=== PATIENT | male | born 1935 | race Caucasian/White ===

== ENCOUNTER 2020-06-20 22:33 | Inpatient (IN) ==
[2020-06-21] MEDS ORDERED: ACETAMINOPHEN 325 MG TABLET PO ONE (00:32)
[2020-06-21] MEDS ORDERED: LACTATED RINGERS 500 ML IV ONE (00:33)
[2020-06-21] MEDS ORDERED: niCARdipine 25 MG in 0.9 % SODIUM CHLORIDE 240 ML IV SCH (00:45)
--- NOTE | 2020-06-21 02:02 | Emergency Department Note ---
Fall HPI General Chief Complaint: Fall Stated Complaint: fall Time Seen by Provider: 06/20/20 22:57 Source: family Mode of arrival: wheelchair History of Present Illness HPI Narrative: Narrative: Patient is an 85-year-old male with history of multiple previous cerebrovascular accidents who has some persistent left-sided weakness and perhaps some difficulty walking and talking who had his right leg buckle on him tonight. He notes it feels like it cramps and he has perhaps some difficulty in getting his right leg to relax. He is able to move it otherwise appropriately. He denied any fall or injury to his head. Patient is on peritoneal dialysis and has had normal dialysis in the past 24 hours. He still makes urine and has not had any blood in the urine or change in the color of the urine. was concerned that perhaps he felt a bit warm to the touch. He has not had any other ill symptoms with no sore throat or cough. There has been no skin rash. They have not had any cloudy dialysate return. Patient is not on any blood thinners. He has had some recent change from being on carvedilol to being placed on what sounds like losartan. Patient is adamant that he does not have any headache or vision change but notes that his speech is thicker or more difficult to understand the normal. Incident occurred 4 hours prior to arrival. Patient has not had influenza vaccination or Covid vaccination. Related Data Home Medications Medication Instructions Recorded Confirmed aspirin 81 mg tablet,delayed 81 mg PO QDAY tab 06/05/18 06/21/20 release fluticasone furoate 27.5 1 spray INTRANASAL QDAY PRN ml 10/13/19 06/21/20 mcg/actuation nasal spray,suspension calcium carbonate 500 mg calcium 500 mg PO QDAY PRN 01/14/20 05/25/20 (1,250 mg) capsule Previous Rx's Medication Instructions Recorded finasteride 5 mg tablet 5 mg PO QDAY #90 tab 12/04/19 sevelamer carbonate 800 mg tablet 800 mg PO .TID with meals #90 tab 12/11/19 levothyroxine 125 mcg tablet 125 mcg PO QDAY #90 tab 12/29/19 tamsulosin 0.4 mg capsule 0.4 mg PO QHS #90 cap 12/29/19 gentamicin 0.1 % topical ointment 1 applic TOPICAL TID #30 g 01/14/20 Bedside Commode See Rx Instructions .ROUTE 02/12/20 .COMPLEX #1 device omeprazole 40 mg capsule,delayed 40 mg PO QDAY #30 cap 03/17/20 release Power wheelchair #1 ea 06/02/20 losartan 25 mg tablet 25 mg PO QDAY #90 tab 06/15/20 Allergies Allergy/AdvReac Type Severity Reaction Status Date / Time pravastatin Allergy Unknown Unknown Verified 06/20/20 22:36 rosuvastatin [From Crestor] Allergy Unknown Unknown Verified 06/20/20 22:36 [id number] Reductase Allergy Unknown Unknown Verified 06/20/20 22:36 Inhibitor yellow dye Allergy Unknown rash Verified 06/20/20 22:36 atorvastatin AdvReac Unknown muscle Verified 06/20/20 22:36 aches Penicillins AdvReac Unknown Sensitive Verified 06/20/20 22:36 fish Allergy Unknown Swelling Uncoded 05/25/20 15:00 of Lip/Tongue/Throat Review of Systems ROS ROS Narrative: Narrative: A 10 system review of systems was performed and found to be negative except as outlined above. [facility] Narrative Patient History Narrative: Narrative: Medical/Surgical/Family History All Active Problems (Updated 06/21/20 @ 04:56 by Mario Huynh MD) Right shoulder pain (Acute) Special needs due to difficulty walking unassisted (Acute) ESRD on peritoneal dialysis (Acute) Annual physical exam (Acute) Medicare annual wellness visit, initial (Acute) Encounter for peritoneal dialysis for ESRD (Acute) Hospital discharge follow-up (Acute) Rheumatoid arthritis (Acute) Inflammatory arthritis (Acute) 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 (Acute) COVID-19 virus IgG antibody test result unknown (Acute) Chronic systolic congestive heart failure due to valvular disease (Chronic) 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 stage 5 chronic kidney disease (Chronic) MGUS (monoclonal gammopathy of unknown significance) (Chronic) Secondary hyperparathyroidism of renal origin (Chronic) Anemia due to stage 4 chronic kidney disease (Chronic) Pseudobulbar affect (Acute) Chest pain (Acute) Prediabetes (Acute) Metabolic acidosis (Acute) Chronic Kidney Disease (Chronic) CKD (chronic kidney disease) stage 4, GFR 15-29 ml/min (Chronic) Abrasion (Acute) Cellulitis and abscess (Acute) Ankle sprain (Acute) Bronchitis (Acute) History of tonsillectomy (Acute) History of inguinal hernia repair, bilateral (Acute) History of hernia surgery (Acute) History of appendectomy (Acute) Vitamin D deficiency (Acute) Urinary tract infection (Acute 10/08/13) Urinary retention (Acute) Hypertrophy of nasal turbinates (Acute) Personal history of transient ischemic attack (TIA) and cerebral infarction without residual deficit (Acute) Testosterone deficiency (Acute) Testicular hypofunction (Acute) Sleep apnea (Acute) Renal osteodystrophy (Chronic) Nocturia (Acute) Mitral and aortic valve regurgitation (Acute) Incomplete bladder emptying (Acute 08/31/13) Hypertensive renal disease (Chronic) Hypertension, essential (Chronic) Hyperlipidemia (Acute) Erectile dysfunction (Acute) Elevated prostate specific antigen (PSA) (Acute) Edema (Acute) Depression (Acute) Stage III chronic kidney disease (Acute) Cerebrovascular disease (Acute) CVA (cerebral vascular accident) (Acute) Benign prostatic hypertrophy with lower urinary tract symptoms (LUTS) (Acute 08/31/13) Alkalosis (Acute) Medical History (Updated 06/21/20 @ 04:56 by Mario Huynh MD) Abrasion Alkalosis Anemia due to stage 4 chronic kidney disease No need for CALI therapy at this point Ankle sprain Annual physical exam 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 PD catheter placed on 12/24/2019. Training has begun. 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 Hypertrophy of nasal turbinates 02/23/2014-Dr Gutierrez Incomplete bladder emptying (08/31/13) Medicare annual wellness visit, initial Mitral and aortic valve regurgitation Nocturia 2-3 times a night Personal history of transient ischemic attack (TIA) and cerebral infarction without residual deficit Right sided numbness Prediabetes Pseudobulbar affect Results of prior CVA Renal osteodystrophy Monitor calcium phosphorus PTH and alkaline phosphatase Right shoulder pain Sleep apnea uses an oral device Special needs due to difficulty walking unassisted Stage III chronic kidney disease Testicular hypofunction Testosterone deficiency Type 2 diabetes mellitus borderline. No drug therapy Urinary retention Urinary tract infection (10/08/13) Vitamin D deficiency Surgical History History of appendectomy History of hernia surgery History of inguinal hernia repair, bilateral History of tonsillectomy Family History Mother Asthma Cardiac disease Enlarged heart Family history of malignant neoplasm of breast in first degree relative Father Essential hypertension Social History Smoking Status: Never smoker Alcohol Intake Frequency: holiday/special occasion only Substance Use: does not use Exam Narrative Narrative: Narrative: General: Alert, cooperative with exam. Able to answer questions appropriately but is with his speech being somewhat thick tongued HEENT: NCAT, PERRL, Oral pharynx with dry mucus membranes. No pharyngeal eryth chin. No conjunctival pallor Neck: Supple, No lymphadenopathy Chest: Stable Heart: Regular rate and rhythm without murmur Lungs: Clear to auscultation bilaterally Abdomen: Soft, nondistended, nontender. He has lower abdominal peritoneal dialysis catheter in place : No bladder distention Back: Nontraumatic, No CVA tenderness to palpation. Skin: No rash or lesion Extremity: No cyanosis or edema, pulses 1+ radial Neurologic: Cranial nerves III through XII appearing overall symmetric and intact. When asked to smile or show me his teeth his facial movements are symmetric but at times when he is speaking there is question of slight left facial droop which is not consistent. His speech is somewhat thick tongue and but understandable. Given his history of stroke it is difficult to say if this is acute but patients feels that the speech is worse than his baseline. Strength is 5 out of 5 bilateral upper and lower extremities with sensation intact. He is lifting and moving his right leg above the gurney noting that it feels crampy but there is appearing normal muscle movement with no calf swelling or tenderness and no focal muscle spasm appreciable. Again in general with the coordination of his movements he seems to be with some difficulty with fine motor control and dexterity Course Vital Signs Vital signs: Vital Signs Temperature 98.5 F 06/20/20 22:37 Pulse Rate 93 H 06/20/20 22:37 Respiratory Rate 16 06/20/20 22:37 Blood Pressure 177/124 06/20/20 22:37 Pulse Oximetry (%) 95 06/20/20 22:37 Temperature 98.4 F 06/21/20 00:34 Pulse Rate 106 H 06/21/20 02:55 Respiratory Rate 18 06/21/20 04:16 Blood Pressure 182/121 06/21/20 04:16 Pulse Oximetry (%) 91 06/21/20 02:55 MDM MDM Narrative Medical decision making narrative: Narrative: Patient presents 4 hours after an episode at home where his legs seem to give out on him and he was with spasm. He is with strength 5 out of 5 in all 4 extremities but there is some slowness in the coordination of his movements but overall this is symmetric. Certainly if he was with some degree of infection he could be with weakness or difficulty with coordination if he was hypovolemic after dialysis. Patient is however with blood pressures that were elevated up to 200. Considered hypertensive urgency or emergency and have placed him on a nicardipine drip. CT of the head did not show any intracranial hemorrhage but did show significant atrophy as well as evidence of previous infarcts but also question of a small lacunar infarct. I contemplated doing angiogram of the brain for better evaluation but given that patient is over the age of 84 had been with a potential fall despite there not being any evidence of head injury, as well as no lateralizing symptoms and his current maintained speech and that the onset was over 6 hours ago I did not feel the patient met criteria for extended protocols for TPA. At this time will continue with appropriate blood pressure management and talk to hospitalist for admission with consideration of MRI in the morning. Have discussed this consideration as well as the decision making on the angiogram of the brain with patient as well as . Regarding his right leg cramping, there does not appear to be any focal swelling or calf tenderness to imply blood clot. The leg is warm and well-perfused without evidence of arterial clot. He is lifting and moving the leg without evidence of hip fracture or other bony injury. There is no palpable hernia or abdominal pain associated with this complaint. May assume some degree of discomfort related to the current stroke. I do not have explanation for the patient to have speech changes and a focal right leg cramp that was not related to central neurologic cause. Lab Data Result diagrams: 06/21/20 00:45 06/21/20 00:34 Labs: Lab Results 06/21/20 06/21/20 06/21/20 Range/Units 00:34 00:45 00:45 WBC 6.8 (4.5-11.0) K/mcL RBC 3.37 L (4.50-5.90) M/mcL Hgb 10.8 L (13.5-16.5) g/dL Hct 33.7 L (41.0-55.0) % POC Hct 31 L (41-55) % MCV 100.0 (80.0-100.0) fL MCH 32.0 (26.0-34.0) pg MCHC 32.0 (31.0-36.0) g/dL RDW 13.5 (11.5-14.5) % Plt Count 290 (140-440) K/mcL MPV 9.8 (7.4-10.4) fL Neut % (Auto) 57.2 (38.0-78.0) % Lymph % (Auto) 25.3 (15.0-49.0) % Mobile % (Auto) 10.8 (1.0-12.0) % Eos % (Auto) 6.0 (0.0-7.0) % Baso % (Auto) 0.7 (0.0-2.0) % Lymph # (Auto) 1.72 (1.50-4.80) K/mcL Mobile # (Auto) 0.73 (0.10-0.90) K/mcL Eos # (Auto) 0.41 (0.00-0.70) K/mcL Baso # (Auto) 0.05 (0.00-0.20) K/mcL Absolute Neutrophils 3.88 (1.80-8.00) K/mcL POC PT (11.9-14.5) sec PT (11.9-14.5) sec POC INR (0.8-1.2) INR (0.9-1.1) APTT (20.0-37.0) sec ABG Methemoglobin (0.4-1.5) % VBG pH (7.32-7.42) U VBG pCO2 (41.0-51.0) mmHg VBG pO2 (25.0-40.0) mmHg VBG HCO3 (24.0-28.0) mmol/L VBG Total CO2 (25.0-29.0) mmol/L VBG O2 Saturation (40.0-70.0) % VBG Base Excess (-2-3) Carboxyhemoglobin (0.0-1.5) % THgb Total Hemoglobin (13.5-16.5) gm/Dl POC Sodium 143 (133-145) mEq/L Sodium 139 (133-145) mmol/L POC Potassium 3.7 (3.3-5.1) mEql/L Potassium 3.8 (3.3-5.1) mmol/L POC Chloride 108 (96-108) mEq/L Chloride 105 (96-108) mmol/L Carbon Dioxide 25 (22-30) mmol/L POC Total CO2 27 (22-30) mmol/L Anion Gap 9.0 (8.0-16.0) POC BUN 55 H (6-20) mg/dL BUN 64 H (8-23) mg/dL Creatinine 5.4 H* (0.7-1.2) mg/dL POC Creatinine 6.4 H* (0.6-1.2) mg/dL GFR Calculation 9 Glucose 122 H (70-105) mg/dL POC Glucose 127 H (70-105) mg/dL Calcium 8.6 (8.6-10.4) mg/dL POC WB Ioniz Calcium 1.10 L (1.16-1.32) mmEq/L Total Bilirubin 0.2 (0.1-1.0) mg/dL AST 19 (<40) U/L ALT 10 (<40) U/L Alkaline Phosphatase 56 (39-117) U/L Troponin T 0.03 H (<0.03) ng/mL Total Protein 6.0 (5.9-8.4) gm/dL Albumin 3.1 L (3.2-5.2) gm/dL Globulin 2.9 (2.2-3.7) gm/dL Albumin/Globulin Ratio 1.1 (1.0-2.3) 06/21/20 06/21/20 Range/Units 01:45 01:55 WBC (4.5-11.0) K/mcL RBC (4.50-5.90) M/mcL Hgb (13.5-16.5) g/dL Hct (41.0-55.0) % POC Hct (41-55) % MCV (80.0-100.0) fL MCH (26.0-34.0) pg MCHC (31.0-36.0) g/dL RDW (11.5-14.5) % Plt Count (140-440) K/mcL MPV (7.4-10.4) fL Neut % (Auto) (38.0-78.0) % Lymph % (Auto) (15.0-49.0) % Mobile % (Auto) (1.0-12.0) % Eos % (Auto) (0.0-7.0) % Baso % (Auto) (0.0-2.0) % Lymph # (Auto) (1.50-4.80) K/mcL Mobile # (Auto) (0.10-0.90) K/mcL Eos # (Auto) (0.00-0.70) K/mcL Baso # (Auto) (0.00-0.20) K/mcL Absolute Neutrophils (1.80-8.00) K/mcL POC PT 13.2 (11.9-14.5) sec PT 13.0 (11.9-14.5) sec POC INR 1.1 (0.8-1.2) INR 0.9 (0.9-1.1) APTT 22.2 (20.0-37.0) sec ABG Methemoglobin 0.3 L (0.4-1.5) % VBG pH 7.42 (7.32-7.42) U VBG pCO2 42.8 (41.0-51.0) mmHg VBG pO2 50.4 H (25.0-40.0) mmHg VBG HCO3 26.8 (24.0-28.0) mmol/L VBG Total CO2 28.1 (25.0-29.0) mmol/L VBG O2 Saturation 81.4 H (40.0-70.0) % VBG Base Excess 2 (-2-3) Carboxyhemoglobin 3.3 H (0.0-1.5) % THgb Total Hemoglobin 10.4 L (13.5-16.5) gm/Dl POC Sodium (133-145) mEq/L Sodium (133-145) mmol/L POC Potassium (3.3-5.1) mEql/L Potassium (3.3-5.1) mmol/L POC Chloride (96-108) mEq/L Chloride (96-108) mmol/L Carbon Dioxide (22-30) mmol/L POC Total CO2 (22-30) mmol/L Anion Gap (8.0-16.0) POC BUN (6-20) mg/dL BUN (8-23) mg/dL Creatinine (0.7-1.2) mg/dL POC Creatinine (0.6-1.2) mg/dL GFR Calculation Glucose (70-105) mg/dL POC Glucose (70-105) mg/dL Calcium (8.6-10.4) mg/dL POC WB Ioniz Calcium (1.16-1.32) mmEq/L Total Bilirubin (0.1-1.0) mg/dL AST (<40) U/L ALT (<40) U/L Alkaline Phosphatase (39-117) U/L Troponin T (<0.03) ng/mL Total Protein (5.9-8.4) gm/dL Albumin (3.2-5.2) gm/dL Globulin (2.2-3.7) gm/dL Albumin/Globulin Ratio (1.0-2.3) ED POC Tests ED POC Tests: KAREN - Influenza A Negative KAREN - Influenza B Negative KAREN - SARS Antigen Negative Discharge Plan Patient/Caregiver Discharge Instructions Pt seen by [employer]/PA only: No Clinical Impression: ESRD on peritoneal dialysis CVA (cerebral vascular accident) Qualifiers: CVA mechanism: unspecified Qualified Code(s): I63.9 - Cerebral infarction, unspecified Patient Disposition: Xfer As Inpt ([facility]) Condition: Serious Follow up with: Sarmad Quintana MD [Primary Care Provider] - Prescriptions: No Action finasteride 5 mg tablet 5 mg PO QDAY Qty: 90 RF: 3 sevelamer carbonate 800 mg tablet 800 mg PO .TID with meals Qty: 90 RF: 11 levothyroxine [Synthroid] 125 mcg tablet 125 mcg PO QDAY Qty: 90 RF: 1 tamsulosin [Flomax] 0.4 mg capsule 0.4 mg PO QHS Qty: 90 RF: 1 Hold Instructions: Doctor's Order (DME) Power wheelchair See Rx Instructions .Route .MEDSUPPLY Qty: 1 RF: 0 losartan 25 mg tablet 25 mg PO QDAY Qty: 90 RF: 3 aspirin 81 mg tablet,delayed release (DR/EC) 81 mg PO QDAY RF: 0 Flonase Sensimist 27.5 mcg/actuation spray,suspension 1 spray INTRANASAL QDAY PRN (Reason: Allergies) RF: 0 gentamicin 0.1 % ointment 1 applic TOPICAL TID Qty: 30 RF: 11 calcium carbonate 500 mg calcium (1,250 mg) capsule 500 mg PO QDAY PRNRF: 0 Bedside Commode See Rx Instructions .ROUTE .COMPLEX Qty: 1 RF: 0 omeprazole 40 mg capsule,delayed release(DR/EC) 40 mg PO QDAY Qty: 30 RF: 3
[2020-06-21 02:10] LABS: ABG Methemoglobin 0.3 % (0.4-1.5); Total Hemoglobin 10.4 gm/Dl (13.5-16.5); VBG Base Excess 2 (-2-3); VBG HCO3 26.8 mmol/L (24.0-28.0); VBG Oxygen Saturation 81.4 % (40.0-70.0); VBG PCO2 42.8 mmHg (41.0-51.0); VBG PH 7.42 U (7.32-7.42); VBG PO2 50.4 mmHg (25.0-40.0); VBG Total CO2 28.1 mmol/L (25.0-29.0)
[2020-06-21 02:12] LABS: Basophils # (Auto) 0.05 K/mcL (0.00-0.20); Basophils % (Auto) 0.7 % (0.0-2.0); Eosinophils # (Auto) 0.41 K/mcL (0.00-0.70); Hematocrit 33.7 % (41.0-55.0); Hemoglobin 10.8 g/dL (13.5-16.5); Lymphocytes # (Auto) 1.72 K/mcL (1.50-4.80); Lymphocytes % (Auto) 25.3 % (15.0-49.0); Mean Platelet Volume 9.8 fL (7.4-10.4); Monocytes # (Auto) 0.73 K/mcL (0.10-0.90); Monocytes % (Auto) 10.8 % (1.0-12.0); Neutrophils % (Auto) 57.2 % (38.0-78.0); Platelet Count 290 K/mcL (140-440); RBC 3.37 M/mcL (4.50-5.90); Red Cell Distribution Width 13.5 % (11.5-14.5); WBC 6.8 K/mcL (4.5-11.0)
[2020-06-21 02:14] LABS: POC Blood Urea Nitrogen 55 mg/dL (6-20); POC CO2 27 mmol/L (22-30); POC Chloride 108 mEq/L (96-108); POC Creatinine 6.4 mg/dL (0.6-1.2); POC Glucose, Random 127 mg/dL (70-105); POC Hematocrit 31 % (41-55); POC Potassium 3.7 mEql/L (3.3-5.1); POC Sodium 143 mEq/L (133-145)
[2020-06-21 02:15] LABS: POC INR 1.1 (0.8-1.2); POC Pro Time 13.2 sec (11.9-14.5)
[2020-06-21 02:36] LABS: Partial Thromboplastin Time 22.2 sec (20.0-37.0)
[2020-06-21 02:37] LABS: INR 0.9 (0.9-1.1)
[2020-06-21 02:48] LABS: ALT/SGPT 10 U/L (<40); AST/SGOT 19 U/L (<40); Albumin 3.1 gm/dL (3.2-5.2); Albumin/Globulin Ratio 1.1 (1.0-2.3); Alkaline Phosphatase 56 U/L (39-117); Bilirubin,Total 0.2 mg/dL (0.1-1.0); Blood Urea Nitrogen 64 mg/dL (8-23); Calcium 8.6 mg/dL (8.6-10.4); Carbon Dioxide 25 mmol/L (22-30); Chloride 105 mmol/L (96-108); Globulin 2.9 gm/dL (2.2-3.7); Glomerular Filtration Rate 9; Glucose 122 mg/dL (70-105)
--- NOTE | 2020-06-21 03:56 | Cat Scan Report ---
CLINICAL INFORMATION: COMPARISON: None. TECHNIQUE: 2.5 mm helical slices were obtained in the skull base to vertex. Following reconstruction, axial reformatted images were reviewed at bone and parenchymal windows. The exam was performed using radiation dose optimization techniques including, but not limited to, automated exposure control, adjustment of the mA and/or kV according to patient size and use of iterative reconstruction technique. FINDINGS: The ventricles, sulci, fissures, and cisterns are symmetrically enlarged compatible with moderate age-related atrophy. No subdural hemorrhage or extra-axial fluid collection appreciated. Extensive chronic ischemic changes in the cerebral white matter are expected for age. 20 mm remote lacunar infarct in the right frontal white matter extending to caudate nucleus appreciated there is also a 7 mm remote lacunar infarct in the posterior left lentiform nucleus a 6 mm remote lacunar infarct in the right pontomedullary junction. There is no intracerebral hemorrhage, mass effect, edema or other acute finding.. Bone windows show no osseous abnormality. IMPRESSION: Moderate senescent atrophy and chronic ischemic changes in the deep cerebral white matter with remote lacunar infarcts in the deep white matter, basal ganglia and right pontomedullary junction. There is no edema, hemorrhage or other acute finding Interpreted and Authenticated by: Humberto Toney 06/21/20
[2020-06-21] MEDS ORDERED: ONDANSETRON 4 MG/2 ML VIAL IV PRN ×2 (04:35→07:37)
--- NOTE | 2020-06-21 04:38 | XRay Report ---
CLINICAL INFORMATION: h/o cva COMPARISON: 01/15/2017 FINDINGS: Heart size, mediastinum and pulmonary vessels are normal. There is mild bibasilar atelectasis. No definite infiltrates or effusions. IMPRESSION: Mild bibasilar atelectasis Interpreted and Authenticated by: Humberto Toney 06/21/20
[2020-06-21 05:06] LABS: Appearance,Urine CLEAR (Clear); Bilirubin,Urine Negative (Negative); Color,Urine STRAW; Culture Indicated,Urine No; Glucose,Urine (UA) 50 mg/dL (Negative); Ketones,Urine Negative (Negative); Leukocyte Esterase,Urine Negative /ug (Negative); Mucus,Urine FEW /hpf; Nitrate,Urine Negative (Negative); Protein,Urine 30 mg/dL (Negative); Specific Gravity,Urine 1.008 (1.000-1.035); Urine Blood 0.03 mg/dL (Negative); Urine RBC < 1 /hpf (0-3); Urine Squamous Epithelial Cell 0 /hpf (0-4); Urine WBC 2 /hpf (0-4); Urobilinogen,Urine Negative
[2020-06-21 05:14] LABS: Amphetamine Screen,Urine None detected; Barbiturate Screen,Urine None detected; Benzodiazepines Screen,Urine None detected; Cannabinoid Screen,Urine None detected; Cocaine Screen,Urine None detected; Opiate Screen,Urine None detected; Oxycodone, Urine Screen None detected; Phencyclidine Screen,Urine None detected
--- NOTE | 2020-06-21 05:25 | Emergency Department Note ---
ED Note Addendum Note Addendum: ECG time 0045 demonstrates sinus rhythm at a rate of 86. QRS axis is leftward QRS duration is borderline prolonged at [address] or T wave changes concerning for ischemic process. No prior ECG available for comparison
[2020-06-21] MEDS ORDERED: POLYETHYLENE GLYCOL 3350 17 GM PACKET PO PRN (07:37)
[2020-06-21] MEDS ORDERED: ACETAMINOPHEN 650 MG/65 ML BAG IV PRN (07:37)
[2020-06-21] MEDS ORDERED: POTASSIUM CHLORIDE 40 MEQ in DEXTROSE 5% IN WATER 500 ML IV PRN (07:37)
[2020-06-21] MEDS ORDERED: ONDANSETRON 4 MG ODT TABLET SL PRN (07:37)
[2020-06-21] MEDS ORDERED: MAGNESIUM SULFATE 2 GM/50 ML BAG IV PRN (07:37)
[2020-06-21] MEDS ORDERED: BISACODYL 10 MG SUPP.RECT PR PRN (07:37)
[2020-06-21] MEDS ORDERED: FLUTICASONE FUROATE NAS PRN (07:45)
--- NOTE | 2020-06-21 07:53 | Internal Med History&Physical ---
HPI History of Present Illness Patient information: Note initiated : 06/21/20 at 7:53 am Service Date, if different from initiated Date: [] Patient: Murray Beyer 85 y/o M admitted on 06/21/20 for fall. Chief Complaint: [] History of present illness: Mr. Beyer is a 85 year old M with a history of IHD, last EF 55%/PCI with stenting/recurrent CVA and ESRD on PD who presents to the ER with left-sided weakness that started roughly 6 hours prior to presentation. Patient was brought into the ER for evaluation. Patient underwent neuroimaging including head CT which was unremarkable for acute process. Following ER evaluation patient was beyond the window for intervention/TPA. Hospitalist service was consulted due to persistent weakness and CVA symptoms, systolics over 200. In the ER patient was started on nicardipine drip. At the time of my evaluation patient is weak on the left side, demonstrate expressive aphasia. Most of the history was obtained from patient's /ER physician and review of medical records. He is unable to answer any questions. Systolics noted around 150s. Patient normally usually takes aspirin 81 mg but currently not on statin. He has been on Plavix and Brilinta in the past which was discontinued. He is also discontinued statin due to generalized weakness. Patient was initiated on statin/Plavix along with continued aspirin for severe underlying atherosclerotic disease. Further neuroimaging including MRI brain/echocardiogram ordered Patient was unable to provide answers to review of system questions. 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 (Acute) COVID-19 virus IgG antibody test result unknown (Acute) Chronic systolic congestive heart failure due to valvular disease (Chronic) 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 stage 5 chronic kidney disease (Chronic) MGUS (monoclonal gammopathy of unknown significance) (Chronic) Secondary hyperparathyroidism of renal origin (Chronic) Pseudobulbar affect (Acute) Chest pain (Acute) Prediabetes (Acute) Abrasion (Acute) Cellulitis and abscess (Acute) Ankle sprain (Acute) Bronchitis (Acute) History of tonsillectomy (Acute) History of inguinal hernia repair, bilateral (Acute) History of hernia surgery (Acute) History of appendectomy (Acute) Vitamin D deficiency (Acute) Urinary tract infection (Acute 10/08/13) Urinary retention (Acute) Hypertrophy of nasal turbinates (Acute) Personal history of transient ischemic attack (TIA) and cerebral infarction without residual deficit (Acute) Testosterone deficiency (Acute) Testicular hypofunction (Acute) Sleep apnea (Acute) Renal osteodystrophy (Chronic) Nocturia (Acute) Mitral and aortic valve regurgitation (Acute) Incomplete bladder emptying (Acute 08/31/13) Hypertensive renal disease (Chronic) Hypertension, essential (Chronic) Hyperlipidemia (Acute) Erectile dysfunction (Acute) Elevated prostate specific antigen (PSA) (Acute) Depression (Acute) Cerebrovascular disease (Acute) CVA (cerebral vascular accident) (Acute) Benign prostatic hypertrophy with lower urinary tract symptoms (LUTS) (Acute 08/31/13) Medical History (Updated 06/23/20 @ 08:26 by Kylah Dhillon MD) Abrasion Ankle sprain Annual physical exam 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 PD catheter placed on 12/24/2019. Training has begun. Benign prostatic hypertrophy with lower urinary tract symptoms (LUTS) (08/31/13) Bronchitis Cellulitis and abscess Cerebrovascular disease Chronic systolic congestive heart failure due to valvular disease Add isordil and hydralazine to to carvedilol, all at low doses Next visit check labs CVA (cerebral vascular accident) 207, three, left sided weakness Depression Nervousness and depression Elevated prostate specific antigen (PSA) Erectile dysfunction ESRD on peritoneal dialysis Hospital discharge follow-up Hyperlipidemia Hypertension, essential Controlled on amlodipine 10 mg a day, carvedilol 6.25 mg twice a day Hypertensive renal disease Blood pressure acceptably well controlled on carvedilol. Hypertrophy of nasal turbinates 02/23/2014-Dr Gutierrez Incomplete bladder emptying (08/31/13) Medicare annual wellness visit, initial Mitral and aortic valve regurgitation Nocturia 2-3 times a night Personal history of transient ischemic attack (TIA) and cerebral infarction without residual deficit Right sided numbness Prediabetes Pseudobulbar affect Results of prior CVA Renal osteodystrophy Monitor calcium phosphorus PTH and alkaline phosphatase Right shoulder pain Sleep apnea uses an oral device Special needs due to difficulty walking unassisted Testicular hypofunction Testosterone deficiency Type 2 diabetes mellitus borderline. No drug therapy Urinary retention Urinary tract infection (10/08/13) Vitamin D deficiency Surgical History History of appendectomy History of hernia surgery History of inguinal hernia repair, bilateral History of tonsillectomy Family History Mother Asthma Cardiac disease Enlarged heart Family history of malignant neoplasm of breast in first degree relative Father Essential hypertension Social History (Updated 08/06/19 @ 12:45 by Toro Bautsita MD) marital status: alcohol intake frequency: holiday/special occasion only substance use type: does not use MEDS/ALLERGIES Home Medications and Allergies Home Medications Medication Instructions Recorded Confirmed Type aspirin 81 mg tablet,delayed 81 mg PO QDAY tab 06/05/18 06/21/20 History release fluticasone furoate 27.5 1 spray INTRANASAL QDAY PRN ml 10/13/19 06/21/20 History mcg/actuation nasal spray,suspension finasteride 5 mg tablet 5 mg PO QDAY #90 tab 12/04/19 06/21/20 Rx sevelamer carbonate 800 mg tablet 800 mg PO .TID with meals #90 tab 12/11/19 06/21/20 Rx levothyroxine 125 mcg tablet 125 mcg PO QDAY #90 tab 12/29/19 06/21/20 Rx tamsulosin 0.4 mg capsule 0.4 mg PO QHS #90 cap 12/29/19 06/21/20 Rx gentamicin 0.1 % topical ointment 1 applic TOPICAL TID #30 g 01/14/20 06/21/20 Rx Bedside Commode See Rx Instructions .ROUTE 02/12/20 06/21/20 Rx .COMPLEX #1 device omeprazole 40 mg capsule,delayed 40 mg PO QDAY #30 cap 03/17/20 06/21/20 Rx release Power wheelchair #1 ea 06/02/20 06/21/20 Rx losartan 25 mg tablet 25 mg PO QDAY #90 tab 06/15/20 06/21/20 Rx Allergies Allergy/AdvReac Type Severity Reaction Status Date / Time Fish Containing Products Allergy Severe Swelling Verified 06/22/20 06:54 of Lip/Tongue/Throat yellow dye Allergy Mild rash Verified 06/22/20 06:54 rosuvastatin [From Crestor] Allergy Unknown Unknown Verified 06/20/20 22:36 atorvastatin AdvReac Intermediate Muscle Pain Verified 06/22/20 06:54 pravastatin AdvReac Intermediate Cramping Verified 06/22/20 06:54 of the Muscles Penicillins AdvReac Mild Sensitive Verified 06/22/20 06:54 EXAM Constitutional Vitals: Temp Pulse Resp BP Pulse Ox 99.2 F H 89 14 157/95 98 06/21/20 05:59 06/21/20 06:30 06/21/20 06:30 06/21/20 06:01 06/21/20 06:30 Expressive aphasia Head normocephalic Oral cavity moist No ear nose discharge Eye movement symmetrical Neck supple no lymphadenopathy S1-S2 regular Nonlabored breathing Nondistended nontender abdomen Lower extremity no cyanosis clubbing or joint swelling Skin no suspicious lesion Psych anxious Neuro left-sided weakness, expressive aphasia. No hallucination delusion DATA Data Completed and Pending Labs: Labs from last 24 hours 06/21/20 06/21/20 06/21/20 04:00 04:00 01:55 WBC RBC Hgb Hct POC Hct MCV MCH MCHC RDW Plt Count MPV Neut % (Auto) Lymph % (Auto) [place] % (Auto) Eos % (Auto) Baso % (Auto) Lymph # (Auto) [place] # (Auto) Eos # (Auto) Baso # (Auto) Absolute Neutrophils POC PT 13.2 PT 13.0 POC INR 1.1 INR 0.9 APTT 22.2 ABG Methemoglobin VBG pH VBG pCO2 VBG pO2 VBG HCO3 VBG Total CO2 VBG O2 Saturation VBG Base Excess Carboxyhemoglobin Total Hemoglobin POC Sodium Sodium POC Potassium Potassium POC Chloride Chloride Carbon Dioxide POC Total CO2 Anion Gap POC BUN BUN Creatinine POC Creatinine GFR Calculation Glucose POC Glucose Calcium POC WB Ioniz Calcium Total Bilirubin AST ALT Alkaline Phosphatase Troponin T Total Protein Albumin Globulin Albumin/Globulin Ratio Urine Color Straw Urine Appearance Clear Urine pH 7.0 Ur Specific [place] 1.008 Urine Protein 30 A Urine Glucose (UA) 50 A Urine Ketones Negative Urine Occult Blood 0.03 Urine Nitrate Negative Urine Bilirubin Negative Urine Urobilinogen Negative Ur Leukocyte Esterase Negative Urine RBC < 1 Urine WBC 2 Ur Squamous Epith Cells 0 Urine Bacteria None Urine Mucus Few A Ur Culture Indicated? No Urine Opiates Screen None detected Ur Opiates Confirm Pending Ur Oxycodone Screen None detected Urine Methadone Screen None detected Ur Methadone Confirm Pending Ur Barbiturates Screen None detected Ur Barbiturate Confirm Pending Ur Phencyclidine Scrn None detected Urine PCP Confirm Pending Ur Amphetamines Screen None detected U Amphetamines Confirm Pending U Benzodiazepines Scrn None detected U Benzodiazepine Confm Pending Urine Cocaine Screen None detected Urine Cocaine Confirm Pending U Cannabinoids Confirm Pending U Marijuana (THC) Screen None detected 06/21/20 06/21/20 06/21/20 01:45 00:45 00:45 WBC 6.8 RBC 3.37 L Hgb 10.8 L Hct 33.7 L POC Hct MCV 100.0 MCH 32.0 MCHC 32.0 RDW 13.5 Plt Count 290 MPV 9.8 Neut % (Auto) 57.2 Lymph % (Auto) 25.3 [place] % (Auto) 10.8 Eos % (Auto) 6.0 Baso % (Auto) 0.7 Lymph # (Auto) 1.72 [place] # (Auto) 0.73 Eos # (Auto) 0.41 Baso # (Auto) 0.05 Absolute Neutrophils 3.88 POC PT PT POC INR INR APTT ABG Methemoglobin 0.3 L VBG pH 7.42 VBG pCO2 42.8 VBG pO2 50.4 H VBG HCO3 26.8 VBG Total CO2 28.1 VBG O2 Saturation 81.4 H VBG Base Excess 2 Carboxyhemoglobin 3.3 H Total Hemoglobin 10.4 L POC Sodium Sodium POC Potassium Potassium POC Chloride Chloride Carbon Dioxide POC Total CO2 Anion Gap POC BUN BUN Creatinine POC Creatinine GFR Calculation Glucose POC Glucose Calcium POC WB Ioniz Calcium Total Bilirubin AST ALT Alkaline Phosphatase Troponin T 0.03 H Total Protein Albumin Globulin Albumin/Globulin Ratio Urine Color Urine Appearance Urine pH Ur Specific [place] Urine Protein Urine Glucose (UA) Urine Ketones Urine Occult Blood Urine Nitrate Urine Bilirubin Urine Urobilinogen Ur Leukocyte Esterase Urine RBC Urine WBC Ur Squamous Epith Cells Urine Bacteria Urine Mucus Ur Culture Indicated? Urine Opiates Screen Ur Opiates Confirm Ur Oxycodone Screen Urine Methadone Screen Ur Methadone Confirm Ur Barbiturates Screen Ur Barbiturate Confirm Ur Phencyclidine Scrn Urine PCP Confirm Ur Amphetamines Screen U Amphetamines Confirm U Benzodiazepines Scrn U Benzodiazepine Confm Urine Cocaine Screen Urine Cocaine Confirm U Cannabinoids Confirm U Marijuana (THC) Screen 06/21/20 00:34 WBC RBC Hgb Hct POC Hct 31 L MCV MCH MCHC RDW Plt Count MPV Neut % (Auto) Lymph % (Auto) [place] % (Auto) Eos % (Auto) Baso % (Auto) Lymph # (Auto) [place] # (Auto) Eos # (Auto) Baso # (Auto) Absolute Neutrophils POC PT PT POC INR INR APTT ABG Methemoglobin VBG pH VBG pCO2 VBG pO2 VBG HCO3 VBG Total CO2 VBG O2 Saturation VBG Base Excess Carboxyhemoglobin Total Hemoglobin POC Sodium 143 Sodium 139 POC Potassium 3.7 Potassium 3.8 POC Chloride 108 Chloride 105 Carbon Dioxide 25 POC Total CO2 27 Anion Gap 9.0 POC BUN 55 H BUN 64 H Creatinine 5.4 H* POC Creatinine 6.4 H* GFR Calculation 9 Glucose 122 H POC Glucose 127 H Calcium 8.6 POC WB Ioniz Calcium 1.10 L Total Bilirubin 0.2 AST 19 ALT 10 Alkaline Phosphatase 56 Troponin T Total Protein 6.0 Albumin 3.1 L Globulin 2.9 Albumin/Globulin Ratio 1.1 Urine Color Urine Appearance Urine pH Ur Specific [place] Urine Protein Urine Glucose (UA) Urine Ketones Urine Occult Blood Urine Nitrate Urine Bilirubin Urine Urobilinogen Ur Leukocyte Esterase Urine RBC Urine WBC Ur Squamous Epith Cells Urine Bacteria Urine Mucus Ur Culture Indicated? 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 Initiate dual antiplatelet/statin treatment, telemetry monitoring/permissive hypertension/aggressive management per stroke protocol. Early rehab * Ischemic heart disease status post PCI 2016. Was on Brilinta for a year and currently only on aspirin 81.(Not on statin due to patient's wish) * ESRD on PD managed by nephrology * BPH continue tamsulosin * History of hypertension , initiate losartan 24 hours * Hypothyroidism continue thyroxine * Limited code Plan * Inpatient admission * Stroke management protocol * MRI brain/echocardiogram * Dual antiplatelet/statin * Nephrology consult * Aggressive full stroke rehab * Nutrition support Time Spent With Patient Time: Total time spent is greater than 50% in coordination of care (as documented) at patient's floor/unit and/or counseling patient:
--- NOTE | 2020-06-21 09:09 | Nephrology Consult Note ---
HPI Data of Consult Patient: known to practice within the last 3 years Consult date: 06/21/20 Requesting physician: Yamil Russell Primary Care Provider: Sarmad Quintana MD Consult Narrative Patient Information: Note initiated : 06/21/20 at 9:07 am Patient: Murray Beyer 85 y/o M admitted on 06/21/20 for fall. Chief Complaint: Weakness and aphasia Murray Beyer is an 85-year-old male with end stage renal disease on peritoneal dialysis, 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 He presented to ED for weakness and aphasia. SBP was over 200 and started on nicardipine drip. Nephrology consultation was requested. Chief complaint: Weakness and aphasia Reason for consult: End stage renal disease on peritoneal dialysis cc:: CC: Yamil Russell Review of Systems ROS unobtainable: other (due to aphasia) PFSH PFSH All Active Problems (Updated 06/21/20 @ 09:13 by Kylah Dhillon MD) Right shoulder pain (Acute) Special needs due to difficulty walking unassisted (Acute) ESRD on peritoneal dialysis (Chronic) Annual physical exam (Acute) Medicare annual wellness visit, initial (Acute) Encounter for peritoneal dialysis for ESRD (Acute) Hospital discharge follow-up (Acute) Rheumatoid arthritis (Acute) Inflammatory arthritis (Acute) 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 (Acute) COVID-19 virus IgG antibody test result unknown (Acute) Chronic systolic congestive heart failure due to valvular disease (Chronic) 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 stage 5 chronic kidney disease (Chronic) MGUS (monoclonal gammopathy of unknown significance) (Chronic) Secondary hyperparathyroidism of renal origin (Chronic) Anemia due to stage 4 chronic kidney disease (Chronic) Pseudobulbar affect (Acute) Chest pain (Acute) Prediabetes (Acute) Metabolic acidosis (Acute) Chronic Kidney Disease (Chronic) CKD (chronic kidney disease) stage 4, GFR 15-29 ml/min (Chronic) Abrasion (Acute) Cellulitis and abscess (Acute) Ankle sprain (Acute) Bronchitis (Acute) History of tonsillectomy (Acute) History of inguinal hernia repair, bilateral (Acute) History of hernia surgery (Acute) History of appendectomy (Acute) Vitamin D deficiency (Acute) Urinary tract infection (Acute 10/08/13) Urinary retention (Acute) Hypertrophy of nasal turbinates (Acute) Personal history of transient ischemic attack (TIA) and cerebral infarction without residual deficit (Acute) Testosterone deficiency (Acute) Testicular hypofunction (Acute) Sleep apnea (Acute) Renal osteodystrophy (Chronic) Nocturia (Acute) Mitral and aortic valve regurgitation (Acute) Incomplete bladder emptying (Acute 08/31/13) Hypertensive renal disease (Chronic) Hypertension, essential (Chronic) Hyperlipidemia (Acute) Erectile dysfunction (Acute) Elevated prostate specific antigen (PSA) (Acute) Edema (Acute) Depression (Acute) Stage III chronic kidney disease (Acute) Cerebrovascular disease (Acute) CVA (cerebral vascular accident) (Acute) Benign prostatic hypertrophy with lower urinary tract symptoms (LUTS) (Acute 08/31/13) Alkalosis (Acute) Medical History (Updated 06/21/20 @ 09:13 by Kylah Dhillon MD) Abrasion Alkalosis Anemia due to stage 4 chronic kidney disease No need for CALI therapy at this point Ankle sprain Annual physical exam 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 PD catheter placed on 12/24/2019. Training has begun. 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 Hypertrophy of nasal turbinates 02/23/2014-Dr Gutierrez Incomplete bladder emptying (08/31/13) Medicare annual wellness visit, initial Mitral and aortic valve regurgitation Nocturia 2-3 times a night Personal history of transient ischemic attack (TIA) and cerebral infarction without residual deficit Right sided numbness Prediabetes Pseudobulbar affect Results of prior CVA Renal osteodystrophy Monitor calcium phosphorus PTH and alkaline phosphatase Right shoulder pain Sleep apnea uses an oral device Special needs due to difficulty walking unassisted Stage III chronic kidney disease Testicular hypofunction Testosterone deficiency Type 2 diabetes mellitus borderline. No drug therapy Urinary retention Urinary tract infection (10/08/13) Vitamin D deficiency Surgical History History of appendectomy History of hernia surgery History of inguinal hernia repair, bilateral History of tonsillectomy Family History Mother Asthma Cardiac disease Enlarged heart Family history of malignant neoplasm of breast in first degree relative Father Essential hypertension Social History (Updated 08/06/19 @ 12:45 by Toro Bautista MD) marital status: alcohol intake frequency: holiday/special occasion only substance use type: does not use MEDS/ALLERGIES Home Medications and Allergies Home Medications Medication Instructions Recorded Confirmed Type aspirin 81 mg tablet,delayed 81 mg PO QDAY tab 06/05/18 06/21/20 History release fluticasone furoate 27.5 1 spray INTRANASAL QDAY PRN ml 10/13/19 06/21/20 History mcg/actuation nasal spray,suspension finasteride 5 mg tablet 5 mg PO QDAY #90 tab 12/04/19 06/21/20 Rx sevelamer carbonate 800 mg tablet 800 mg PO .TID with meals #90 tab 12/11/19 06/21/20 Rx levothyroxine 125 mcg tablet 125 mcg PO QDAY #90 tab 12/29/19 06/21/20 Rx tamsulosin 0.4 mg capsule 0.4 mg PO QHS #90 cap 12/29/19 06/21/20 Rx calcium carbonate 500 mg calcium 500 mg PO QDAY PRN 01/14/20 06/21/20 History (1,250 mg) capsule gentamicin 0.1 % topical ointment 1 applic TOPICAL TID #30 g 01/14/20 06/21/20 Rx Bedside Commode See Rx Instructions .ROUTE 02/12/20 05/25/20 Rx .COMPLEX #1 device omeprazole 40 mg capsule,delayed 40 mg PO QDAY #30 cap 03/17/20 06/21/20 Rx release Power wheelchair #1 ea 06/02/20 Rx losartan 25 mg tablet 25 mg PO QDAY #90 tab 06/15/20 06/21/20 Rx Allergies Allergy/AdvReac Type Severity Reaction Status Date / Time rosuvastatin [From Crestor] Allergy Unknown Unknown Verified 06/20/20 22:36 [id number] Reductase Allergy Unknown Unknown Verified 06/20/20 22:36 Inhibitor yellow dye Allergy Unknown rash Verified 06/20/20 22:36 atorvastatin AdvReac Mild Muscle Pain Verified 06/21/20 06:44 pravastatin AdvReac Mild Cramping Verified 06/21/20 06:44 of the Muscles Penicillins AdvReac Unknown Sensitive Verified 06/20/20 22:36 fish Allergy Unknown Swelling Uncoded 05/25/20 15:00 of Lip/Tongue/Throat Physical Examination Vital Signs Vital signs: Temp Pulse Resp BP Pulse Ox 99.2 F H 89 14 157/95 98 06/21/20 05:59 06/21/20 06:30 06/21/20 06:30 06/21/20 06:01 06/21/20 06:30 General Appearance General appearance: chronically ill and fatigue EENT EENT: mucous membranes dry Neck Neck: no JVD Respiratory Respiratory: clear Cardiovascular Cardiology: no edema and regular rhythm Gastrointestinal Gastrointestinal: no tenderness Integumentary Integumentary: no rash and warm and dry Neurologic Neurologic: aphasic and aphasia Musculoskeletal Musculoskeletal: no deformities Psychiatric Psychiatric: mood/affect appropriate and cooperative Results Lab Results Result Diagrams: 06/21/20 00:45 06/21/20 00:34 Lab results: Most recent lab results Calcium 8.6 mg/dL (8.6-10.4) 06/21/20 00:34 A/P Assessment and plan (1) ESRD on peritoneal dialysis: Assessment and plan: Murray Beyer is an 85-year-old male with end stage renal disease on peritoneal dialysis, 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 He presented to ED for weakness and aphasia. SBP was over 200 and started on nicardipine drip. Nephrology consultation was requested. End stage renal disease on peritoneal dialysis. Chronic anemia due to ESRD. Hypertensive urgency. Recommendations/Plan: Continue CCPD with 1.5% peritoneal dialysis solution, total volume 8,500 ml, 5 exchanges of 2,000 ml overnight, total time 8 hours, last fill 300 ml. Status: Chronic Time Spent With Patient Time: Total time spent is greater than 50% in coordination of care (as documented) at patient's floor/unit and/or counseling patient:
[2020-06-21] MEDS: SEVELAMER 800 MG TABLET PO SCH ×3 (11:40→17:59)
[2020-06-21] MEDS: GENTAMICIN CRM 0.1% TUBE 15GM TOPICAL SCH ×3 (11:41→22:52)
[2020-06-21] MEDS: DOCUSATE SODIUM 100 MG CAPSULE PO SCH ×2 (11:41→21:28)
[2020-06-21] MEDS: CLOPIDOGREL 75 MG TABLET PO SCH (11:59)
[2020-06-21] MEDS: hydrALAZINE 20 MG/ML VIAL IV PRN (11:59)
[2020-06-21] MEDS: MULTIVIT,THER IRON,CA,FA & MIN 1 TABLET PO SCH (11:59)
[2020-06-21] MEDS: HEPARIN 5,000 UNIT/ML VIAL SQ SCH ×2 (11:59→21:26)
[2020-06-21] MEDS: ACETAMINOPHEN 325 MG TABLET PO PRN (12:00)
[2020-06-21] MEDS: ASPIRIN 81 MG TAB.CHEW PO SCH (12:00)
[2020-06-21] MEDS: LOSARTAN 25 MG TABLET PO SCH (12:00)
[2020-06-21] MEDS: LEVOTHYROXINE 125 MCG TABLET PO SCH (12:00)
[2020-06-21] MEDS: OMEPRAZOLE 20 MG CAPSULE PO SCH (12:00)
[2020-06-21] MEDS: CETIRIZINE 10 MG TABLET PO SCH (12:15)
[2020-06-21] MEDS: FINASTERIDE 5 MG TABLET PO SCH (12:15)
[2020-06-21] MEDS: 0.9 % SODIUM CHLORIDE 10 ML SYRINGE IV SCH ×2 (12:16→22:23)
--- NOTE | 2020-06-21 12:28 | Magnetic Resonance Report ---
CLINICAL INFORMATION: Trauma-now with aphasia COMPARISON: Head CT 06/21/2020 TECHNIQUE:Sagittal T1 FLAIR, axial T1 FLAIR, T2 FLAIR propeller, T2 propeller, gradient, diffusion, ADC and coronal T2 weighted images were acquired. FINDINGS: The ventricles, sulci, fissures and cisterns are symmetrically enlarged compatible with moderate age-related atrophy. There are no extra-axial fluid collections or masses identified. Moderate chronic ischemic changes in the deep cerebral white matter are expected for age. A 8 x 3 mm region of restricted diffusion in the posterior limb of the left internal capsule is compatible with nonhemorrhagic acute lacunar infarct. Scattered remote lacunar infarcts again noted: 12 mm in the deep left frontal white matter of the caudate nucleus, 5 mm posterior left lentiform nucleus, 13 mm superior right lentiform nucleus extending to duffy radiata fibers of the right frontal lobe, 4-5 old lacunar infarcts ranging up to 5 mm in the left external capsule and 4 mm in the right pontomedullary junction. There is no intracerebral hemorrhage. Signal void in cerebral arteries is normal. IMPRESSION: 1. 8 x 3 mm acute nonhemorrhagic lacunar infarct in the posterior limb of the left internal capsule. 2. Scattered remote lacunar infarcts in basal ganglia, deep cerebral white matter and the right pontomedullary junction. 3. Moderate atrophy with chronic ischemic changes in the deep cerebral white matter. Interpreted and Authenticated by: Humberto Toney 06/21/20
--- NOTE | 2020-06-21 13:12 | Ultrasound Report ---
CLINICAL INFORMATION: Abdominal pain COMPARISON: None. FINDINGS: Liver is normal in size with elevated echotexture compatible with fatty change or other diffuse hepatocellular process. No focal hepatic lesion. There is a 3 mm polyp in the gallbladder. Gallbladder wall is normal thickness. Common bile duct is normal caliber-4 mm. The pancreas, aorta and spleen are normal in size and echotexture. Kidneys are mildly atrophic: the right is 8 x 5 cm and the left is 9 x 3 cm. Both kidneys are echogenic. There are recess in the left kidney ranging up to 1.4 cm the mid region. No free fluid IMPRESSION: 1. Hyperechoic liver compatible with fatty change or other diffuse hepatocellular process. 2. 5 mm polyp in the gallbladder. These are very commonly seen in nearly always insignificant. 3. Mild bilateral renal atrophy with elevated echotexture compatible with medical renal disease/advanced age Interpreted and Authenticated by: Humberto Toney 06/21/20
[2020-06-21] MEDS ORDERED: MELATONIN 3 MG TABLET PO PRN (21:00)
[2020-06-21] MEDS: TAMSULOSIN 0.4 MG CAPSULE PO SCH (21:27)
[2020-06-21] MEDS: SENNOSIDES/DOCUSATE SODIUM 1 TAB TABLET PO SCH (21:27)
[2020-06-21] MEDS: ATORVASTATIN 20 MG TABLET PO SCH (21:28)
[2020-06-22] MEDS: hydrALAZINE 20 MG/ML VIAL IV PRN ×2 (03:39→23:57)
[2020-06-22] MEDS: ACETAMINOPHEN 325 MG TABLET PO PRN ×3 (04:35→16:55)
[2020-06-22 05:54] LABS: Basophils # (Auto) 0.04 K/mcL (0.00-0.20); Basophils % (Auto) 0.5 % (0.0-2.0); Eosinophils # (Auto) 0.23 K/mcL (0.00-0.70); Eosinophils % (Auto) 3.1 % (0.0-7.0); Hematocrit 34.7 % (41.0-55.0); Hemoglobin 11.5 g/dL (13.5-16.5); Lymphocytes % (Auto) 18.7 % (15.0-49.0); Mean Cell Volume 97.2 fL (80.0-100.0); Mean Corpuscular HGB Conc 33.1 g/dL (31.0-36.0); Mean Platelet Volume 9.4 fL (7.4-10.4); Monocytes # (Auto) 0.68 K/mcL (0.10-0.90); Monocytes % (Auto) 9.1 % (1.0-12.0); Neutrophils % (Auto) 68.6 % (38.0-78.0); Platelet Count 307 K/mcL (140-440); RBC 3.57 M/mcL (4.50-5.90); Red Cell Distribution Width 13.6 % (11.5-14.5); WBC 7.5 K/mcL (4.5-11.0)
[2020-06-22] MEDS: 0.9 % SODIUM CHLORIDE 10 ML SYRINGE IV SCH ×3 (05:56→21:59)
[2020-06-22 06:07] LABS: ALT/SGPT 18 U/L (<40); AST/SGOT 28 U/L (<40); Albumin 3.1 gm/dL (3.2-5.2); Albumin/Globulin Ratio 0.9 (1.0-2.3); Alkaline Phosphatase 60 U/L (39-117); Bilirubin,Direct < 0.2 mg/dL (0-0.3); Bilirubin,Total 0.3 mg/dL (0.1-1.0); Blood Urea Nitrogen 52 mg/dL (8-23); Carbon Dioxide 25 mmol/L (22-30); Chloride 107 mmol/L (96-108); Globulin 3.3 gm/dL (2.2-3.7); Glomerular Filtration Rate 14; Glucose 174 mg/dL (70-105); Lactate Dehydrogenase 241 U/L (135-225); Phosphorous 3.2 mg/dL (2.5-4.5); Triglycerides 210 mg/dL (<150); Uric Acid 6.8 mg/dL (2.5-8.0)
[2020-06-22] MEDS: MULTIVIT,THER IRON,CA,FA & MIN 1 TABLET PO SCH (07:47)
[2020-06-22] MEDS: OMEPRAZOLE 20 MG CAPSULE PO SCH (07:47)
[2020-06-22] MEDS: DOCUSATE SODIUM 100 MG CAPSULE PO SCH ×2 (07:48→07:51)
[2020-06-22] MEDS: CETIRIZINE 10 MG TABLET PO SCH (07:48)
[2020-06-22] MEDS: FINASTERIDE 5 MG TABLET PO SCH (07:48)
[2020-06-22] MEDS: GENTAMICIN CRM 0.1% TUBE 15GM TOPICAL SCH ×3 (07:48→21:09)
[2020-06-22] MEDS: ASPIRIN 81 MG TAB.CHEW PO SCH (07:48)
[2020-06-22] MEDS: HEPARIN 5,000 UNIT/ML VIAL SQ SCH ×2 (07:48→21:58)
[2020-06-22] MEDS: CLOPIDOGREL 75 MG TABLET PO SCH (07:48)
[2020-06-22] MEDS: SEVELAMER 800 MG TABLET PO SCH ×3 (07:48→16:54)
[2020-06-22] MEDS: LEVOTHYROXINE 125 MCG TABLET PO SCH (07:48)
[2020-06-22] MEDS: LOSARTAN 25 MG TABLET PO SCH (07:49)
--- NOTE | 2020-06-22 09:07 | Nephrology Progress Note ---
SUBJECTIVE Subjective Patient information: Note initiated : 06/22/20 at 9:03 am Patient: Murray Beyer 85 y/o M admitted on 06/21/20 for fall. Chief Complaint: Aphasia Pertinent ROS: Some improvement of aphasia No problems with PD overnight No fluid overload Constitutional Vitals: Vital Signs Temp Pulse Resp BP Pulse Ox 98.6 F 89 23 H 176/122 95 06/22/20 08:01 06/21/20 06:30 06/22/20 08:31 06/22/20 08:01 06/22/20 08:31 Period Temp Pulse Resp BP Sys/Suarez Pulse Ox Last 24 Hr 97.6 F-98.6 F 125-200/71-151 90-98 Intake and Output 06/21/20 06/22/20 06/22/20 21:59 05:59 13:59 Intake Total 120 240 Output Total 2 4 Balance 118 -4 240 Weight 188 lb 1.6 oz Intake & Output: Intake & Output 06/21/20 06/22/20 06/22/20 21:59 05:59 13:59 Intake Total 120 240 Output Total 2 4 Balance 118 -4 240 Weight 188 lb 1.6 oz Intake: Oral 120 240 Output: # of times incontinent of urine 2 4 Other: Meal Dinner Breakfast Percent of Meal Consumed 50% 100% Feeding Ability Total Assistance Stool Size Small Stool Color Brown Stool Consistency Soft # of times incontinent of 1 Bowels General appearance: cooperative and no acute distress Head Head exam: Present normal inspection Eye Eye exam: Present normal appearance ENT ENT exam: Present mucous membranes moist Respiratory Respiratory exam: Absent respiratory distress Cardiovascular Cardiovascular exam: Present normal rate and rhythm GI/Abdominal GI/Abdominal exam: Present soft; Absent tenderness Extremities Exam Extremities exam: Absent joint swelling and pedal edema Neurological Exam Neurological exam: Present alert Psychiatric Psychiatric exam: Present normal affect and normal mood Skin Skin exam: Present warm; Absent rash A/P Assessment and plan (1) ESRD on peritoneal dialysis: Assessment and plan: Murray Beyer is an 85-year-old male with end stage renal disease on peritoneal dialysis, 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 He presented to ED for weakness and aphasia. SBP was over 200 and started on nicardipine drip. Nephrology consultation was requested. End stage renal disease on peritoneal dialysis. Chronic anemia due to ESRD. Hypertensive urgency, resolved. Recommendations/Plan: Continue CCPD with 1.5% peritoneal dialysis solution, total volume 8,500 ml, 5 exchanges of 2,000 ml overnight, total time 8 hours, last fill 300 ml. Status: Chronic Time Spent With Patient Time: Total time spent is greater than 50% in coordination of care (as documented) at patient's floor/unit and/or counseling patient:
[2020-06-22] MEDS ORDERED: DOCUSATE SODIUM 50 MG/5 ML ORAL.SOL PO SCH (11:00)
--- NOTE | 2020-06-22 11:02 | Internal Med Progress Note ---
SUBJECTIVE Subjective Patient information: Note initiated : 06/22/20 at 10:58 am Service Date, if different from initiated Date: [] Patient: Murray Beyer 85 y/o M admitted on 06/21/20 for fall. Chief Complaint: [] Interval history: Mr. Beyer is a 85 year old M with a history of IHD, last EF 55%/PCI with stenting/recurrent CVA and ESRD on PD who presents to the ER with left-sided weakness that started roughly 6 hours prior to presentation. Patient was brought into the ER for evaluation. Patient underwent neuroimaging including head CT which was unremarkable for acute process. Following ER evaluation patient was beyond the window for in tervention/TPA. Hospitalist service was consulted due to persistent weakness and CVA symptoms, systolics over 200. In the ER patient was started on nicardipine drip. At the time of my evaluation patient is weak on the left side, demonstrate expressive aphasia. Most of the history was obtained from patient's /ER physician and review of medical records. He is unable to answer any questions. Systolics noted around 150s. Patient normally usually takes aspirin 81 mg but currently not on statin. He has been on Plavix and Brilinta in the past which was discontinued. He is also discontinued statin due to generalized weakness. Patient was initiated on statin/Plavix along with continued aspirin for severe underlying atherosclerotic disease. Further neuroimaging including MRI brain/echocardiogram ordered Patient was unable to provide answers to review of system questions. 06/22-MRI shows 8 x 3 mm left internal capsule infarct, tolerating aspirin/statin/Plavix, no overnight telemetry events. This morning able to express and communicate in short sentences. Discussed treatment plan with patient and agreeable to continue statin/Plavix for stroke treatment/prevention. MR angiogram brain today. Constitutional Vitals: Vital Signs Temp Pulse Resp BP Pulse Ox 98.6 F 89 23 H 176/122 95 06/22/20 08:01 06/21/20 06:30 06/22/20 08:31 06/22/20 08:01 06/22/20 08:31 Period Temp Pulse Resp BP Sys/Suarez Pulse Ox Last 24 Hr 97.6 F-98.6 F 16-26 125-200/71-122 90-98 Intake and Output 06/21/20 06/22/20 06/22/20 21:59 05:59 13:59 Intake Total 120 240 Output Total 2 4 2 Balance 118 -4 238 Weight 85.321 kg Alert and oriented Improving aphasia No telemetry events Minimal anxiety Intake & Output: Intake & Output 06/21/20 06/22/20 06/22/20 21:59 05:59 13:59 Intake Total 120 240 Output Total 2 4 2 Balance 118 -4 238 Weight 85.321 kg Intake: Oral 120 240 Output: # of times incontinent of urine 2 4 2 Other: Meal Dinner Breakfast Percent of Meal Consumed 50% 100% Feeding Ability Total Assistance Stool Size Small Small Stool Color Brown Brown Stool Consistency Soft Soft Formed # of times incontinent of 1 Bowels OBJ DATA Labs CBC & Chem 7: 06/24/20 05:13 06/24/20 05:12 Labs: Abnormal Lab Results 06/22/20 06/22/20 06/21/20 04:59 04:59 04:00 RBC 3.57 L Hgb 11.5 L Hct 34.7 L POC Hct Lymph # (Auto) 1.40 L ABG Methemoglobin VBG pO2 VBG O2 Saturation Carboxyhemoglobin Total Hemoglobin POC BUN BUN 52 H Creatinine 3.6 H POC Creatinine Glucose 174 H POC Glucose POC WB Ioniz Calcium Lactate Dehydrogenase 241 H Troponin T Albumin 3.1 L Albumin/Globulin Ratio 0.9 L Triglycerides 210 H Urine Protein 30 A Urine Glucose (UA) 50 A Urine Mucus Few A 06/21/20 06/21/20 06/21/20 01:45 00:45 00:45 RBC 3.37 L Hgb 10.8 L Hct 33.7 L POC Hct Lymph # (Auto) ABG Methemoglobin 0.3 L VBG pO2 50.4 H VBG O2 Saturation 81.4 H Carboxyhemoglobin 3.3 H Total Hemoglobin 10.4 L POC BUN BUN Creatinine POC Creatinine Glucose POC Glucose POC WB Ioniz Calcium Lactate Dehydrogenase Troponin T 0.03 H Albumin Albumin/Globulin Ratio Triglycerides Urine Protein Urine Glucose (UA) Urine Mucus 06/21/20 00:34 RBC Hgb Hct POC Hct 31 L Lymph # (Auto) ABG Methemoglobin VBG pO2 VBG O2 Saturation Carboxyhemoglobin Total Hemoglobin POC BUN 55 H BUN 64 H Creatinine 5.4 H* POC Creatinine 6.4 H* Glucose 122 H POC Glucose 127 H POC WB Ioniz Calcium 1.10 L Lactate Dehydrogenase Troponin T Albumin 3.1 L Albumin/Globulin Ratio Triglycerides Urine Protein Urine Glucose (UA) Urine Mucus Meds: Medications Acetaminophen (Acetaminophen 325 Mg Tablet) 650 mg PO Q4-6HP PRN; Protocol PRN Reason: Per Pain Protocol/Fever > 101 Last Admin: 06/22/20 04:35 Dose: 650 mg Documented by: Aspirin (Aspirin 81 Mg Tab.Chew) 81 mg PO DAILY [facility] Last Admin: 06/22/20 07:48 Dose: 81 mg Documented by: Atorvastatin Calcium (Atorvastatin 20 Mg Tablet) 40 mg PO HS [facility] Last Admin: 06/21/20 21:28 Dose: Not Given Documented by: Bisacodyl (Bisacodyl 10 Mg Supp.Rect) 10 mg VA Q2-3DAYS PRN PRN Reason: Constipation Last Admin: 06/21/20 21:28 Dose: 10 mg Documented by: Cetirizine HCl (Cetirizine 10 Mg Tablet) 10 mg PO DAILY [facility] Last Admin: 06/22/20 07:48 Dose: 10 mg Documented by: Clopidogrel Bisulfate (Clopidogrel 75 Mg Tablet) 75 mg PO DAILY [facility] Last Admin: 06/22/20 07:48 Dose: 75 mg Documented by: Docusate Sodium (Docusate Sodium 50 Mg/5 Ml Oral.Jacinta) 100 mg PO BIDP [facility] Finasteride (Finasteride 5 Mg Tablet) 5 mg PO QDAY [facility] Last Admin: 06/22/20 07:48 Dose: 5 mg Documented by: Gentamicin Sulfate (Gentamicin Crm 0.1% Tube 15gm) 1 dose TOPICAL TID [facility] Last Admin: 06/22/20 07:48 Dose: Not Given Documented by: Heparin Sodium (Porcine) (Heparin 5,000 Unit/Ml Vial) 5,000 unit SQ Q12 [facility] Last Admin: 06/22/20 07:48 Dose: 5,000 unit Documented by: Hydralazine HCl (Hydralazine 20 Mg/Ml Vial) 10 mg IV Q4-6HP PRN PRN Reason: Hypertension Last Admin: 06/22/20 03:39 Dose: 10 mg Documented by: Acetaminophen (Ofirmev) 650 mg in 65 mls @ 130 mls/hr IV Q6HP PRN; Protocol PRN Reason: Per Pain Protocol/Fever > 101 Magnesium Sulfate (Magnesium Sulfate) 2 gm in 50 mls @ 50 mls/hr IV UD PRN PRN Reason: MG = or < 1.7 Potassium Chloride 40 meq/ (Dextrose) 520 mls @ 130 mls/hr IV UD PRN PRN Reason: K+ = or < 3.5 Iron Carb/Multivit/Dough Braker/Folic Acid (Multivit,Ther Iron,Ca,Fa & Min 1 Tablet) 1 tab PO DAILY [facility] Last Admin: 06/22/20 07:47 Dose: 1 tab Documented by: Levothyroxine Sodium (Levothyroxine 125 Mcg Tablet) 125 mcg PO ACB [facility] Last Admin: 06/22/20 07:48 Dose: 125 mcg Documented by: Losartan Potassium (Losartan 25 Mg Tablet) 25 mg PO QDAY [facility] Last Admin: 06/22/20 07:49 Dose: 25 mg Documented by: Melatonin (Melatonin 3 Mg Tablet) 3 mg PO HSP PRN PRN Reason: Insomnia Omeprazole (Omeprazole 20 Mg Capsule) 40 mg PO ACB [facility] Last Admin: 06/22/20 07:47 Dose: 40 mg Documented by: Ondansetron HCl (Ondansetron 4 Mg Odt Tablet) 4 mg SL Q4-6HP PRN; Protocol PRN Reason: Nausea And Vomiting Ondansetron HCl (Ondansetron 4 Mg/2 Ml Vial) 4 mg IV Q4-6HP PRN; Protocol PRN Reason: Nausea And Vomiting Fluticasone Furoate [Flonase Sensimist] 27.5 Mcg/[place] Suspension 1 dose LEONARDO DA ILYP PRN PRN Reason: Allergies Polyethylene Glycol (Polyethylene Glycol 3350 17 Gm Packet) 17 gm PO DAILYP PRN PRN Reason: Constipation Senna/Docusate Sodium (Sennosides/Docusate Sodium 1 Tab Tablet) 1 tab PO HS [facility] Last Admin: 06/21/20 21:27 Dose: 1 tab Documented by: Sevelamer Carbonate (Sevelamer 800 Mg Tablet) 800 mg PO TIDCC [facility] Last Admin: 06/22/20 07:48 Dose: 800 mg Documented by: Sodium Chloride (0.9 % Sodium Chloride 10 Ml Syringe) 10 ml IV Q8 [facility] Last Admin: 06/22/20 05:56 Dose: 10 ml Documented by: Tamsulosin HCl (Tamsulosin 0.4 Mg Capsule) 0.4 mg PO QHS [facility] Last Admin: 06/21/20 21:27 Dose: 0.4 mg Documented by: ABG Interpretation ABG results: 06/21/20 01:45 ABG Methemoglobin 0.3 L VBG pH 7.42 VBG pCO2 42.8 VBG pO2 50.4 H VBG HCO3 26.8 VBG Total CO2 28.1 VBG O2 Saturation 81.4 H VBG Base Excess 2 A/P Narrative A/P Narrative: * Ischemic left internal capsule CVA. Continue dual antiplatelet/statin treatment, clinically improved since 24 hours. Continue telemetry monitoring/ permissive hypertension/aggressive management per stroke protocol. Early rehab goal, transition to SNF if possible. Restart antihypertensives in 24 hours * Ischemic heart disease status post PCI 2016. Was on Brilinta for a year and currently only on aspirin 81.(Not on statin due to patient's wish). Started on Plavix/statin in the setting of acute CVA * ESRD on PD managed by nephrology * BPH continue tamsulosin * History of hypertension , held for permissive hypertension, initiate losartan in 24 hours * Hypothyroidism continue thyroxine * Limited code Plan * Dual antiplatelet/statin * MR angiogram brain/echocardiogram * Restart antihypertensives today * Peritoneal dialysis per nephrology * Aggressive stroke rehab * Nutrition support * Discharge planning per case management Time Spent With Patient Time: Total time spent is greater than 50% in coordination of care (as documented) at patient's floor/unit and/or counseling patient: QUALITY Stroke Onset of Symptoms Date: 06/20/20 Symptom Onset Unknown: Yes VTE Deep Vein Thrombosis/Pulmonary Embolism Present on Admission: No
--- NOTE | 2020-06-22 12:51 | Magnetic Resonance Report ---
CLINICAL INFORMATION: 8 mm acute nonhemorrhagic lacunar infarct in the posterior limb of the left internal capsule on brain MRI COMPARISON: Brain MRI 06/21/2020 TECHNIQUE: 3D [id number] SPGR was used to study the cerebral vasculature. FINDINGS: The intracranial internal carotid, intracranial vertebral, right anterior cerebral, middle and posterior cerebral arteries show scattered mild/moderate stenoses less than 50%. No evidence of occlusion. 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 No evidence of embolus or thrombus. IMPRESSION: Scattered stenoses ranging up to 50% throughout the anterior middle and posterior cerebral arteries. There is no evidence of embolus or thrombus. 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
[2020-06-22] MEDS: ATORVASTATIN 20 MG TABLET PO SCH (21:10)
[2020-06-22] MEDS: TAMSULOSIN 0.4 MG CAPSULE PO SCH (21:58)
[2020-06-22] MEDS: SENNOSIDES/DOCUSATE SODIUM 1 TAB TABLET PO SCH (21:59)
[2020-06-23] MEDS: 0.9 % SODIUM CHLORIDE 10 ML SYRINGE IV SCH ×3 (05:37→20:10)
--- NOTE | 2020-06-23 06:23 | XRay Report ---
CLINICAL INFORMATION: Shortness of breath COMPARISON: 06/21/2020 FINDINGS: Heart size, mediastinum and pulmonary vessels are normal for technique. Small infiltrate is developing in the right base. Minor left basilar atelectasis noted IMPRESSION: Small right basilar infiltrate. Minor left basilar atelectasis Interpreted and Authenticated by: Humberto Toney 06/23/20
[2020-06-23 06:34] LABS: Basophils # (Auto) 0.04 K/mcL (0.00-0.20); Basophils % (Auto) 0.6 % (0.0-2.0); Eosinophils # (Auto) 0.37 K/mcL (0.00-0.70); Eosinophils % (Auto) 5.4 % (0.0-7.0); Hematocrit 34.3 % (41.0-55.0); Hemoglobin 10.7 g/dL (13.5-16.5); Lymphocytes # (Auto) 1.12 K/mcL (1.50-4.80); Lymphocytes % (Auto) 16.2 % (15.0-49.0); Mean Corpuscular HGB Conc 31.2 g/dL (31.0-36.0); Mean Platelet Volume 9.6 fL (7.4-10.4); Monocytes % (Auto) 10.1 % (1.0-12.0); Neutrophils % (Auto) 67.7 % (38.0-78.0); Platelet Count 298 K/mcL (140-440); RBC 3.43 M/mcL (4.50-5.90); Red Cell Distribution Width 13.6 % (11.5-14.5); WBC 6.9 K/mcL (4.5-11.0)
[2020-06-23 06:59] LABS: ALT/SGPT 14 U/L (<40); AST/SGOT 34 U/L (<40); Alkaline Phosphatase 57 U/L (39-117); Bilirubin,Direct < 0.2 mg/dL (0-0.3); Bilirubin,Total 0.3 mg/dL (0.1-1.0); Blood Urea Nitrogen 47 mg/dL (8-23); Calcium 8.6 mg/dL (8.6-10.4); Carbon Dioxide 28 mmol/L (22-30); Chloride 106 mmol/L (96-108); Globulin 2.9 gm/dL (2.2-3.7); Glomerular Filtration Rate 11; Glucose 173 mg/dL (70-105); Lactate Dehydrogenase 265 U/L (135-225); Phosphorous 3.2 mg/dL (2.5-4.5); Triglycerides 183 mg/dL (<150); Uric Acid 6.1 mg/dL (2.5-8.0)
[2020-06-23] MEDS: OMEPRAZOLE 20 MG CAPSULE PO SCH (07:49)
[2020-06-23] MEDS: LEVOTHYROXINE 125 MCG TABLET PO SCH (07:50)
--- NOTE | 2020-06-23 08:15 | Nephrology Progress Note ---
SUBJECTIVE Subjective Patient information: Note initiated : 06/23/20 at 8:14 am Patient: Murray Beyer 85 y/o M admitted on 06/21/20 for fall. Chief Complaint: Weakness Pertinent ROS: Sleepy No obvious fluid overload No significant urine output Constitutional Vitals: Vital Signs Temp Pulse Resp BP Pulse Ox 98.0 F 89 14 171/112 95 06/23/20 04:01 06/21/20 06:30 06/23/20 06:07 06/23/20 06:02 06/23/20 04:01 Period Temp Pulse Resp BP Sys/Suarez Pulse Ox Last 24 Hr 97.8 F-99.1 F 14-25 140-188/75-118 93-98 Intake and Output 06/22/20 06/23/20 06/23/20 21:59 05:59 13:59 Intake Total 600 255 Output Total 103 Balance 497 255 Weight 190 lb Intake & Output: Intake & Output 06/22/20 06/23/20 06/23/20 21:59 05:59 13:59 Intake Total 600 255 Output Total 103 Balance 497 255 Weight 190 lb Intake: IV 130 Oral 600 125 Output: Void Amount 100 # of times incontinent of urine 3 Other: Meal Dinner Percent of Meal Consumed 100% Stool Size Small Stool Color Brown Stool Consistency Loose # Bowel Movements 1 # of times incontinent of 1 Bowels General appearance: no acute distress Head Head exam: Present normal inspection Eye Eye exam: Present normal appearance ENT ENT exam: Present mucous membranes moist Respiratory Respiratory exam: Absent respiratory distress Cardiovascular Cardiovascular exam: Present normal rate and rhythm GI/Abdominal GI/Abdominal exam: Present soft; Absent tenderness Extremities Exam Extremities exam: Absent joint swelling and pedal edema Skin Skin exam: Present warm; Absent rash A/P Assessment and plan (1) ESRD on peritoneal dialysis: Assessment and plan: Murray Beyer is an 85-year-old male with end stage renal disease on peritoneal dialysis, 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 He presented to ED for weakness and aphasia. SBP was over 200 and started on nicardipine drip. N ephrology consultation was requested. End stage renal disease on peritoneal dialysis. Chronic anemia due to ESRD. Hypertensive urgency, resolved. Work up: CXR on 06/23/20: Small right basilar infiltrate. Minor left basilar atelectasis. Abd US on 06/21/20: Hyperechoic liver compatible with fatty change or other diffuse hepatocellular process. 5 mm polyp in the gallbladder. These are very commonly seen in nearly always insignificant. Mild bilateral renal atrophy with elevated echotexture compatible with medical renal disease/advanced age. Brain MRI on 06/21/20: 8 x 3 mm acute nonhemorrhagic lacunar infarct in the posterior limb of the left internal capsule. Scattered remote lacunar infarcts in basal ganglia, deep cerebral white matter and the right pontomedullary junction. Moderate atrophy with chronic ischemic changes in the deep cerebral white matter. Recommendations/Plan: Continue CCPD with 1.5% peritoneal dialysis solution, total volume 8,500 ml, 5 exchanges of 2,000 ml overnight, total time 8 hours, last fill 300 ml. He cannot be discharged to a SNF on PD. His family is considering hospice vs in center hemodialysis. We had a meeting at bedside with hospitalist, PD nurse, carlos wood and his . Patient was asleep and could not be waken up. His lining strap closer will visit. 2 sons will be contacted by his . Status: Chronic Time Spent With Patient Time: Total time spent is greater than 50% in coordination of care (as documented) at patient's floor/unit and/or counseling patient:
[2020-06-23] MEDS: METOPROLOL TARTRATE 25 MG TABLET PO SCH ×2 (08:29→20:09)
[2020-06-23] MEDS: ASPIRIN 81 MG TAB.CHEW PO SCH (08:29)
[2020-06-23] MEDS: LOSARTAN 25 MG TABLET PO SCH (08:29)
[2020-06-23] MEDS: FINASTERIDE 5 MG TABLET PO SCH (08:29)
[2020-06-23] MEDS: CLOPIDOGREL 75 MG TABLET PO SCH (08:29)
[2020-06-23] MEDS: CETIRIZINE 10 MG TABLET PO SCH (08:29)
[2020-06-23] MEDS: HEPARIN 5,000 UNIT/ML VIAL SQ SCH ×2 (08:30→20:09)
[2020-06-23] MEDS: SEVELAMER 800 MG TABLET PO SCH ×3 (08:30→17:21)
[2020-06-23] MEDS: MULTIVIT,THER IRON,CA,FA & MIN 1 TABLET PO SCH (08:30)
[2020-06-23] MEDS: GENTAMICIN CRM 0.1% TUBE 15GM TOPICAL SCH ×3 (11:54→20:04)
--- NOTE | 2020-06-23 13:38 | Internal Med Progress Note ---
SUBJECTIVE Subjective Patient information: Note initiated : 06/23/20 at 1:33 pm Service Date, if different from initiated Date: [] Patient: Murray Beyer 85 y/o M admitted on 06/21/20 for fall. Chief Complaint: [] Interval history: Mr. Beyer is a 85 year old M with a history of IHD, last EF 55%/PCI with stenting/recurrent CVA and ESRD on PD who presents to the ER with left-sided weakness that started roughly 6 hours prior to presentation. Patient was brought into the ER for evaluation. Patient underwent neuroimaging including head CT which was unremarkable for acute process. Following ER evaluation patient was beyond the window for int ervention/TPA. Hospitalist service was consulted due to persistent weakness and CVA symptoms, systolics over 200. In the ER patient was started on nicardipine drip. At the time of my evaluation patient is weak on the left side, demonstrate expressive aphasia. Most of the history was obtained from patient's /ER physician and review of medical records. He is unable to answer any questions. Systolics noted around 150s. Patient normally usually takes aspirin 81 mg but currently not on statin. He has been on Plavix and Brilinta in the past which was discontinued. He is also discontinued statin due to generalized weakness. Patient was initiated on statin/Plavix along with continued aspirin for severe underlying atherosclerotic disease. Further neuroimaging including MRI brain/echocardiogram ordered Patient was unable to provide answers to review of system questions. 06/22-MRI shows 8 x 3 mm left internal capsule infarct, tolerating aspirin/statin/Plavix, no overnight telemetry events. This morning able to express and communicate in short sentences. Discussed treatment plan with patient and agreeable to continue statin/Plavix for stroke treatment/prevention. MR angiogram brain today. 06/23-patient able to express today. Improving neurological deficits. Wishes statin to be discontinued. Currently on dual antiplatelet. Extended conference today with patient, , case management and the presence of Dr. Maria with [facility] administrator. Family considering transition to home hospice. Family will continue to contemplate goals of care and will let us know of her decision. All options were clearly laid out by case management including transition to facility Constitutional Vitals: Vital Signs Temp Pulse Resp BP Pulse Ox 99.0 F 89 21 140/88 97 06/23/20 12:01 06/21/20 06:30 06/23/20 12:01 06/23/20 12:01 06/23/20 12:01 Period Temp Pulse Resp BP Sys/Suarez Pulse Ox Last 24 Hr 97.8 F-99.0 F 03-05 138-188/88-118 93-98 Intake and Output 06/22/20 06/23/20 06/23/20 21:59 05:59 13:59 Intake Total 600 255 400 Output Total 103 Balance 497 255 400 Weight 86.183 kg Respond to commands Nonlabored breathing No telemetry events Minimal anxiety Intake & Output: Intake & Output 06/22/20 06/23/20 06/23/20 21:59 05:59 13:59 Intake Total 600 255 400 Output Total 103 Balance 497 255 400 Weight 86.183 kg Intake: IV 130 Oral 600 125 400 Output: Void Amount 100 # of times incontinent of urine 3 Other: Meal Dinner Breakfast Percent of Meal Consumed 100% 100% Feeding Ability Needs Supervision Urine Appearance Clear Urine Color Pale Stool Size Small Stool Color Brown Stool Consistency Loose # Bowel Movements 1 # of times incontinent of 1 Bowels OBJ DATA Labs CBC & Chem 7: 06/23/20 04:45 06/23/20 04:45 Labs: Abnormal Lab Results 06/23/20 06/23/20 06/22/20 04:45 04:45 04:59 RBC 3.43 L Hgb 10.7 L Hct 34.3 L POC Hct Lymph # (Auto) 1.12 L ABG Methemoglobin VBG pO2 VBG O2 Saturation Carboxyhemoglobin Total Hemoglobin Anion Gap 6.0 L POC BUN BUN 47 H 52 H Creatinine 4.6 H 3.6 H POC Creatinine Glucose 173 H 174 H POC Glucose POC WB Ioniz Calcium Lactate Dehydrogenase 265 H 241 H Troponin T Albumin 3.0 L 3.1 L Albumin/Globulin Ratio 0.9 L Triglycerides 183 H 210 H Urine Protein Urine Glucose (UA) Urine Mucus 06/22/20 06/21/20 06/21/20 04:59 04:00 01:45 RBC 3.57 L Hgb 11.5 L Hct 34.7 L POC Hct Lymph # (Auto) 1.40 L ABG Methemoglobin 0.3 L VBG pO2 50.4 H VBG O2 Saturation 81.4 H Carboxyhemoglobin 3.3 H Total Hemoglobin 10.4 L Anion Gap POC BUN BUN Creatinine POC Creatinine Glucose POC Glucose POC WB Ioniz Calcium Lactate Dehydrogenase Troponin T Albumin Albumin/Globulin Ratio Triglycerides Urine Protein 30 A Urine Glucose (UA) 50 A Urine Mucus Few A 06/21/20 06/21/20 06/21/20 00:45 00:45 00:34 RBC 3.37 L Hgb 10.8 L Hct 33.7 L POC Hct 31 L Lymph # (Auto) ABG Methemoglobin VBG pO2 VBG O2 Saturation Carboxyhemoglobin Total Hemoglobin Anion Gap POC BUN 55 H BUN 64 H Creatinine 5.4 H* POC Creatinine 6.4 H* Glucose 122 H POC Glucose 127 H POC WB Ioniz Calcium 1.10 L Lactate Dehydrogenase Troponin T 0.03 H Albumin 3.1 L Albumin/Globulin Ratio Triglycerides Urine Protein Urine Glucose (UA) Urine Mucus Meds: Medications Acetaminophen (Acetaminophen 325 Mg Tablet) 650 mg PO Q4-6HP PRN; Protocol PRN Reason: Per Pain Protocol/Fever > 101 Last Admin: 06/22/20 16:55 Dose: 650 mg Documented by: Aspirin (Aspirin 81 Mg Tab.Chew) 81 mg PO DAILY [facility] Last Admin: 06/23/20 08:29 Dose: 81 mg Documented by: Bisacodyl (Bisacodyl 10 Mg Supp.Rect) 10 mg TN Q2-3DAYS PRN PRN Reason: Constipation Last Admin: 06/21/20 21:28 Dose: 10 mg Documented by: Cetirizine HCl (Cetirizine 10 Mg Tablet) 10 mg PO DAILY [facility] Last Admin: 06/23/20 08:29 Dose: 10 mg Documented by: Clopidogrel Bisulfate (Clopidogrel 75 Mg Tablet) 75 mg PO DAILY [facility] Last Admin: 06/23/20 08:29 Dose: 75 mg Documented by: Docusate Sodium (Docusate Sodium 50 Mg/5 Ml Oral.Jacinta) 100 mg PO BIDP [facility] Last Admin: 06/22/20 21:58 Dose: 100 mg Documented by: Finasteride (Finasteride 5 Mg Tablet) 5 mg PO QDAY [facility] Last Admin: 06/23/20 08:29 Dose: 5 mg Documented by: Gentamicin Sulfate (Gentamicin Crm 0.1% Tube 15gm) 1 dose TOPICAL TID [facility] Last Admin: 06/23/20 11:54 Dose: Not Given Documented by: Heparin Sodium (Porcine) (Heparin 5,000 Unit/Ml Vial) 5,000 unit SQ Q12 [facility] Last Admin: 06/23/20 08:30 Dose: 5,000 unit Documented by: Hydralazine HCl (Hydralazine 20 Mg/Ml Vial) 10 mg IV Q4-6HP PRN PRN Reason: Hypertension Last Admin: 06/22/20 23:57 Dose: 10 mg Documented by: Acetaminophen (Ofirmev) 650 mg in 65 mls @ 130 mls/hr IV Q6HP PRN; Protocol PRN Reason: Per Pain Protocol/Fever > 101 Last Infusion: 06/22/20 23:31 Dose: Infused Documented by: Magnesium Sulfate (Magnesium Sulfate) 2 gm in 50 mls @ 50 mls/hr IV UD PRN PRN Reason: MG = or < 1.7 Potassium Chloride 40 meq/ (Dextrose) 520 mls @ 130 mls/hr IV UD PRN PRN Reason: K+ = or < 3.5 Iron Carb/Multivit/[place]/Folic Acid (Multivit,Ther Iron,Ca,Fa & Min 1 Tablet) 1 tab PO DAILY [facility] Last Admin: 06/23/20 08:30 Dose: 1 tab Documented by: Levothyroxine Sodium (Levothyroxine 125 Mcg Tablet) 125 mcg PO ACB [facility] Last Admin: 06/23/20 07:50 Dose: 125 mcg Documented by: Losartan Potassium (Losartan 25 Mg Tablet) 25 mg PO QDAY [facility] Last Admin: 06/23/20 08:29 Dose: 25 mg Documented by: Melatonin (Melatonin 3 Mg Tablet) 3 mg PO HSP PRN PRN Reason: Insomnia Metoprolol Tartrate (Metoprolol Tartrate 25 Mg Tablet) 12.5 mg PO BID [facility] Last Admin: 06/23/20 08:29 Dose: 12.5 mg Documented by: Omeprazole (Omeprazole 20 Mg Capsule) 40 mg PO ACB [facility] Last Admin: 06/23/20 07:49 Dose: 40 mg Documented by: Ondansetron HCl (Ondansetron 4 Mg Odt Tablet) 4 mg SL Q4-6HP PRN; Protocol PRN Reason: Nausea And Vomiting Ondansetron HCl (Ondansetron 4 Mg/2 Ml Vial) 4 mg IV Q4-6HP PRN; Protocol PRN Reason: Nausea And Vomiting Fluticasone Furoate [Flonase Sensimist] 27.5 Mcg/[place] Suspension 1 dose LEONARDO DAILYP PRN PRN Reason: Allergies Polyethylene Glycol (Polyethylene Glycol 3350 17 Gm Packet) 17 gm PO DAILYP PRN PRN Reason: Constipation Senna/Docusate Sodium (Sennosides/Docusate Sodium 1 Tab Tablet) 1 tab PO HS [facility] Last Admin: 06/22/20 21:59 Dose: 1 tab Documented by: Sevelamer Carbonate (Sevelamer 800 Mg Tablet) 800 mg PO TIDCC [facility] Last Admin: 06/23/20 12:30 Dose: 800 mg Documented by: Sodium Chloride (0.9 % Sodium Chloride 10 Ml Syringe) 10 ml IV Q8 [facility] Last Admin: 06/23/20 05:37 Dose: 10 ml Documented by: Tamsulosin HCl (Tamsulosin 0.4 Mg Capsule) 0.4 mg PO QHS [facility] Last Admin: 06/22/20 21:58 Dose: 0.4 mg Documented by: ABG Interpretation ABG results: 06/21/20 01:45 ABG Methemoglobin 0.3 L VBG pH 7.42 VBG pCO2 42.8 VBG pO2 50.4 H VBG HCO3 26.8 VBG Total CO2 28.1 VBG O2 Saturation 81.4 H VBG Base Excess 2 A/P Narrative A/P Narrative: * Ischemic left internal capsule CVA. Gradual clinical improvement noted. Continue dual antiplatelet. Ongoing stroke rehab. Patient and family refused statin. MR angiogram no evidence of vessel thrombosis, intracranial vessel stenosis noted * Ischemic heart disease status post PCI 2016. Was on Brilinta for a year and currently only on aspirin 81.(Not on statin due to patient's wish). Started on Plavix in the setting of acute CVA * ESRD on PD managed by nephrology * BPH continue tamsulosin * History of hypertension , restarted home medication, systolics improved around 150 * Hypothyroidism continue thyroxine * Limited code Plan * Continue dual antiplatelet/statin * Aggressive stroke rehab * Nutrition support * Discharge planning per case management Time Spent With Patient Time: Total time spent is greater than 50% in coordination of care (as documented) at patient's floor/unit and/or counseling patient: QUALITY Stroke Onset of Symptoms Date: 06/20/20 Symptom Onset Unknown: Yes VTE Deep Vein Thrombosis/Pulmonary Embolism Present on Admission: No
[2020-06-23] MEDS: SENNOSIDES/DOCUSATE SODIUM 1 TAB TABLET PO SCH (20:09)
[2020-06-23] MEDS: TAMSULOSIN 0.4 MG CAPSULE PO SCH (20:09)
[2020-06-24] MEDS: 0.9 % SODIUM CHLORIDE 10 ML SYRINGE IV SCH (05:22)
--- NOTE | 2020-06-24 06:26 | Nephrology Progress Note ---
SUBJECTIVE Subjective Patient information: Note initiated : 06/24/20 at 6:22 am Patient: Murray Beyer 85 y/o M admitted on 06/21/20 for fall. Chief Complaint: Weakness Pertinent ROS: Apasia improved Awake, alert and oriented Weakness No obvious fluid overload Constitutional Vitals: Vital Signs Temp Pulse Resp BP Pulse Ox 99.0 F 89 26 H 157/97 94 06/24/20 04:01 06/21/20 06:30 06/24/20 06:01 06/24/20 06:01 06/24/20 06:01 Period Temp Pulse Resp BP Sys/Suarez Pulse Ox Last 24 Hr 97.2 F-100.0 F 12-27 136-171/83-112 93-97 Intake and Output 06/23/20 06/24/20 06/24/20 21:59 05:59 13:59 Intake Total 240 Output Total 4 2 Balance 236 -2 Weight 188 lb 1 oz Intake & Output: Intake & Output 06/23/20 06/24/20 06/24/20 21:59 05:59 13:59 Intake Total 240 Output Total 4 2 Balance 236 -2 Weight 188 lb 1 oz Intake: Oral 240 Output: # of times incontinent of urine 4 2 Other: Meal Nourishment/Supplement Percent of Meal Consumed 100% Feeding Ability Total Assistance Stool Size Small Smear Stool Color Brown Brown Stool Consistency Soft Soft Formed # of times incontinent of 1 Bowels General appearance: cooperative and no acute distress Head Head exam: Present normal inspection Eye Eye exam: Present normal appearance ENT ENT exam: Present mucous membranes moist Respiratory Respiratory exam: Absent respiratory distress Cardiovascular Cardiovascular exam: Present normal rate and rhythm GI/Abdominal GI/Abdominal exam: Present soft; Absent tenderness Extremities Exam Extremities exam: Absent joint swelling and pedal edema Neurological Exam Neurological exam: Present alert and oriented X3 Psychiatric Psychiatric exam: Present normal affect and normal mood Skin Skin exam: Present warm; Absent rash A/P Assessment and plan (1) ESRD on peritoneal dialysis: Assessment and plan: Murray Beyer is an 85-year-old male with end stage renal disease on peritoneal dialysis, 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 He presented to ED for weakness and aphasia. SBP was over 200 and started on nicardipine drip. Nephrology consultation was requested. End stage renal disease on peritoneal dialysis. Chronic anemia due to ESRD. Hypertensive urgency, resolved. Work up: CXR on 06/23/20: Small right basilar infiltrate. Minor left basilar atelectasis. Abd US on 06/21/20: Hyperechoic liver compatible with fatty change or other diffuse hepatocellular process. 5 mm polyp in the gallbladder. These are very commonly seen in nearly always insignificant. Mild bilateral renal atrophy with elevated echotexture compatible with medical renal disease/advanced age. Brain MRI on 06/21/20: 8 x 3 mm acute nonhemorrhagic lacunar infarct in the posterior limb of the left internal capsule. Scattered remote lacunar infarcts in basal ganglia, deep cerebral white matter and the right pontomedullary junction. Moderate atrophy with chronic ischemic changes in the deep cerebral white matter. Recommendations/Plan: Continue CCPD with 1.5% peritoneal dialysis solution, total volume 8,500 ml, 5 exchanges of 2,000 ml overnight, total time 8 hours, last fill 300 ml. He decided to switch to in center hemodialysis which is needed for SNF placement. He will be transferred for tunneled hemodialysis catheter and set up for outpatient dialysis. Status: Chronic Time Spent With Patient Time: Total time spent is greater than 50% in coordination of care (as documented) at patient's floor/unit and/or counseling patient:
[2020-06-24 07:01] LABS: Basophils # (Auto) 0.05 K/mcL (0.00-0.20); Basophils % (Auto) 0.7 % (0.0-2.0); Eosinophils # (Auto) 0.39 K/mcL (0.00-0.70); Eosinophils % (Auto) 5.2 % (0.0-7.0); Hematocrit 30.2 % (41.0-55.0); Hemoglobin 9.8 g/dL (13.5-16.5); Lymphocytes # (Auto) 1.67 K/mcL (1.50-4.80); Lymphocytes % (Auto) 22.2 % (15.0-49.0); Mean Corpuscular HGB Conc 32.5 g/dL (31.0-36.0); Mean Platelet Volume 9.8 fL (7.4-10.4); Monocytes # (Auto) 0.91 K/mcL (0.10-0.90); Monocytes % (Auto) 12.1 % (1.0-12.0); Neutrophils % (Auto) 59.8 % (38.0-78.0); Platelet Count 287 K/mcL (140-440); RBC 3.05 M/mcL (4.50-5.90); Red Cell Distribution Width 13.6 % (11.5-14.5); WBC 7.5 K/mcL (4.5-11.0)
[2020-06-24 07:53] LABS: ALT/SGPT 17 U/L (<40); AST/SGOT 33 U/L (<40); Albumin 2.7 gm/dL (3.2-5.2); Albumin/Globulin Ratio 0.9 (1.0-2.3); Alkaline Phosphatase 59 U/L (39-117); Bilirubin,Direct < 0.2 mg/dL (0-0.3); Bilirubin,Total 0.3 mg/dL (0.1-1.0); Blood Urea Nitrogen 44 mg/dL (8-23); Calcium 8.3 mg/dL (8.6-10.4); Carbon Dioxide 28 mmol/L (22-30); Chloride 99 mmol/L (96-108); Glomerular Filtration Rate 10; Glucose 143 mg/dL (70-105); Lactate Dehydrogenase 237 U/L (135-225); Phosphorous 2.8 mg/dL (2.5-4.5); Triglycerides 174 mg/dL (<150)
[2020-06-24] MEDS: OMEPRAZOLE 20 MG CAPSULE PO SCH (08:06)
[2020-06-24] MEDS: SEVELAMER 800 MG TABLET PO SCH (08:07)
[2020-06-24] MEDS: LEVOTHYROXINE 125 MCG TABLET PO SCH (08:07)
[2020-06-24] MEDS: FINASTERIDE 5 MG TABLET PO SCH (08:17)
[2020-06-24] MEDS: METOPROLOL TARTRATE 25 MG TABLET PO SCH (08:17)
[2020-06-24] MEDS: LOSARTAN 25 MG TABLET PO SCH (08:17)
[2020-06-24] MEDS: MULTIVIT,THER IRON,CA,FA & MIN 1 TABLET PO SCH (08:17)
[2020-06-24] MEDS: CLOPIDOGREL 75 MG TABLET PO SCH (08:17)
[2020-06-24] MEDS: CETIRIZINE 10 MG TABLET PO SCH (08:17)
[2020-06-24] MEDS: ASPIRIN 81 MG TAB.CHEW PO SCH (08:17)
[2020-06-24] MEDS: HEPARIN 5,000 UNIT/ML VIAL SQ SCH (08:17)
--- NOTE | 2020-06-24 11:16 | Discharge Summary ---
Discharge Provider Provider Patient information: Note initiated : 06/24/20 at 11:11 am Service Date, if different from initiated Date: [] Patient: Murray Beyer 85 y/o M admitted on 06/21/20 for fall. Discharge diagnosis * Ischemic left internal capsule CVA 8 x 3 mm. Gradual clinical improvement noted including expressive aphasia. Continue dual antiplatelet. Managed with aggressive inpatient stroke rehab. Patient and family refused statin. MR angiogram no evidence of vessel thrombosis, 50% intracranial vessel stenosis noted. * Ischemic heart disease status post PCI 2016. Was on Brilinta for a year and currently only on aspirin 81.(Not on statin due to patient's wish). Started on Plavix in the setting of acute CVA * ESRD on PD managed by nephrology * BPH continue tamsulosin * History of hypertension , continue metoprolol/losartan * Hypothyroidism continue thyroxine Brief hospital course Mr. Beyer is a 85 year old M with a history of IHD, last EF 55%/PCI with stenting/recurrent CVA and ESRD on PD who presents to the ER with left-sided weakness that started roughly 6 hours prior to presentation. Patient was brought into the ER for evaluation. Patient underwent neuroimaging including head CT which was unremarkable for acute process. Following ER evaluation patient was beyond the window for intervention/TPA. Hospitalist service was consulted due to persistent weakness and CVA symptoms, systolics over 200. In the ER patient was started on nicardipine drip. At the time of my evaluation patient is weak on the left side, demonstrate expressive aphasia. Most of the history was obtained from patient's /ER physician and review of medical records. He is unable to answer any questions. Systolics noted around 150s. Patient normally usually takes aspirin 81 mg but currently not on statin. He has been on Plavix and Brilinta in the past which was discontinued. He is also discontinued statin due to generalized weakness. Patient was initiated on statin/Plavix along with continued aspirin for severe underlying atherosclerotic disease. Further neuroimaging including MRI brain/echocardiogram ordered Patient was unable to provide answers to review of system questions. 06/22-MRI shows 8 x 3 mm left internal capsule infarct, tolerating aspirin/statin/Plavix, no overnight telemetry events. This morning able to express and communicate in short sentences. Discussed treatment plan with patient and agreeable to continue statin/Plavix for stroke treatment/prevention. MR angiogram brain today. 06/23-patient able to express today. Improving neurological deficits. MRA brain no significant stenotic lesion or vessel thrombosis. Wishes statin to be discontinued. Currently on dual antiplatelet. Extended conference today with patient, , case management and the presence of Dr. Maria with putaway driver. Family considering transition to home hospice. Family will continue to contemplate goals of care and will let us know of her decision. All options were clearly laid out by case management including transition to facility 06/24-family after discussions with nephrology decided on initiating hemodialysis . [facility] does not have the facility or resources to place tunneled dialysis catheter and hence patient transferring to [facility] to facilitate dialysis catheter placement. Patient accepted by Dr. Man Haider hospitalist, will continue further treatment at [place] until discharge following dialysis catheter placement on initiation of hemodialysis. On the day of discharge patient is stable, able to communicate with much improved neurological deficits including expressive aphasia. Ongoing therapies. On dual antiplatelet treatment. Statin discontinued on patient's and family's refusal. Systolics around 140. Date of admission: 06/21/20 05:42 Discharge date: 06/24/20 Primary care physician: Sarmad Quintana MD Consults: 06/21/20 Consult to Physician [CONS] Stat Comment: Consulting Provider: Yamil Russell Reason For Exam: Physician to Consult 06/21/20 08:29 Consult to Physician [CONS] Routine Comment: Consulting Provider: Kylah Dhillon Reason For Exam: Physician to Consult Discharge Meds Discharge Medications Home Medications aspirin 81 mg tablet,delayed release 81 mg PO QDAY tab 06/05/18 [History Confirmed 06/21/20 Last Taken 06/20/20] fluticasone furoate 27.5 mcg/actuation nasal spray,suspension 1 spray INTRANASAL QDAY PRN ml 10/13/19 [History Confirmed 06/21/20 Last Taken 06/20/20] finasteride 5 mg tablet 5 mg PO QDAY #90 tab 12/04/19 [Rx Confirmed 06/21/20 Last Taken 06/20/20] sevelamer carbonate 800 mg tablet 800 mg PO .TID with meals #90 tab 12/11/19 [Rx Confirmed 06/21/20 Last Taken 06/20/20] levothyroxine 125 mcg tablet 125 mcg PO QDAY #90 tab 10/20/20 [Rx Confirmed 0 06/21/20 Last Taken 06/20/20] tamsulosin 0.4 mg capsule 0.4 mg PO QHS #90 cap 12/29/19 [Rx Confirmed 06/21/20 Last Taken 06/20/20] gentamicin 0.1 % topical ointment 1 applic TOPICAL TID #30 g 01/14/20 [Rx Confirmed 06/21/20 Last Taken 06/20/20] Bedside Commode See Rx Instructions .ROUTE .COMPLEX #1 device 02/12/20 [Rx Confirmed 06/21/20 Last Taken Unknown] omeprazole 40 mg capsule,delayed release 40 mg PO QDAY #30 cap 03/17/20 [Rx Confirmed 06/21/20 Last Taken 06/20/20] Power wheelchair #1 ea 06/02/20 [Rx Confirmed 06/21/20 Last Taken Unknown] losartan 25 mg tablet 25 mg PO QDAY #90 tab 06/15/20 [Rx Confirmed 06/21/20 Last Taken 06/20/20] clopidogrel 75 mg PO DAILY #60 tab 06/24/20 [Rx Last Taken Unknown] metoprolol tartrate 12.5 mg PO BID #60 tab 06/24/20 [Rx Last Taken Unknown] sennosides-docusate sodium [Stimulant Laxative Plus] 1 tab PO HS #30 tab 06/24/20 [Rx Last Taken Unknown] COURSE Hospital Course Hospital course: . Discharge diagnosis: . Time Spent with Patient Time attestation: Total time spent providing and/or coordinating discharge services: EXAM Constitutional Vitals: Temp Pulse Resp BP Pulse Ox 98.3 F 89 24 H 149/97 93 06/24/20 08:30 06/21/20 06:30 06/24/20 10:01 06/24/20 10:01 06/24/20 10:01 Discharge Data Data Completed and Pending Labs on day of discharge: Labs from last 24 hours 06/24/20 06/24/20 05:13 05:12 WBC 7.5 RBC 3.05 L Hgb 9.8 L Hct 30.2 L MCV 99.0 MCH 32.1 MCHC 32.5 RDW 13.6 Plt Count 287 MPV 9.8 Neut % (Auto) 59.8 Lymph % (Auto) 22.2 [place] % (Auto) 12.1 H Eos % (Auto) 5.2 Baso % (Auto) 0.7 Lymph # (Auto) 1.67 [place] # (Auto) 0.91 H Eos # (Auto) 0.39 Baso # (Auto) 0.05 Absolute Neutrophils 4.51 Sodium 135 Potassium 3.6 Chloride 99 Carbon Dioxide 28 Anion Gap 8.0 BUN 44 H Creatinine 5.0 H* GFR Calculation 10 Glucose 143 H Uric Acid 6.0 Calcium 8.3 L Phosphorus 2.8 Magnesium 2.0 Total Bilirubin 0.3 Direct Bilirubin < 0.2 GGT 15 AST 33 ALT 17 Alkaline Phosphatase 59 Lactate Dehydrogenase 237 H Total Protein 5.7 L Albumin 2.7 L Globulin 3.0 Albumin/Globulin Ratio 0.9 L Triglycerides 174 H Discharge Plan Patient/Caregiver Discharge Instructions Activity: increase activity as tolerated Diet: Regular Diet Activity Restrictions/Additional Instructions: Patient transferring to [facility] for tunneled dialysis catheter placement and further management as inpatient. Continue dual antiplatelet Aggressive post stroke rehab Prescriptions: New sennosides-docusate sodium [Stimulant Laxative Plus] 8.6-50 mg Tablet 1 tab PO HS Qty: 30 RF: 0 clopidogrel 75 mg Tablet 75 mg PO DAILY Qty: 60 RF: 0 metoprolol tartrate 25 mg Tablet 12.5 mg PO BID Qty: 60 RF: 0 Continued finasteride 5 mg tablet 5 mg PO QDAY Qty: 90 RF: 3 sevelamer carbonate 800 mg tablet 800 mg PO .TID with meals Qty: 90 RF: 11 levothyroxine [Synthroid] 125 mcg tablet 125 mcg PO QDAY Qty: 90 RF: 1 tamsulosin [Flomax] 0.4 mg capsule 0.4 mg PO QHS Qty: 90 RF: 1 Hold Instructions: Doctor's Order (DME) Power wheelchair See Rx Instructions .Route .MEDSUPPLY Qty: 1 RF: 0 losartan 25 mg tablet 25 mg PO QDAY Qty: 90 RF: 3 aspirin 81 mg tablet,delayed release (DR/EC) 81 mg PO QDAY RF: 0 Flonase Sensimist 27.5 mcg/actuation spray,suspension 1 spray INTRANASAL QDAY PRN (Reason: Allergies) RF: 0 gentamicin 0.1 % ointment 1 applic TOPICAL TID Qty: 30 RF: 11 Bedside Commode See Rx Instructions .ROUTE .COMPLEX Qty: 1 RF: 0 omeprazole 40 mg capsule,delayed release(DR/EC) 40 mg PO QDAY Qty: 30 RF: 3 Follow Up Plan Follow up with: Sarmad Quintana MD [Primary Care Provider] - Patient Disposition: [facility] Prognosis: Serious Rehab Potential: Fair I certify that the patient requires SNF services: Yes Overall status at discharge: patient is not back to baseline Discharge Orders: Discharge Order (Routine); Ordered 06/24/20 Ordered By: Yamil CHAVEZ VTE Deep Vein Thrombosis/Pulmonary Embolism Present on Admission: No
== END 2020-06-24 11:40 | disposition short-term general hospital (02) | DRG 64 ==
LOC: ED 22:33 → ICU 06-21 05:42
PROVIDERS: ADMIT Internal Medicine; ATTEND Internal Medicine

== ENCOUNTER 2022-04-12 13:55 | Inpatient (IN) ==
--- NOTE | 2022-04-12 15:13 | Emergency Department Note ---
HPI General Chief complaint: Wound/Laceration Stated complaint: Right foot pain Time Seen by Provider: 04/12/22 15:08 Source: patient and family Mode of arrival: wheelchair Limitations: no limitations History of Present Illness HPI Narrative: Narrative: This 86-year-old male was sent over for an evaluation of his foot by his physician (Dr Denny). Has been treated with PO antibiotics for several weeks for a diabetic medial foot ulcer over the 1st metatarsal, right foot. Patient is diabetic and lives at home with his . They deny any fever sweats chills or nausea. Patient's past medical history is also positive for CVA, hypertension, CRD, mitral and aortic regurg and CHF. Related Data Home Medications Medication Instructions Recorded Confirmed aspirin 81 mg tablet,delayed 81 mg PO QDAY 06/05/18 12/14/21 release fluticasone furoate 27.5 1 spray intranasal QDAY PRN 10/13/19 12/14/21 mcg/actuation nasal Allergies spray,suspension (Flonase Sensimist) losartan 25 mg tablet 25 mg PO QDAY PRN 12/14/21 Previous Rx's Medication Instructions Recorded Bedside Commode See Rx Instructions .Route 02/12/20 .COMPLEX ESRD on PD Deconditioning ;protein malnutrition #1 device Power wheelchair #1 ea 06/02/20 sennosides 8.6 mg-docusate sodium 1 tab PO HS #30 tabs 06/24/20 50 mg tablet (Stimulant Laxative Plus) blood-glucose meter #1 ea 07/26/20 blood sugar diagnostic (OneTouch #300 ea 07/27/20 Ultra Blue Test Strip) lancets 30 gauge (OneTouch Delica #300 ea 09/07/20 Lancets) nitroglycerin 0.4 mg sublingual 0.4 mg sublingual Q5M PRN chest 12/05/20 tablet pain #100 tabs gentamicin 0.1 % topical ointment 1 applic topical TID PD catheter 03/20/21 exit site #30 grams levothyroxine 150 mcg tablet 150 mcg PO QDAY #90 tabs 11/09/21 insulin detemir U-100 100 unit/mL 10 unit (0.1 mL) subcut QHS #15 mL 11/15/21 (3 mL) subcutaneous pen (Levemir FlexTouch U-100 Insulin) tamsulosin 0.4 mg capsule (Flomax) 0.4 mg PO QHS #90 caps 11/17/21 finasteride 5 mg tablet 5 mg PO QDAY #90 tabs 12/05/21 clopidogrel 75 mg tablet (Plavix) 75 mg PO QDAY #90 tabs 12/19/21 omeprazole 40 mg capsule,delayed 40 mg PO QDAY GERD #90 caps 01/08/22 release sevelamer carbonate 800 mg tablet 800 mg PO BID #180 tabs 02/05/22 pen needle, diabetic 32 gauge x #100 ea 03/14/22" (Comfort EZ Pen [place]) Allergies Allergy/AdvReac Type Severity Reaction Status Date / Time Fish Containing Products Allergy Severe Swelling Verified 04/12/22 14:00 of Lip/Tongue/Throat yellow dye Allergy Mild rash Verified 04/12/22 14:00 rosuvastatin [From Crestor] Allergy Unknown Unknown Verified 04/12/22 14:00 atorvastatin AdvReac Intermediate Muscle Pain Verified 04/12/22 14:00 pravastatin AdvReac Intermediate Cramping Verified 04/12/22 14:00 of the Muscles Penicillins AdvReac Mild Sensitive Verified 04/12/22 14:00 Review of Systems ROS ROS Narrative: Narrative: All systems ED: reviewed and negative except as stated. [facility] Narrative Patient History Narrative: Narrative: Medical/Surgical/Family History All Active Problems (Updated 04/12/22 @ 17:42 by Jayant Coello MD) Benign prostatic hypertrophy with lower urinary tract symptoms (LUTS) (Acute 08/31/13) CVA (cerebral vascular accident) (Acute) Cerebrovascular disease (Acute) Depression (Acute) Elevated prostate specific antigen (PSA) (Acute) Erectile dysfunction (Acute) Hyperlipidemia (Acute) Hypertension, essential (Chronic) Hypertensive renal disease (Chronic) Incomplete bladder emptying (Acute 08/31/13) Mitral and aortic valve regurgitation (Acute) Nocturia (Acute) Renal osteodystrophy (Chronic) Sleep apnea (Acute) Testicular hypofunction (Acute) Testosterone deficiency (Acute) Personal history of transient ischemic attack (TIA) and cerebral infarction without residual deficit (Acute) Hypertrophy of nasal turbinates (Acute) Urinary retention (Acute) Urinary tract infection (Acute 10/08/13) Vitamin D deficiency (Acute) History of appendectomy (Acute) History of hernia surgery (Acute) History of inguinal hernia repair, bilateral (Acute) History of tonsillectomy (Acute) Abrasion (Acute) Cellulitis and abscess (Acute) Ankle sprain (Acute) Bronchitis (Acute) Prediabetes (Acute) Chest pain (Acute) Pseudobulbar affect (Acute) 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 stage 5 chronic kidney disease (Chronic) Chronic systolic congestive heart failure due to valvular disease (Chronic) COVID-19 virus IgG antibody test result unknown (Acute) 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 (Acute) Inflammatory arthritis (Acute) Rheumatoid arthritis (Acute) Hospital discharge follow-up (Acute) Encounter for peritoneal dialysis for ESRD (Acute) Medicare annual wellness visit, initial (Acute) Annual physical exam (Acute) ESRD on peritoneal dialysis (Chronic) Special needs due to difficulty walking unassisted (Acute) Right shoulder pain (Acute) DMII (diabetes mellitus, type 2) (Acute) Status post insertion of hemodialysis catheter (Acute) GERD (gastroesophageal reflux disease) (Acute) Annual physical exam (Acute) Hypothyroidism (Acute) Ulcer of right foot (Acute) Diabetic foot ulcer (Acute) Medical History (Updated 04/12/22 @ 17:42 by Jayant Coello MD) Abrasion Ankle sprain Annual physical exam Annual physical exam 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 PD catheter placed on 12/24/2019. Training has begun. Benign prostatic hypertrophy with lower urinary tract symptoms (LUTS) (08/31/13) Bronchitis Cellulitis and abscess Cerebrovascular disease Chronic systolic congestive heart failure due to valvular disease Add isordil and hydralazine to to carvedilol, all at low doses Next visit check labs CVA (cerebral vascular accident) 207, three, left sided weakness Depression Nervousness and depression DMII (diabetes mellitus, type 2) Elevated prostate specific antigen (PSA) Erectile dysfunction ESRD on peritoneal dialysis Hospital discharge follow-up Hyperlipidemia Hypertension, essential Controlled on amlodipine 10 mg a day, carvedilol 6.25 mg twice a day Hypertensive renal disease Blood pressure acceptably well controlled on carvedilol. Hypertrophy of nasal turbinates 02/23/2014-Dr Gutierrez Incomplete bladder emptying (08/31/13) Medicare annual wellness visit, initial Mitral and aortic valve regurgitation Nocturia 2-3 times a night Personal history of transient ischemic attack (TIA) and cerebral infarction without residual deficit Right sided numbness Prediabetes Pseudobulbar affect Results of prior CVA Renal osteodystrophy Monitor calcium phosphorus PTH and alkaline phosphatase Right shoulder pain Sleep apnea uses an oral device Special needs due to difficulty walking unassisted Testicular hypofunction Testosterone deficiency Type 2 diabetes mellitus borderline. No drug therapy Urinary retention Urinary tract infection (10/08/13) Vitamin D deficiency Surgical History (Updated 08/09/20 @ 14:51 by Jack Coello MD) History of appendectomy History of hernia surgery History of inguinal hernia repair, bilateral History of tonsillectomy Family History Mother Asthma Cardiac disease Enlarged heart Family history of malignant neoplasm of breast in first degree relative Father Essential hypertension Social History Smoking Status: Never smoker Alcohol Intake Frequency: holiday/special occasion only Substance Use: does not use Exam Narrative Narrative: Narrative: General: Patient is alert but demented prescribed provides some his tory but his is the main historian. Skin: 1 inch across full-thickness ulcer (stage IV) to the first metatarsal joint with approximately half inch of surrounding erythema. No lymphangitic streaks and no pus collection. The rest of the foot has good circulation and the skin is warm. 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 Manriquez felt he had failed this trial of outpatient antibiotics. He had asked that the patient be admitted for IV antibiotics. CT scan showed cortical destruction suggestive of osteomyelitis. Patient will be admitted after discussing with the hospitalist Sepsis Sepsis Identified: No Lab Data 04/12/22 15:22 Labs: Lab Results 04/12/22 04/12/22 Range/Units 15:22 15:28 WBC 8.3 (4.5-11.0) K/mcL RBC 2.89 L (4.63-6.08) M/mcL Hgb 9.1 L (13.7-17.5) g/dL Hct 28.4 L (40.1-51.0) % POC Hct 27.0 L (41-55) MCV 98.3 (80.0-100.0) fL MCH 31.5 (26.0-34.0) pg MCHC 32.0 (31.0-36.0) g/dL RDW 14.1 (11.5-14.5) % Plt Count 353 (140-440) K/mcL MPV 9.6 (8.8-12.5) fL Immature Gran % (Auto) 0.5 (0.0-0.5) % Neut % (Auto) 67.1 (38.0-78.0) % Lymph % (Auto) 17.8 (15.5-49.0) % Stark % (Auto) 10.5 (1.0-12.0) % Eos % (Auto) 3.3 (0.0-7.0) % Baso % (Auto) 0.8 (0.0-2.0) % Lymph # (Auto) 1.47 L (1.50-4.80) K/mcL Stark # (Auto) 0.87 (0.10-0.90) K/mcL Eos # (Auto) 0.27 (0.00-0.70) K/mcL Baso # (Auto) 0.07 (0.00-0.30) K/mcL Immature Gran # 0.04 (0.00-0.05) K/mcl Absolute Neutrophils 5.54 (1.80-8.00) K/mcL POC Sodium 139 (133-145) POC Potassium 4.4 (3.3-5.1) POC Chloride 103 (96-108) POC Total CO2 26.0 (22-30) POC BUN 77 H (6-20) POC Creatinine 8.7 H* (0.6-1.2) POC Glucose 130 H (70-105) POC WB Ioniz Calcium 1.12 L (1.16-1.32) Discharge Plan Patient/Caregiver Discharge Instructions Pt seen by GLOBAL CONSUMER SECTOR VICE PRESIDENT/PA only: No Clinical Impression: Diabetic foot ulcer Activity: increase activity as tolerated Instructions: Osteomyelitis (ED), Diabetic Foot Ulcers (ED) Patient Disposition: Xfer As Inpt ([facility]) Follow up with: Sarmad Quintana MD [Primary Care Provider] - Prescriptions: No Action (DME) Power wheelchair See Rx Instructions .Route .MEDSUPPLY Qty: 1 0RF Rx Instructions: As directed (DME) blood-glucose meter Kit See Rx Instructions .ROUTE .MEDSUPPLY Qty: 1 0RF Rx Instructions: check glucose AC and HS (DME) OneTouch Ultra Blue Test Strip Strip See Rx Instructions .Route Qty: 300 5RF Rx Instructions: Use to test BG after meals and at bedtime as needed (DME) lancets [OneTouch Delica Lancets] 30 gauge misc See Rx Instructions .Route Qty: 300 5RF Rx Instructions: Use to test BG after meals and at bedtime as needed nitroglycerin 0.4 mg tablet, sublingual 0.4 mg sublingual Q5M PRN (Reason: chest pain) Qty: 100 3RF Rx Instructions: do not exceed 3 doses per episode gentamicin 0.1 % ointment 1 applic topical TID Qty: 30 11RF levothyroxine 150 mcg tablet 150 mcg PO QDAY Qty: 90 1RF Levemir FlexTouch U-100 Insuln 100 unit/mL (3 mL) insulin pen 10 unit subcut QHS Qty: 15 1RF tamsulosin [Flomax] 0.4 mg capsule 0.4 mg PO QHS Qty: 90 1RF Hold Instructions: Doctor's Order finasteride 5 mg tablet 5 mg PO QDAY Qty: 90 1RF clopidogrel [Plavix] 75 mg tablet 75 mg PO QDAY Qty: 90 1RF omeprazole 40 mg capsule,delayed release(DR/EC) 40 mg PO QDAY Qty: 90 3RF sevelamer carbonate 800 mg tablet 800 mg PO BID Qty: 180 11RF (DME) pen needle, diabetic [Comfort EZ Pen [place]] 32 gauge x 5/32" needle See Rx Instructions .Route Qty: 100 3RF Rx Instructions: Use once daily with Levemir injections aspirin 81 mg tablet,delayed release (DR/EC) 81 mg PO QDAY losartan 25 mg tablet 25 mg PO QDAY PRN Flonase Sensimist 27.5 mcg/actuation spray,suspension 1 spray INTRANASAL QDAY PRN (Reason: Allergies) Rx Instructions: into each nostril Bedside Commode See Rx Instructions .ROUTE .COMPLEX Qty: 1 0RF Rx Instructions: ESRD on PD Deconditioning protein and calorie malnutrition; fall risk; sennosides-docusate sodium [Stimulant Laxative Plus] 8.6-50 mg Tablet 1 tab PO HS Qty: 30 0RF
[2022-04-12 15:33] LABS: POC Calcium, Ionized 1.12 (1.16-1.32); POC Creatinine 8.7 (0.6-1.2); POC Potassium 4.4 (3.3-5.1)
[2022-04-12] MEDS ORDERED: KETOROLAC 30 MG/ML VIAL IV ONE (15:36)
[2022-04-12 16:21] LABS: Basophils # (Auto) 0.07 K/mcL (0.00-0.30); Basophils % (Auto) 0.8 % (0.0-2.0); Eosinophils # (Auto) 0.27 K/mcL (0.00-0.70); Eosinophils % (Auto) 3.3 % (0.0-7.0); Hematocrit 28.4 % (40.1-51.0); Hemoglobin 9.1 g/dL (13.7-17.5); Lymphocytes # (Auto) 1.47 K/mcL (1.50-4.80); Lymphocytes % (Auto) 17.8 % (15.5-49.0); Mean Cell Volume 98.3 fL (80.0-100.0); Mean Platelet Volume 9.6 fL (8.8-12.5); Monocytes # (Auto) 0.87 K/mcL (0.10-0.90); Monocytes % (Auto) 10.5 % (1.0-12.0); Neutrophils % (Auto) 67.1 % (38.0-78.0); Platelet Count 353 K/mcL (140-440); RBC 2.89 M/mcL (4.63-6.08); Red Cell Distribution Width 14.1 % (11.5-14.5); WBC 8.3 K/mcL (4.5-11.0)
--- NOTE | 2022-04-12 18:00 | Cat Scan Report ---
INDICATION: overlying wound TECHNIQUE: Sagittal, axial, coronal images of the right foot COMPARISON: None. FINDINGS: Patient apparently has a diabetic ulcer. The location of the wound is not specified and this patient's foot was apparently wrapped There is cortical destruction in the distal right first metatarsal. There is loss of cortex medially. There appears to be at least a shallow ulcer overlying this abnormality. Findings are consistent with osteomyelitis. There is loss of cortex in the proximal and lateral aspects of the first proximal phalanx. This may be another focus of osteomyelitis. No soft tissue gas bubbles. No evidence for gas gangrene. No other for focal cortical defects. Calcaneus is negative. Cortex appears intact. Trabecular pattern throughout the right foot is abnormal suggesting osteopenia or osteoporosis. 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
[2022-04-12] MEDS ORDERED: VANCOMYCIN 1,500 MG in 0.9 % SODIUM CHLORIDE 500 ML IV ONE (18:36)
[2022-04-12] MEDS ORDERED: MEROPENEM 0.5 GM in 0.9 % SODIUM CHLORIDE 50 ML IV SCH (18:45)
--- NOTE | 2022-04-12 19:19 | Internal Med History&Physical ---
HPI History of Present Illness Patient information: Note initiated : 04/12/22 at 7:16 pm Service Date, if different from initiated Date: [] Patient: Murray Beyer 86 y/o M admitted on for Right foot pain. Chief Complaint: [] History of present illness: Mr. Beyer is a 86 year old M Presents to ED from Dr. 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 Patient has been on antibiotics over the past several weeks without improvement. Patient also refers seen early March by wound care. Per the its been enlarging and turning black in the center. Patient denies fever chills chest pain shortness of breath. CT in the ER showed osteo of the distal first metatarsal and proximal phalanx. Patient started on IV antibiotics in the ED. Blood cultures obtained. Patient is a peritoneal dialysis patient and case was discussed with Dr. Dhillon as well. 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 Also history of CAD with stents. History of diabetes. Review of Systems: denies headache/fever/chills/nausea/vomiting/chest or abdominal pain/cough/dyspnea/diarrhea. Otherwise see above. PFSH PFSH All Active Problems (Updated 04/12/22 @ 17:42 by Jayant Coello MD) Benign prostatic hypertrophy with lower urinary tract symptoms (LUTS) (Acute 0 08/31/13) CVA (cerebral vascular accident) (Acute) Cerebrovascular disease (Acute) Depression (Acute) Elevated prostate specific antigen (PSA) (Acute) Erectile dysfunction (Acute) Hyperlipidemia (Acute) Hypertension, essential (Chronic) Hypertensive renal disease (Chronic) Incomplete bladder emptying (Acute 08/31/13) Mitral and aortic valve regurgitation (Acute) Nocturia (Acute) Renal osteodystrophy (Chronic) Sleep apnea (Acute) Testicular hypofunction (Acute) Testosterone deficiency (Acute) Personal history of transient ischemic attack (TIA) and cerebral infarction without residual deficit (Acute) Hypertrophy of nasal turbinates (Acute) Urinary retention (Acute) Urinary tract infection (Acute 10/08/13) Vitamin D deficiency (Acute) History of appendectomy (Acute) History of hernia surgery (Acute) History of inguinal hernia repair, bilateral (Acute) History of tonsillectomy (Acute) Abrasion (Acute) Cellulitis and abscess (Acute) Ankle sprain (Acute) Bronchitis (Acute) Prediabetes (Acute) Chest pain (Acute) Pseudobulbar affect (Acute) 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 stage 5 chronic kidney disease (Chronic) Chronic systolic congestive heart failure due to valvular disease (Chronic) COVID-19 virus IgG antibody test result unknown (Acute) 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 (Acute) Inflammatory arthritis (Acute) Rheumatoid arthritis (Acute) Hospital discharge follow-up (Acute) Encounter for peritoneal dialysis for ESRD (Acute) Medicare annual wellness visit, initial (Acute) Annual physical exam (Acute) ESRD on peritoneal dialysis (Chronic) Special needs due to difficulty walking unassisted (Acute) Right shoulder pain (Acute) DMII (diabetes mellitus, type 2) (Acute) Status post insertion of hemodialysis catheter (Acute) GERD (gastroesophageal reflux disease) (Acute) Annual physical exam (Acute) Hypothyroidism (Acute) Ulcer of right foot (Acute) Diabetic foot ulcer (Acute) Medical History (Updated 04/12/22 @ 17:42 by Jayant Coello MD) Abrasion Ankle sprain Annual physical exam Annual physical exam 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 PD catheter placed on 12/24/2019. Training has begun. Benign prostatic hypertrophy with lower urinary tract symptoms (LUTS) (08/31/13) Bronchitis Cellulitis and abscess Cerebrovascular disease Chronic systolic congestive heart failure due to valvular disease Add isordil and hydralazine to to carvedilol, all at low doses Next visit check labs CVA (cerebral vascular accident) 207, three, left sided weakness Depression Nervousness and depression DMII (diabetes mellitus, type 2) Elevated prostate specific antigen (PSA) Erectile dysfunction ESRD on peritoneal dialysis Hospital discharge follow-up Hyperlipidemia Hypertension, essential Controlled on amlodipine 10 mg a day, carvedilol 6.25 mg twice a day Hypertensive renal disease Blood pressure acceptably well controlled on carvedilol. Hypertrophy of nasal turbinates 02/23/2014-Dr Gutierrez Incomplete bladder emptying (08/31/13) Medicare annual wellness visit, initial Mitral and aortic valve regurgitation Nocturia 2-3 times a night Personal history of transient ischemic attack (TIA) and cerebral infarction without residual deficit Right sided numbness Prediabetes Pseudobulbar affect Results of prior CVA Renal osteodystrophy Monitor calcium phosphorus PTH and alkaline phosphatase Right shoulder pain Sleep apnea uses an oral device Special needs due to difficulty walking unassisted Testicular hypofunction Testosterone deficiency Type 2 diabetes mellitus borderline. No drug therapy Urinary retention Urinary tract infection (10/08/13) Vitamin D deficiency Surgical History (Updated 08/09/20 @ 14:51 by Jack Coello MD) History of appendectomy History of hernia surgery History of inguinal hernia repair, bilateral History of tonsillectomy Family History Mother Asthma Cardiac disease Enlarged heart Family history of malignant neoplasm of breast in first degree relative Father Essential hypertension Social History marital status: smoking status: Never smoker alcohol intake frequency: holiday/special occasion only substance use type: does not use MEDS/ALLERGIES Home Medications and Allergies Home Medications Medication Instructions Recorded Confirmed Type aspirin 81 mg tablet,delayed 81 mg PO QDAY 06/05/18 12/14/21 History release fluticasone furoate 27.5 1 spray intranasal QDAY PRN 10/13/19 12/14/21 History mcg/actuation nasal Allergies spray,suspension (Flonase Sensimist) Bedside Commode See Rx Instructions .Route 02/12/20 12/14/21 Rx .COMPLEX ESRD on PD Deconditioning ;protein malnutrition #1 device Power wheelchair #1 ea 06/02/20 12/14/21 Rx sennosides 8.6 mg-docusate sodium 1 tab PO HS #30 tabs 06/24/20 12/14/21 Rx 50 mg tablet (Stimulant Laxative Plus) blood-glucose meter #1 ea 07/26/20 12/14/21 Rx blood sugar diagnostic (OneTouch #300 ea 07/27/20 12/14/21 Rx Ultra Blue Test Strip) lancets 30 gauge (OneTouch Delica #300 ea 09/07/20 12/14/21 Rx Lancets) nitroglycerin 0.4 mg sublingual 0.4 mg sublingual Q5M PRN chest 12/05/20 12/14/21 Rx tablet pain #100 tabs gentamicin 0.1 % topical ointment 1 applic topical TID PD catheter 03/20/21 12/14/21 Rx exit site #30 grams levothyroxine 150 mcg tablet 150 mcg PO QDAY #90 tabs 11/09/21 12/14/21 Rx insulin detemir U-100 100 unit/mL 10 unit (0.1 mL) subcut QHS #15 mL 11/15/21 12/14/21 Rx (3 mL) subcutaneous pen (Levemir FlexTouch U-100 Insulin) tamsulosin 0.4 mg capsule (Flomax) 0.4 mg PO QHS #90 caps 11/17/21 12/14/21 Rx finasteride 5 mg tablet 5 mg PO QDAY #90 tabs 12/05/21 12/14/21 Rx losartan 25 mg tablet 25 mg PO QDAY PRN 12/14/21 History clopidogrel 75 mg tablet (Plavix) 75 mg PO QDAY #90 tabs 12/19/21 Rx omeprazole 40 mg capsule,delayed 40 mg PO QDAY GERD #90 caps 01/08/22 Rx release sevelamer carbonate 800 mg tablet 800 mg PO BID #180 tabs 02/05/22 Rx pen needle, diabetic 32 gauge x #100 ea 03/14/22 Rx 5/32" (Comfort EZ Pen [place]) Allergies Allergy/AdvReac Type Severity Reaction Status Date / Time Fish Containing Products Allergy Severe Swelling Verified 04/12/22 14:00 of Lip/Tongue/Throat yellow dye Allergy Mild rash Verified 04/12/22 14:00 rosuvastatin [From Crestor] Allergy Unknown Unknown Verified 04/12/22 14:00 atorvastatin AdvReac Intermediate Muscle Pain Verified 04/12/22 14:00 pravastatin AdvReac Intermediate Cramping Verified 04/12/22 14:00 of the Muscles Penicillins AdvReac Mild Sensitive Verified 04/12/22 14:00 EXAM Constitutional Vitals: Temp Pulse Resp BP Pulse Ox O2 Del Method 97.0 F 95 H 17 116/78 99 Room Air 04/12/22 13:59 04/12/22 19:02 04/12/22 13:59 04/12/22 17:02 04/12/22 19:02 04/12/22 13:59 Exam: General: Alert, Awake, No acute Distress Eyes/N/T: EOMI, PERRL, Head/Neck: neck supple, normocephalic atraumatic CV: RRR, No murmurs, normal s1/s2 Pulm: Clear b/l, no wheezing/rhonchi/rales Abd: soft, nontender, +BS x4, PD catheter Ext: no clubbing/cyanosis/edema Neuro: Alert, no focal deficits, moves all extremities, CN 2-12 grossly intact, Skin: warm/dry DATA Data Completed and Pending Labs: Labs from last 24 hours 04/12/22 04/12/22 04/12/22 15:28 15:22 15:22 WBC 8.3 RBC 2.89 L Hgb 9.1 L Hct 28.4 L POC Hct 27.0 L MCV 98.3 MCH 31.5 MCHC 32.0 RDW 14.1 Plt Count 353 MPV 9.6 Immature Gran % (Auto) 0.5 Neut % (Auto) 67.1 Lymph % (Auto) 17.8 Winston % (Auto) 10.5 Eos % (Auto) 3.3 Baso % (Auto) 0.8 Lymph # (Auto) 1.47 L Winston # (Auto) 0.87 Eos # (Auto) 0.27 Baso # (Auto) 0.07 Immature Gran # 0.04 Absolute Neutrophils 5.54 POC Sodium 139 POC Potassium 4.4 POC Chloride 103 POC Total CO2 26.0 POC BUN 77 H POC Creatinine 8.7 H* POC Glucose 130 H POC WB Ioniz Calcium 1.12 L Total Bilirubin Pending Direct Bilirubin Pending AST Pending ALT Pending Alkaline Phosphatase Pending Total Protein Pending Albumin Pending Globulin Pending A/P Narrative A/P Narrative: A: *Right foot/toe cellulitis and osteomyelitis: *ESRD on PD: *Anemia, chronic: *DM2: *HTN: *h/o CVA;s w/residual left hemiparesis and cognitive impairment: on asa or plavix *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 Denny following -ID Consult - -basal and SSI -Continue home antiplatelet, cont home ARB -Home medication reconciliation -PT/OT -CM for placement needs -ppx: Heparin/PPI Time Spent With Patient Time: Total time spent is greater than 50% in coordination of care (as documented) at patient's floor/unit and/or counseling patient: Initial: Total time with patient: 75 - 90 minutes
--- NOTE | 2022-04-12 19:31 | Nephrology Consult Note ---
HPI Date of Consult Consult Date: 04/12/22 Requesting physician: Jayant Coello Primary Care Provider: Sarmad Quintana MD Consult Narrative Patient Information: Note initiated : 04/12/22 at 7:24 pm Patient: Murray Beyer 86 y/o M admitted on for Right foot pain. 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 He was sent to ED from the wound care clinic for a right foot diabetic foot ulcer which failed to improve with oral antibiotics. CT scan showed cortical destruction suggestive of osteomyelitis. Chief complaint: Right foot ulcer Reason for consult: End stage renal disease on peritoneal dialysis cc:: CC: Constitutional Constitutional: Present fatigue and weakness EENT Nose, mouth and throat: Absent nasal congestion or sore throat Cardiovascular Cardiovascular: Absent chest pain or palpatations Respiratory Respiratory: Absent cough or wheezing Gastrointestinal Gastrointestinal: Absent abdominal pain, constipation, diarrhea, nausea or vomiting Integumentary Integumentary: Present wounds (right foot) Neurological Neurological: Present weakness; Absent confusion Psychiatric Psychiatric: Absent anxiety or panic attacks Hematologic/Lymphatic Hematologic/Lymphatic: Absent easy bleeding or easy bruising Allergic/Immunologic Allergic/Immunologic: Absent tongue swelling or uticaria PFSH PFSH All Active Problems (Updated 04/12/22 @ 17:42 by Jayant Coello MD) Benign prostatic hypertrophy with lower urinary tract symptoms (LUTS) (Acute 08/31/13) CVA (cerebral vascular accident) (Acute) Cerebrovascular disease (Acute) Depression (Acute) Elevated prostate specific antigen (PSA) (Acute) Erectile dysfunction (Acute) Hyperlipidemia (Acute) Hypertension, essential (Chronic) Hypertensive renal disease (Chronic) Incomplete bladder emptying (Acute 08/31/13) Mitral and aortic valve regurgitation (Acute) Nocturia (Acute) Renal osteodystrophy (Chronic) Sleep apnea (Acute) Testicular hypofunction (Acute) Testosterone deficiency (Acute) Personal history of transient ischemic attack (TIA) and cerebral infarction without residual deficit (Acute) Hypertrophy of nasal turbinates (Acute) Urinary retention (Acute) Urinary tract infection (Acute 10/08/13) Vitamin D deficiency (Acute) History of appendectomy (Acute) History of hernia surgery (Acute) History of inguinal hernia repair, bilateral (Acute) History of tonsillectomy (Acute) Abrasion (Acute) Cellulitis and abscess (Acute) Ankle sprain (Acute) Bronchitis (Acute) Prediabetes (Acute) Chest pain (Acute) Pseudobulbar affect (Acute) 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 stage 5 chronic kidney disease (Chronic) Chronic systolic congestive heart failure due to valvular disease (Chronic) COVID-19 virus IgG antibody test result unknown (Acute) 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 (Acute) Inflammatory arthritis (Acute) Rheumatoid arthritis (Acute) Hospital discharge follow-up (Acute) Encounter for peritoneal dialysis for ESRD (Acute) Medicare annual wellness visit, initial (Acute) Annual physical exam (Acute) ESRD on peritoneal dialysis (Chronic) Special needs due to difficulty walking unassisted (Acute) Right shoulder pain (Acute) DMII (diabetes mellitus, type 2) (Acute) Status post insertion of hemodialysis catheter (Acute) GERD (gastroesophageal reflux disease) (Acute) Annual physical exam (Acute) Hypothyroidism (Acute) Ulcer of right foot (Acute) Diabetic foot ulcer (Acute) Medical History (Updated 04/12/22 @ 17:42 by Jayant Coello MD) Abrasion Ankle sprain Annual physical exam Annual physical exam 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 s tage 5 chronic kidney disease Peritoneal dialysis when GFR below 10 cc/min, patient has family reasons to hold off till Jan 2020. PD catheter placed on 12/24/2019. Training has begun. Benign prostatic hypertrophy with lower urinary tract symptoms (LUTS) (08/31/13) Bronchitis Cellulitis and abscess Cerebrovascular disease Chronic systolic congestive heart failure due to valvular disease Add isordil and hydralazine to to carvedilol, all at low doses Next visit check labs CVA (cerebral vascular accident) 207, three, left sided weakness Depression Nervousness and depression DMII (diabetes mellitus, type 2) Elevated prostate specific antigen (PSA) Erectile dysfunction ESRD on peritoneal dialysis Hospital discharge follow-up Hyperlipidemia Hypertension, essential Controlled on amlodipine 10 mg a day, carvedilol 6.25 mg twice a day Hypertensive renal disease Blood pressure acceptably well controlled on carvedilol. Hypertrophy of nasal turbinates 02/23/2014-Dr Gutierrez Incomplete bladder emptying (08/31/13) Medicare annual wellness visit, initial Mitral and aortic valve regurgitation Nocturia 2-3 times a night Personal history of transient ischemic attack (TIA) and cerebral infarction without residual deficit Right sided numbness Prediabetes Pseudobulbar affect Results of prior CVA Renal osteodystrophy Monitor calcium phosphorus PTH and alkaline phosphatase Right shoulder pain Sleep apnea uses an oral device Special needs due to difficulty walking unassisted Testicular hypofunction Testosterone deficiency Type 2 diabetes mellitus borderline. No drug therapy Urinary retention Urinary tract infection (10/08/13) Vitamin D deficiency Surgical History (Updated 08/09/20 @ 14:51 by Jack Coello MD) History of appendectomy History of hernia surgery History of inguinal hernia repair, bilateral History of tonsillectomy Family History Mother Asthma Cardiac disease Enlarged heart Family history of malignant neoplasm of breast in first degree relative Father Essential hypertension Social History marital status: smoking status: Never smoker alcohol intake frequency: holiday/special occasion only substance use type: does not use MEDS/ALLERGIES Home Medications and Allergies Home Medications Medication Instructions Recorded Confirmed Type aspirin 81 mg tablet,delayed 81 mg PO QDAY 06/05/18 12/14/21 History release fluticasone furoate 27.5 1 spray intranasal QDAY PRN 10/13/19 12/14/21 History mcg/actuation nasal Allergies spray,suspension (Flonase Sensimist) Bedside Commode See Rx Instructions .Route 02/12/20 12/14/21 Rx .COMPLEX ESRD on PD Deconditioning ;protein malnutrition #1 device Power wheelchair #1 ea 06/02/20 12/14/21 Rx sennosides 8.6 mg-docusate sodium 1 tab PO HS #30 tabs 06/24/20 12/14/21 Rx 50 mg tablet (Stimulant Laxative Plus) blood-glucose meter #1 ea 07/26/20 12/14/21 Rx blood sugar diagnostic (ATRP SolutionsTouch #300 ea 07/27/20 12/14/21 Rx Ultra Blue Test Strip) lancets 30 gauge (OneTouch Delica #300 ea 09/07/20 12/14/21 Rx Lancets) nitroglycerin 0.4 mg sublingual 0.4 mg sublingual Q5M PRN chest 12/05/20 12/14/21 Rx tablet pain #100 tabs gentamicin 0.1 % topical ointment 1 applic topical TID PD catheter 03/20/21 12/14/21 Rx exit site #30 grams levothyroxine 150 mcg tablet 150 mcg PO QDAY #90 tabs 11/09/21 12/14/21 Rx insulin detemir U-100 100 unit/mL 10 unit (0.1 mL) subcut QHS #15 mL 11/15/21 12/14/21 Rx (3 mL) subcutaneous pen (Levemir FlexTouch U-100 Insulin) tamsulosin 0.4 mg capsule (Flomax) 0.4 mg PO QHS #90 caps 11/17/21 12/14/21 Rx finasteride 5 mg tablet 5 mg PO QDAY #90 tabs 12/05/21 12/14/21 Rx losartan 25 mg tablet 25 mg PO QDAY PRN 12/14/21 History clopidogrel 75 mg tablet (Plavix) 75 mg PO QDAY #90 tabs 12/19/21 Rx omeprazole 40 mg capsule,delayed 40 mg PO QDAY GERD #90 caps 01/08/22 Rx release sevelamer carbonate 800 mg tablet 800 mg PO BID #180 tabs 02/05/22 Rx pen needle, diabetic 32 gauge x #100 ea 03/14/22 Rx 5/32" (Comfort EZ Pen [place]) Allergies Allergy/AdvReac Type Severity Reaction Status Date / Time Fish Containing Products Allergy Severe Swelling Verified 04/12/22 14:00 of Lip/Tongue/Throat yellow dye Allergy Mild rash Verified 04/12/22 14:00 rosuvastatin [From Crestor] Allergy Unknown Unknown Verified 04/12/22 14:00 atorvastatin AdvReac Intermediate Muscle Pain Verified 04/12/22 14:00 pravastatin AdvReac Intermediate Cramping Verified 04/12/22 14:00 of the Muscles Penicillins AdvReac Mild Sensitive Verified 04/12/22 14:00 Physical Examination Vital Signs Vital signs: Temp Pulse Resp BP Pulse Ox O2 Del Method 97.0 F 95 H 17 116/78 99 Room Air 04/12/22 13:59 04/12/22 19:02 04/12/22 13:59 04/12/22 17:02 04/12/22 19:02 04/12/22 13:59 General Appearance General appearance: appears started age and chronically ill EENT EENT: mucous membranes moist Neck Neck: no JVD Respiratory Respiratory: clear Cardiovascular Cardiology: no edema (left leg no edema, right leg 1+ edema), regular rate and regular rhythm Gastrointestinal Gastrointestinal: no tenderness Integumentary Integumentary: ulcer (right foot) Neurologic Neurologic: no focal deficit and alert and oriented x3 Psychiatric Psychiatric: mood/affect appropriate and cooperative Results Lab Results 04/12/22 15:22 A/P Assessment and plan (1) ESRD on peritoneal dialysis: Assessment and plan: Murray Beyer is an 86-year-old male with 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 He was sent to ED from the wound care clinic for a right foot diabetic foot ulcer which failed to improve with oral antibiotics. CT scan showed cortical destruction suggestive of osteomyelitis. End stage renal disease on peritoneal dialysis. Chronic anemia due to ESRD, receiving Aranesp in [facility] clinic. Osteomyelitis of the right foot requiring IV antibiotics. No fluid overload. Recommendations/Plan: CCPD tonight with 1.5% and 2.5% peritoneal dialysis solution, total volume 71406 ml, 4 exchanges of 2,000 ml fill volume, total time 8 hours, last fill 300 ml. Status: Chronic Time Spent With Patient Time: Total time spent is greater than 50% in coordination of care (as documented) at patient's floor/unit and/or counseling patient:
[2022-04-12 19:32] LABS: ALT/SGPT 16 U/L (<40); AST/SGOT 23 U/L (<40); Albumin 2.9 gm/dL (3.2-5.2); Alkaline Phosphatase 74 U/L (39-117); Bilirubin,Direct < 0.2 mg/dL (0-0.3); Bilirubin,Total 0.2 mg/dL (0.1-1.0); Globulin 3.7 gm/dL (2.2-3.7)
[2022-04-12] MEDS ORDERED: IPRATROPIUM/ALBUTEROL 3 ML AMPUL.NEB NEB PRN (20:15)
[2022-04-12] MEDS ORDERED: POTASSIUM CHLORIDE 20 MEQ TABLET PO PRN ×2 (20:15)
[2022-04-12] MEDS ORDERED: POLYETHYLENE GLYCOL 3350 17 GM PACKET PO PRN (20:15)
[2022-04-12] MEDS ORDERED: DEXTROSE 31 GM ORAL.SUSP PO PRN (20:15)
[2022-04-12] MEDS ORDERED: POTASSIUM CHLORIDE 40 MEQ in DEXTROSE 5% IN WATER 500 ML IV PRN (20:15)
[2022-04-12] MEDS ORDERED: MAGNESIUM SULFATE 2 GM/50 ML BAG IV PRN (20:15)
[2022-04-12] MEDS ORDERED: SENNOSIDES 1 TABLET PO PRN (20:15)
[2022-04-12] MEDS ORDERED: ONDANSETRON 4 MG/2 ML VIAL IV PRN (20:15)
[2022-04-12] MEDS ORDERED: DEXTROSE 50% 50 ML VIAL IV PRN (20:15)
[2022-04-12] MEDS ORDERED: VANCOMYCIN PER PHARMACY IV ONE (20:15)
[2022-04-12] MEDS ORDERED: cefTRIAXone 2 GM VIAL ONE (21:45)
[2022-04-12] MEDS: HEPARIN 5,000 UNIT/ML VIAL SQ SCH (21:59)
[2022-04-12] MEDS: cefTRIAXone 2 GM in DEXTROSE 5% IN WATER 50 ML IV SCH (21:59)
[2022-04-12] MEDS: 0.9 % SODIUM CHLORIDE 10 ML SYRINGE IV SCH (22:00)
[2022-04-12] MEDS: DOCUSATE SODIUM 100 MG CAPSULE PO SCH (22:00)
[2022-04-12] MEDS: INSULIN LISPRO 1 UNIT/0.01 ML UNIT SQ SCH (22:01)
[2022-04-13] MEDS: 0.9 % SODIUM CHLORIDE 10 ML SYRINGE IV SCH ×3 (05:33→22:01)
[2022-04-13] MEDS ORDERED: VANCOMYCIN PER PHARMACY IV SCH (07:15)
[2022-04-13] MEDS: INSULIN LISPRO 1 UNIT/0.01 ML UNIT SQ SCH ×4 (07:44→22:01)
--- NOTE | 2022-04-13 08:07 | Internal Med Progress Note ---
SUBJECTIVE Subjective Patient information: Note initiated : 04/13/22 at 8:05 am Service Date, if different from initiated Date: [] Patient: Murray Beyer 86 y/o M admitted on 04/12/22 for Right foot pain. Chief Complaint: [] Interval history: History of present illness: Mr. Beyer is a 86 year old M Presents to ED from Dr. 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 Patient has been on antibiotics over the past several weeks without improvement. Patient also refers seen early March by wound care. Per the its been enlarging and turning black in the center. Patient denies fever chills chest pain shortness of breath. CT in the ER showed osteo of the distal first metatarsal and proximal phalanx. Patient started on IV antibiotics in the ED. Blood cultures obtained. Patient is a peritoneal dialysis patient and case was discussed with Dr. Dhillon as well. 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 Also history of CAD with stents. History of diabetes. 2/3 Hemoglobin dropped to 8.1 today. No gross bleeding. Monitor closely. Pending chemistry. Peritoneal dialysis per nephrology. Review of Systems: denies headache/fever/chills/nausea/vomiting/chest or abdominal pain/cough/dyspnea/diarrhea. Otherwise see above. Constitutional Vitals: Vital Signs Temp Pulse Resp BP Pulse Ox O2 Del Method 98.1 F 77 18 121/75 96 Room Air 04/13/22 07:37 04/13/22 07:37 04/13/22 07:37 04/13/22 07:37 04/13/22 07:37 04/13/22 07:37 Period Temp Pulse Resp BP Sys/Suarez Pulse Ox O2 Del Method O2 Flow Rate Last 24 Hr 97.0 F-98.2 F 77-103 17-24 105-137/60-79 91-99 Room Air-Room Air Intake and Output 04/12/22 04/13/22 04/13/22 19:59 03:59 11:59 Intake Total 50 500 50 Output Total 2 Balance 50 498 50 Weight 83.915 kg 82.809 kg Intake & Output: Intake & Output 04/12/22 04/13/22 04/13/22 19:59 03:59 11:59 Intake Total 50 500 50 Output Total 2 Balance 50 498 50 Weight 83.915 kg 82.809 kg Intake: IV 50 500 50 Merrem 0.5 gm In Sodium 50 Chloride 0.9% 50 ml @ 100 mls/ hr IV Q24H [facility] Rx#:[id number] Vancomycin 1,500 mg In Sodium 500 Chloride 0.9% 500 ml @ 333.3 mls/hr IV ONCE ONE Rx#: [id number] Rocephin 2 gm In Dextrose 5% in 50 Water 50 ml @ 100 mls/hr IV Q24H [facility] Rx#:[id number] Output: # of times incontinent of urine 2 Other: # Voids 2 Exam: General: Alert, Awake, No acute Distress Eyes/N/T: EOMI, Head/Neck: neck supple, CV: RRR, No murmurs, Pulm: Clear b/l, no wheezing/rhonchi/rales Abd: soft, nontender, +BS x4, PD catheter Ext: no clubbing/cyanosis/edema, foot in dressings Neuro: Alert, no focal deficits, moves all extremities, Skin: warm/dry OBJ DATA Labs 04/12/22 15:22 04/13/22 05:35 Labs: Abnormal Lab Results 04/12/22 04/12/22 04/12/22 15:28 15:22 15:22 RBC 2.89 L Hgb 9.1 L Hct 28.4 L POC Hct 27.0 L Lymph # (Auto) 1.47 L POC BUN 77 H POC Creatinine 8.7 H* POC Glucose 130 H POC WB Ioniz Calcium 1.12 L Albumin 2.9 L Meds: Medications Acetaminophen (Acetaminophen 325 Mg Tablet) 650 mg PO Q6HP PRN; Protocol PRN Reason: Per Pain Protocol/Fever > 101 Hydrocodone Bitart/Acetaminophen (Hydrocodone/Apap 5/325mg Tablet) 1 tab PO Q4HP PRN PRN Reason: PAIN LEVEL 3-6 Albuterol/Ipratropium (Ipratropium/Albuterol 3 Ml Ampul.Neb) 3 ml NEB Q4HP PRN PRN Reason: Shortness Of Breath Dextrose (Dextrose 50% 50 Ml Vial) 0 ml IV UD PRN PRN Reason: Per Sliding Scale Diagnostic Test (Pha) (Accu-Chek 1 Each Strip) 1 each FS ACHS JACKELYN Last Admin: 04/13/22 07:19 Dose: 1 each Docusate Sodium (Docusate Sodium 100 Mg Capsule) 100 mg PO BID [facility] Last Admin: 04/12/22 22:00 Dose: 100 mg Glucose (Dextrose 31 Gm Oral.Susp) 15 gm PO PRN PRN PRN Reason: Hypoglycemia Heparin Sodium (Porcine) (Heparin 5,000 Unit/Ml Vial) 5,000 unit SQ Q12 [facility] Last Admin: 04/12/22 21:59 Dose: 5,000 unit Ceftriaxone Sodium 2 gm/ (Dextrose) 50 mls @ 100 mls/hr IV Q24H [facility]; Protocol Last Infusion: 04/13/22 07:45 Dose: Infused Potassium Chloride 40 meq/ (Dextrose) 520 mls @ 130 mls/hr IV UD PRN PRN Reason: Potassium < 3 Magnesium Sulfate (Magnesium Sulfate) 2 gm in 50 mls @ 50 mls/hr IV UD PRN PRN Reason: Magnesium </= 1.6 Insulin Human Lispro (Insulin Lispro 1 Unit/0.01 Ml Unit) 0 unit SQ [facility]; Protocol Last Admin: 04/13/22 07:44 Dose: 2 units Ondansetron HCl (Ondansetron 4 Mg/2 Ml Vial) 4 mg IV Q4HP PRN PRN Reason: Nausea And Vomiting Polyethylene Glycol (Polyethylene Glycol 3350 17 Gm Packet) 17 gm PO DAILYP PRN PRN Reason: Constipation Potassium Chloride (Potassium Chloride 20 Meq Tablet) 40 meq PO UD PRN PRN Reason: Potssium is 3-3.5 Potassium Chloride (Potassium Chloride 20 Meq Tablet) 40 meq PO UD PRN PRN Reason: Potassium < 3 Senna (Sennosides 1 Tablet) 2 tab PO DAILYP PRN PRN Reason: Constipation Sodium Chloride (0.9 % Sodium Chloride 10 Ml Syringe) 10 ml IV Q8 [facility] Last Admin: 04/13/22 05:33 Dose: 10 ml Vancomycin HCl (Vancomycin Per Pharmacy) 1 order IV UD [facility]; Protocol A/P Narrative A/P Narrative: A: *Right foot/toe cellulitis/eschar and osteomyelitis: *ESRD on PD: *Anemia, chronic: *DM2: *HTN: *h/o CVA's w/residual left hemiparesis and cognitive impairment: on asa/plavix *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 Denny following -ID Consult -basal and SSI -Continue home antiplatelet, cont home ARB -PT/OT -CM for placement needs -ppx: Heparin/PPI DNR Time Spent With Patient Time: Total time spent is greater than 50% in coordination of care (as documented) at patient's floor/unit and/or counseling patient: Subsequent: Total time with patient: 50 - 65 Minutes
[2022-04-13 08:24] LABS: Basophils # (Auto) 0.04 K/mcL (0.00-0.30); Basophils % (Auto) 0.7 % (0.0-2.0); Eosinophils # (Auto) 0.33 K/mcL (0.00-0.70); Eosinophils % (Auto) 5.9 % (0.0-7.0); Hematocrit 25.4 % (40.1-51.0); Hemoglobin 8.1 g/dL (13.7-17.5); Lymphocytes # (Auto) 1.07 K/mcL (1.50-4.80); Lymphocytes % (Auto) 19.3 % (15.5-49.0); Mean Cell Volume 98.4 fL (80.0-100.0); Mean Corpuscular HGB Conc 31.9 g/dL (31.0-36.0); Mean Platelet Volume 9.6 fL (8.8-12.5); Monocytes # (Auto) 0.55 K/mcL (0.10-0.90); Monocytes % (Auto) 9.9 % (1.0-12.0); Neutrophils % (Auto) 63.3 % (38.0-78.0); Platelet Count 324 K/mcL (140-440); RBC 2.58 M/mcL (4.63-6.08); Red Cell Distribution Width 14.1 % (11.5-14.5); WBC 5.6 K/mcL (4.5-11.0)
[2022-04-13] MEDS ORDERED: cefTRIAXone 2 GM VIAL ONE (08:34)
[2022-04-13] MEDS: HEPARIN 5,000 UNIT/ML VIAL SQ SCH ×2 (08:45→22:00)
[2022-04-13] MEDS: DOCUSATE SODIUM 100 MG CAPSULE PO SCH ×2 (08:46→22:01)
[2022-04-13] MEDS: cefTRIAXone 2 GM in DEXTROSE 5% IN WATER 50 ML IV SCH (08:46)
[2022-04-13 09:03] LABS: ALT/SGPT 13 U/L (<40); AST/SGOT 20 U/L (<40); Albumin 2.4 gm/dL (3.2-5.2); Albumin/Globulin Ratio 0.7 (1.0-2.3); Alkaline Phosphatase 64 U/L (39-117); Bilirubin,Direct < 0.2 mg/dL (0-0.3); Bilirubin,Total 0.2 mg/dL (0.1-1.0); Blood Urea Nitrogen 70 mg/dL (8-23); Calcium 8.1 mg/dL (8.6-10.4); Carbon Dioxide 24 mmol/L (22-30); Chloride 101 mmol/L (96-108); Globulin 3.3 gm/dL (2.2-3.7); Glomerular Filtration Rate 7; Glucose 146 mg/dL (70-105); Lactate Dehydrogenase 199 U/L (135-225); Triglycerides 129 mg/dL (<150); Uric Acid 6.4 mg/dL (2.5-8.0)
--- NOTE | 2022-04-13 09:14 | Nephrology Progress Note ---
SUBJECTIVE Subjective Patient information: Note initiated : 04/13/22 at 9:12 am Patient: Murray Beyer 86 y/o M admitted on 04/12/22 for Right foot pain. Chief Complaint: Right foot wound Pertinent ROS: Right foot wound No edema No shortness of breath No constipation Constitutional Vitals: Vital Signs Temp Pulse Resp BP Pulse Ox O2 Del Method 98.1 F 77 18 121/75 96 Room Air 04/13/22 07:37 04/13/22 07:37 04/13/22 07:37 04/13/22 07:37 04/13/22 07:37 04/13/22 07:37 Period Temp Pulse Resp BP Sys/Suarez Pulse Ox O2 Del Method O2 Flow Rate Last 24 Hr 97.0 F-98.2 F 77-103 17-24 105-137/60-79 91-99 Room Air-Room Air Intake and Output 04/12/22 04/13/22 04/13/22 19:59 03:59 11:59 Intake Total 50 500 530 Output Total 2 Balance 50 498 530 Weight 185 lb 182 lb 9 oz Intake & Output: Intake & Output 04/12/22 04/13/22 04/13/22 19:59 03:59 11:59 Intake Total 50 500 530 Output Total 2 Balance 50 498 530 Weight 185 lb 182 lb 9 oz Intake: IV 50 500 50 Merrem 0.5 gm In Sodium 50 Chloride 0.9% 50 ml @ 100 mls/ hr IV Q24H [facility] Rx#:[id number] Vancomycin 1,500 mg In Sodium 500 Chloride 0.9% 500 ml @ 333.3 mls/hr IV ONCE ONE Rx#: [id number] Rocephin 2 gm In Dextrose 5% in 50 Water 50 ml @ 100 mls/hr IV Q24H [facility] Rx#:[id number] Oral 480 Output: # of times incontinent of urine 2 Other: Meal Breakfast Percent of Meal Consumed 100% Feeding Ability Assist with Tray Set Up # Voids 2 General appearance: cooperative and no acute distress Head Head exam: Present normal inspection Eye Eye exam: Present normal appearance ENT ENT exam: Present mucous membranes moist Respiratory Respiratory exam: Absent respiratory distress Cardiovascular Cardiovascular exam: Present normal rate and rhythm GI/Abdominal GI/Abdominal exam: Present soft; Absent tenderness Extremities Exam Extremities exam: Absent joint swelling or pedal edema Neurological Exam Neurological exam: Present alert and oriented X3 Psychiatric Psychiatric exam: Present normal affect and normal mood Skin Skin exam: Present warm; Absent rash A/P Assessment and plan (1) ESRD on peritoneal dialysis: Assessment and plan: Murray Beyer is an 86-year-old male with 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 He was sent to ED from the wound care clinic for a right foot diabetic foot ulcer which failed to i mprove with oral antibiotics. CT scan showed cortical destruction suggestive of osteomyelitis. End stage renal disease on peritoneal dialysis. Chronic anemia due to ESRD, receiving Aranesp in [facility] clinic. Osteomyelitis of the right foot requiring IV antibiotics. ID consult pending. No fluid overload. Hyperphosphatemia. Progress: CCPD on 04/12/22: 1.5% and 2.5% peritoneal dialysis solution, total volume 56963 ml, 4 exchanges of 2,000 ml fill volume, total time 8 hours, last fill 300 ml. Recommendations/Plan: CCPD will be increased tonight to 1.5% and 2.5% peritoneal dialysis solution, total volume 92157 ml, 5 exchanges of 2,000 ml fill volume, total time 10 hours, last fill 0 ml. Renvela 800 mg PO TIDCC for hyperphosphatemia. Calcium carbonate or Calcium acetate could not be ordered due to yellow dye allergy. Status: Chronic Time Spent With Patient Time: Total time spent is greater than 50% in coordination of care (as documented) at patient's floor/unit and/or counseling patient:
[2022-04-13 09:58] LABS: Vancomycin,Random 14.2 ug/mL
[2022-04-13] MEDS ORDERED: NITROGLYCERIN 0.4 MG TAB.SUBL SL PRN (11:40)
[2022-04-13] MEDS ORDERED: LOSARTAN 25 MG TABLET PO PRN (11:40)
[2022-04-13] MEDS: COLLAGENASE TOP OINT TUBE 30GM TOPICAL SCH (12:00)
[2022-04-13] MEDS: SEVELAMER 800 MG TABLET PO SCH ×3 (12:09→17:51)
--- NOTE | 2022-04-13 13:15 | General Surgery Consult Note ---
HPI Date of Consult Consult Date: 04/13/22 Requesting physician: Reynold Bhakta Primary Care Provider: Sarmad Quintana MD Consult Narrative Patient Information: Note initiated : 04/13/22 at 1:02 pm Service Date, if different from initiated Date: [] Patient: Murray Beyer 86 y/o M admitted on 04/12/22 for Right foot pain. Chief Complaint: [] cc:: Evaluation and treatment of Cellulitis of RIGHT forefoot and osteomyelitis of 1st toe MPJ. CC: Reynold Bhakta Musculoskeletal Musculoskeletal: Present other (Pain / tenderness, erythema and necrosis of skin around NPU medial RIGHT great toe / bunion. ) Integumentary Integumentary: Present as per HPI, wounds and other (Acute inflammation / cellulitis around area of osteomyelitis and open wound RIGHT medial great toe. ) PFSH PFSH All Active Problems Benign prostatic hypertrophy with lower urinary tract symptoms (LUTS) (Acute 08/31/13) CVA (cerebral vascular accident) (Acute) Cerebrovascular disease (Acute) Depression (Acute) Elevated prostate specific antigen (PSA) (Acute) Erectile dysfunction (Acute) Hyperlipidemia (Acute) Hypertension, essential (Chronic) Hypertensive renal disease (Chronic) Incomplete bladder emptying (Acute 08/31/13) Mitral and aortic valve regurgitation (Acute) Nocturia (Acute) Renal osteodystrophy (Chronic) Sleep apnea (Acute) Testicular hypofunction (Acute) Testosterone deficiency (Acute) Personal history of transient ischemic attack (TIA) and cerebral infarction without residual deficit (Acute) Hypertrophy of nasal turbinates (Acute) Urinary retention (Acute) Urinary tract infection (Acute 10/08/13) Vitamin D deficiency (Acute) History of appendectomy (Acute) History of hernia surgery (Acute) History of inguinal hernia repair, bilateral (Acute) History of tonsillectomy (Acute) Abrasion (Acute) Cellulitis and abscess (Acute) Ankle sprain (Acute) Bronchitis (Acute) Prediabetes (Acute) Chest pain (Acute) Pseudobulbar affect (Acute) 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 stage 5 chronic kidney disease (Chronic) Chronic systolic congestive heart failure due to valvular disease (Chronic) COVID-19 virus IgG antibody test result unknown (Acute) 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 (Acute) Inflammatory arthritis (Acute) Rheumatoid arthritis (Acute) Hospital discharge follow-up (Acute) Encounter for peritoneal dialysis for ESRD (Acute) Medicare annual wellness visit, initial (Acute) Annual physical exam (Acute) ESRD on peritoneal dialysis (Chronic) Special needs due to difficulty walking unassisted (Acute) Right shoulder pain (Acute) DMII (diabetes mellitus, type 2) (Acute) Status post insertion of hemodialysis catheter (Acute) GERD (gastroesophageal reflux disease) (Acute) Annual physical exam (Acute) Hypothyroidism (Acute) Ulcer of right foot (Acute) Diabetic foot ulcer (Acute) Medical History Abrasion Ankle sprain Annual physical exam Annual physical exam 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 PD catheter placed on 12/24/2019. Training has begun. Benign prostatic hypertrophy with lower urinary tract symptoms (LUTS) (08/31/13) Bronchitis Cellulitis and abscess Cerebrovascular disease Chronic systolic congestive heart failure due to valvular disease Add isordil and hydralazine to to carvedilol, all at low doses Next visit check labs CVA (cerebral vascular accident) 207, three, left sided weakness Depression Nervousness and depression DMII (diabetes mellitus, type 2) Elevated prostate specific antigen (PSA) Erectile dysfunction ESRD on peritoneal dialysis Hospital discharge follow-up Hyperlipidemia Hypertension, essential Controlled on amlodipine 10 mg a day, carvedilol 6.25 mg twice a day Hypertensive renal disease Blood pressure acceptably well controlled on carvedilol. Hypertrophy of nasal turbinates 02/23/2014-Dr Gutierrez Incomplete bladder emptying (08/31/13) Medicare annual wellness visit, initial Mitral and aortic valve regurgitation Nocturia 2-3 times a night Personal history of transient ischemic attack (TIA) and cerebral infarction without residual deficit Right sided numbness Prediabetes Pseudobulbar affect Results of prior CVA Renal osteodystrophy Monitor calcium phosphorus PTH and alkaline phosphatase Right shoulder pain Sleep apnea uses an oral device Special needs due to difficulty walking unassisted Testicular hypofunction Testosterone deficiency Type 2 diabetes mellitus borderline. No drug therapy Urinary retention Urinary tract infection (10/08/13) Vitamin D deficiency Surgical History History of appendectomy History of hernia surgery History of inguinal hernia repair, bilateral History of tonsillectomy Family History Mother Asthma Cardiac disease Enlarged heart Family history of malignant neoplasm of breast in first degree relative Father Essential hypertension Social History marital status: smoking status: Never smoker alcohol intake frequency: holiday/special occasion only substance use type: does not use MEDS/ALLERGIES Home Medications and Allergies Home Medications Medication Instructions Recorded Confirmed Type aspirin 81 mg tablet,delayed 81 mg PO QDAY 06/05/18 04/13/22 History release fluticasone furoate 27.5 1 spray intranasal QDAY PRN 10/13/19 04/13/22 History mcg/actuation nasal Allergies spray,suspension (Flonase Sensimist) Bedside Commode See Rx Instructions .Route 02/12/20 04/13/22 Rx .COMPLEX ESRD on PD Deconditioning ;protein malnutrition #1 device sennosides 8.6 mg-docusate sodium 1 tab PO HS #30 tabs 06/24/20 04/13/22 Rx 50 mg tablet (Stimulant Laxative Plus) blood-glucose meter #1 ea 07/26/20 04/13/22 Rx blood sugar diagnostic (OneTouch #300 ea 07/27/20 04/13/22 Rx Ultra Blue Test Strip) lancets 30 gauge (OneTouch Delica #300 ea 09/07/20 04/13/22 Rx Lancets) nitroglycerin 0.4 mg sublingual 0.4 mg sublingual Q5M PRN chest 12/05/20 04/13/22 Rx tablet pain #100 tabs gentamicin 0.1 % topical ointment 1 applic topical TID PD catheter 03/20/21 04/13/22 Rx exit site #30 grams levothyroxine 150 mcg tablet 150 mcg PO QDAY #90 tabs 11/09/21 04/13/22 Rx insulin detemir U-100 100 unit/mL 10 unit (0.1 mL) subcut QHS #15 mL 11/15/21 04/13/22 Rx (3 mL) subcutaneous pen (Levemir FlexTouch U-100 Insulin) finasteride 5 mg tablet 5 mg PO QDAY #90 tabs 12/05/21 04/13/22 Rx losartan 25 mg tablet 12.5 mg PO QHS PRN Hypertension 12/14/21 04/13/22 History clopidogrel 75 mg tablet (Plavix) 75 mg PO QDAY #90 tabs 12/19/21 04/13/22 Rx omeprazole 40 mg capsule,delayed 40 mg PO QDAY GERD #90 caps 01/08/22 04/13/22 Rx release sevelamer carbonate 800 mg tablet 800 mg PO BID #180 tabs 02/05/22 04/13/22 Rx pen needle, diabetic 32 gauge x #100 ea 03/14/22 04/13/22 Rx " (Comfort EZ Pen [place]) ascorbic acid (vitamin C) 1,000 mg 1,000 mg PO DAILY 04/13/22 04/13/22 History tablet cholecalciferol (vitamin D3) 50 50 mcg PO DAILY 04/13/22 04/13/22 History mcg (2,000 unit) tablet (Vitamin D3) coQ10 (ubiquinol) 100 mg capsule 100 mg PO QAM 04/13/22 04/13/22 History multivitamin with minerals-folic 2 tab PO DAILY 04/13/22 04/13/22 History acid 0.4 mg tablet tamsulosin 0.4 mg capsule (Flomax) 0.4 mg PO QDAY 04/13/22 04/13/22 History Allergies Allergy/AdvReac Type Severity Reaction Status Date / Time Fish Containing Products Allergy Severe Swelling Verified 04/12/22 14:00 of Lip/Tongue/Throat yellow dye Allergy Mild rash Verified 04/12/22 14:00 rosuvastatin [From Crestor] Allergy Unknown Unknown Verified 04/12/22 14:00 atorvastatin AdvReac Intermediate Muscle Pain Verified 04/12/22 14:00 pravastatin AdvReac Intermediate Cramping Verified 04/12/22 14:00 of the Muscles Penicillins AdvReac Mild Sensitive Verified 04/12/22 14:00 Physical Examination Vital Signs Vital signs: Temp Pulse Resp BP Pulse Ox O2 Del Method 98.0 F 77 18 128/75 96 Room Air 04/13/22 11:28 04/13/22 11:28 04/13/22 11:28 04/13/22 11:28 04/13/22 11:28 04/13/22 11:28 General physical appearance General physical exam: well developed, well nourished, moderate pain and other (Acute inflammation and infection around RIGHT medial great toe MPJ. (osteomyelitis) Cellulitis ) Eyes Eye exam: PERRL and normal ocular movement ENT ENT exam: normal pinna and no congestion Head Head exam IM: Present atraumatic and normocephalic Neck Neck exam: no masses and no venous distension Cardiovascular Cardiovascular exam IM: Present normal rate and rhythm Respiratory Respiratory exam: normal respiratory effort and clear to auscultation Abdomen Abdomen: Present soft and non tender Genitourinary Genitourinary (Male): Present other (ESRD on peritoneal dialysis.) Integumentary Integumentary: Present other (Cellulitis around open wound NPU RIGHT medial great toe MPJ.) Neurologic Neurologic: Present other (Diabetes / peripheral neuropathy both foot and lower legs. ) Musculoskeletal Musculoskeletal: Present other (NWB Right foot / WC transportation. Open wound aroud RIGHT medial great toe MPJ. ) Results Labs 04/13/22 05:35 04/13/22 05:35 Labs: Abnormal lab results 04/12/22 04/12/22 04/12/22 Range/Units 15:22 15:22 15:28 RBC 2.89 L (4.63-6.08) M/mcL Hgb 9.1 L (13.7-17.5) g/dL Hct 28.4 L (40.1-51.0) % POC Hct 27.0 L (41-55) Immature Gran % (Auto) (0.0-0.5) % Lymph # (Auto) 1.47 L (1.50-4.80) K/mcL POC BUN 77 H (6-20) BUN (8-23) mg/dL Creatinine (0.7-1.2) mg/dL POC Creatinine 8.7 H* (0.6-1.2) Glucose (70-105) mg/dL POC Glucose 130 H (70-105) Calcium (8.6-10.4) mg/dL POC WB Ioniz Calcium 1.12 L (1.16-1.32) Phosphorus (2.5-4.5) mg/dL Total Protein (5.9-8.4) gm/dL Albumin 2.9 L (3.2-5.2) gm/dL Albumin/Globulin Ratio (1.0-2.3) 04/13/22 04/13/22 Range/Units 05:35 05:35 RBC 2.58 L (4.63-6.08) M/mcL Hgb 8.1 L (13.7-17.5) g/dL Hct 25.4 L (40.1-51.0) % POC Hct (41-55) Immature Gran % (Auto) 0.9 H (0.0-0.5) % Lymph # (Auto) 1.07 L (1.50-4.80) K/mcL POC BUN (6-20) BUN 70 H (8-23) mg/dL Creatinine 6.7 H* (0.7-1.2) mg/dL POC Creatinine (0.6-1.2) Glucose 146 H (70-105) mg/dL POC Glucose (70-105) Calcium 8.1 L (8.6-10.4) mg/dL POC WB Ioniz Calcium (1.16-1.32) Phosphorus 6.0 H* (2.5-4.5) mg/dL Total Protein 5.7 L (5.9-8.4) gm/dL Albumin 2.4 L (3.2-5.2) gm/dL Albumin/Globulin Ratio 0.7 L (1.0-2.3) Diabetes panel 04/12/22 04/13/22 Range/Units 15:22 05:35 Sodium 139 (133-145) mmol/L Potassium 4.0 (3.3-5.1) mmol/L Chloride 101 (96-108) mmol/L Carbon Dioxide 24 (22-30) mmol/L BUN 70 H (8-23) mg/dL Creatinine 6.7 H* (0.7-1.2) mg/dL Glucose 146 H (70-105) mg/dL Calcium 8.1 L (8.6-10.4) mg/dL AST 23 20 (<40) U/L ALT 16 13 (<40) U/L Alkaline Phosphatase 74 64 (39-117) U/L Total Protein 6.6 5.7 L (5.9-8.4) gm/dL Albumin 2.9 L 2.4 L (3.2-5.2) gm/dL Triglycerides 129 (<150) mg/dL Calcium panel 04/12/22 04/13/22 Range/Units 15:22 05:35 Calcium 8.1 L (8.6-10.4) mg/dL Phosphorus 6.0 H* (2.5-4.5) mg/dL Albumin 2.9 L 2.4 L (3.2-5.2) gm/dL Pituitary panel 04/13/22 Range/Units 05:35 Sodium 139 (133-145) mmol/L Potassium 4.0 (3.3-5.1) mmol/L Chloride 101 (96-108) mmol/L Carbon Dioxide 24 (22-30) mmol/L BUN 70 H (8-23) mg/dL Creatinine 6.7 H* (0.7-1.2) mg/dL Glucose 146 H (70-105) mg/dL Calcium 8.1 L (8.6-10.4) mg/dL Adrenal panel 04/12/22 04/13/22 Range/Units 15:22 05:35 Sodium 139 (133-145) mmol/L Potassium 4.0 (3.3-5.1) mmol/L Chloride 101 (96-108) mmol/L Carbon Dioxide 24 (22-30) mmol/L BUN 70 H (8-23) mg/dL Creatinine 6.7 H* (0.7-1.2) mg/dL Glucose 146 H (70-105) mg/dL Calcium 8.1 L (8.6-10.4) mg/dL Total Bilirubin 0.2 0.2 (0.1-1.0) mg/dL AST 23 20 (<40) U/L ALT 16 13 (<40) U/L Alkaline Phosphatase 74 64 (39-117) U/L Total Protein 6.6 5.7 L (5.9-8.4) gm/dL Albumin 2.9 L 2.4 L (3.2-5.2) gm/dL All other labs normal. A/P Narrative A/P Narrative: Assessment; Acute osteomyelitis of RIGHT forefoot / medial great toe MPJ. Plan of Treatment: Plan: Local wound care, IV antibiotics / Offloading. Time Spent With Patient Time: Total time spent is greater than 50% in coordination of care (as documented) at patient's floor/unit and/or counseling patient: Subsequent: Total time with patient: 35 - 49 minutes
[2022-04-13] MEDS: GENTAMICIN CRM 0.1% TUBE 15GM TOPICAL SCH ×2 (17:50→21:58)
[2022-04-13] MEDS: INSULIN GLARGINE, HUMAN 1 UNIT/0.01 ML SQ SCH (22:00)
[2022-04-13] MEDS: SENNOSIDES/DOCUSATE SODIUM 1 TAB TABLET PO SCH (22:01)
[2022-04-14] MEDS: HYDROcodone/APAP 5/325MG TABLET PO PRN (05:47)
[2022-04-14] MEDS: 0.9 % SODIUM CHLORIDE 10 ML SYRINGE IV SCH ×3 (05:47→21:02)
[2022-04-14] MEDS: GENTAMICIN CRM 0.1% TUBE 15GM TOPICAL SCH ×4 (05:52→20:05)
[2022-04-14 06:27] LABS: Basophils # (Auto) 0.04 K/mcL (0.00-0.30); Basophils % (Auto) 0.6 % (0.0-2.0); Eosinophils # (Auto) 0.31 K/mcL (0.00-0.70); Eosinophils % (Auto) 4.5 % (0.0-7.0); Hematocrit 28.6 % (40.1-51.0); Hemoglobin 9.4 g/dL (13.7-17.5); Lymphocytes # (Auto) 1.41 K/mcL (1.50-4.80); Lymphocytes % (Auto) 20.5 % (15.5-49.0); Mean Cell Volume 96.6 fL (80.0-100.0); Mean Corpuscular HGB Conc 32.9 g/dL (31.0-36.0); Mean Platelet Volume 9.4 fL (8.8-12.5); Monocytes # (Auto) 0.61 K/mcL (0.10-0.90); Monocytes % (Auto) 8.9 % (1.0-12.0); Neutrophils % (Auto) 64.9 % (38.0-78.0); Platelet Count 387 K/mcL (140-440); RBC 2.96 M/mcL (4.63-6.08); Red Cell Distribution Width 13.8 % (11.5-14.5); WBC 6.9 K/mcL (4.5-11.0)
[2022-04-14 07:19] LABS: ALT/SGPT 15 U/L (<40); AST/SGOT 22 U/L (<40); Albumin 2.5 gm/dL (3.2-5.2); Albumin/Globulin Ratio 0.7 (1.0-2.3); Alkaline Phosphatase 78 U/L (39-117); Bilirubin,Direct < 0.2 mg/dL (0-0.3); Bilirubin,Total 0.2 mg/dL (0.1-1.0); Blood Urea Nitrogen 67 mg/dL (8-23); Calcium 8.3 mg/dL (8.6-10.4); Carbon Dioxide 25 mmol/L (22-30); Chloride 100 mmol/L (96-108); Globulin 3.7 gm/dL (2.2-3.7); Glomerular Filtration Rate 7; Glucose 141 mg/dL (70-105); Lactate Dehydrogenase 237 U/L (135-225); Phosphorous 5.9 mg/dL (2.5-4.5); Triglycerides 161 mg/dL (<150); Uric Acid 6.8 mg/dL (2.5-8.0)
[2022-04-14] MEDS: LEVOTHYROXINE 150 MCG TABLET PO SCH (07:33)
[2022-04-14] MEDS: OMEPRAZOLE 20 MG CAPSULE PO SCH (07:33)
--- NOTE | 2022-04-14 07:39 | Nephrology Progress Note ---
SUBJECTIVE Subjective Patient information: Note initiated : 04/14/22 at 7:34 am Patient: Murray Beyer 86 y/o M admitted on 04/12/22 for Right foot pain. Chief Complaint: Right foot wound Pertinent ROS: Right foot wound No edema No shortness of breath Constitutional Vitals: Vital Signs Temp Pulse Resp BP Pulse Ox O2 Del Method 98.0 F 84 17 152/85 94 Room Air 04/13/22 23:22 04/14/22 04:56 04/14/22 04:56 04/14/22 05:01 04/14/22 04:56 04/14/22 04:56 Period Temp Pulse Resp BP Sys/Suarez Pulse Ox O2 Del Method O2 Flow Rate Last 24 Hr 97.6 F-98.1 F 77-84 16-18 121-166/75-94 94-96 Room Air-Room Air Intake and Output 04/13/22 04/14/22 04/14/22 19:59 03:59 11:59 Intake Total 1180 400 Output Total 4 1 Balance 1176 399 Weight 185 lb 3.2 oz Intake & Output: Intake & Output 04/13/22 04/14/22 04/14/22 19:59 03:59 11:59 Intake Total 1180 400 Output Total 4 1 Balance 1176 399 Weight 185 lb 3.2 oz Intake: Oral 1180 400 Output: # of times incontinent of urine 4 1 Other: Meal Dinner Percent of Meal Consumed 100% Feeding Ability Assist with Tray Set Up Urine Appearance Clear Clear Urine Color Yellow Yellow Urine Odor Normal Normal Stool Size Large Moderate Stool Color Brown Brown Stool Consistency Soft Formed # of times incontinent of 1 Bowels General appearance: cooperative and no acute distress Head Head exam: Present normal inspection Eye Eye exam: Present normal appearance ENT ENT exam: Present mucous membranes moist Respiratory Respiratory exam: Absent respiratory distress Cardiovascular Cardiovascular exam: Present normal rate and rhythm GI/Abdominal GI/Abdominal exam: Present soft; Absent tenderness Extremities Exam Extremities exam: Absent joint swelling or pedal edema Neurological Exam Neurological exam: Present alert and oriented X3 Psychiatric Psychiatric exam: Present normal affect and normal mood Skin Skin exam: Present warm; Absent rash A/P Assessment and plan (1) ESRD on peritoneal dialysis: Assessment and plan: Murray Beyer is an 86-year-old male with 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 He was sent to ED from the wound care clinic for a right foot diabetic foot ulcer which failed to improve with oral antibiotics. CT scan showed cortical destruction suggestive of osteomyelitis. End stage renal disease on peritoneal dialysis. Chronic anemia due to ESRD, receiving Aranesp in [facility] clinic. Osteomyelitis of the right foot requiring IV antibiotics. No fluid overload. Hyperphosphatemia. Progress: [facility] on 04/12/22: 1.5% and 2.5% peritoneal dialysis solution, total volume 11573 ml, 4 exchanges of 2,000 ml fill volume, total time 8 hours, last fill 300 ml. [facility] on 04/13/22: 1.5% and 2.5% peritoneal dialysis solution, total volume 91099 ml, 5 exchanges of 2,000 ml fill volume, total time 10 hours, last fill 300 ml. Recommendations/Plan: [facility] on 04/14/22: 1.5% and 2.5% peritoneal dialysis solution, total volume 28478 ml, 5 exchanges of 2,000 ml fill volume, total time 10 hours, last fill 300 ml. Renvela 800 mg PO TIDCC prescribed for hyperphosphatemia on 04/13/22. Calcium carbonate or Calcium acetate could not be ordered due to yellow dye allergy. Discharge: If patient discharges to SNF he will need to transition to in center hemodialysis. It will require outpatient tunneled hemodialysis catheter placement at [facility]. This may be scheduled on the day of discharge before admission to SNF facility. Status: Chronic Narrative Plan of Treatment: Plan: Local wound care, IV antibiotics / Offloading. Time Spent With Patient Time: Total time spent is greater than 50% in coordination of care (as documented) at patient's floor/unit and/or counseling patient:
[2022-04-14] MEDS: ACETAMINOPHEN 325 MG TABLET PO PRN (07:54)
[2022-04-14] MEDS: INSULIN LISPRO 1 UNIT/0.01 ML UNIT SQ SCH ×4 (07:54→21:02)
[2022-04-14] MEDS: SEVELAMER 800 MG TABLET PO SCH ×5 (07:54→17:55)
--- NOTE | 2022-04-14 08:37 | Internal Med Progress Note ---
SUBJECTIVE Subjective Patient information: Note initiated : 04/14/22 at 8:35 am Service Date, if different from initiated Date: [] Patient: Murray Beyer 86 y/o M admitted on 04/12/22 for Right foot pain. Chief Complaint: [] Interval history: History of present illness: Mr. Beyer is a 86 year old M Presents to ED from Dr. 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 Patient has been on antibiotics over the past several weeks without improvement. Patient also refers seen early March by wound care. Per the its been enlarging and turning black in the center. Patient denies fever chills chest pain shortness of breath. CT in the ER showed osteo of the distal first metatarsal and proximal phalanx. Patient started on IV antibiotics in the ED. Blood cultures obtained. Patient is a peritoneal dialysis patient and case was discussed with Dr. Dhillon as well. 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 Also history of CAD with stents. History of diabetes. 2/3 Hemoglobin dropped to 8.1 today. No gross bleeding. Monitor closely. Pending chemistry. Peritoneal dialysis per nephrology. / Currently working with physical therapy. Patient sitting up in chair. No overnight event or new complaints. Hemoglobin improved from yesterday. Continue IV antibiotics wound care per Dr. Denny. ID consult pending. Review of Systems: denies headache/fever/chills/nausea/vomiting/chest or abdominal pain/cough/dyspnea/diarrhea. Otherwise see above. Constitutional Vitals: Vital Signs Temp Pulse Resp BP Pulse Ox O2 Del Method 98.7 F 81 18 155/91 95 Room Air 04/14/22 07:37 04/14/22 07:37 04/14/22 07:37 04/14/22 07:37 04/14/22 07:37 04/14/22 07:37 Period Temp Pulse Resp BP Sys/Suarez Pulse Ox O2 Del Method O2 Flow Rate Last 24 Hr 97.6 F-98.7 F 77-84 16-18 128-166/75-94 94-96 Room Air-Room Air Intake and Output 04/13/22 04/14/22 04/14/22 19:59 03:59 11:59 Intake Total 1180 400 Output Total 4 1 Balance 1176 399 Weight 84.005 kg Intake & Output: Intake & Output 04/13/22 04/14/22 04/14/22 19:59 03:59 11:59 Intake Total 1180 400 Output Total 4 1 Balance 1176 399 Weight 84.005 kg Intake: Oral 1180 400 Output: # of times incontinent of urine 4 1 Other: Meal Dinner Percent of Meal Consumed 100% Feeding Ability Assist with Tray Set Up Urine Appearance Clear Clear Urine Color Yellow Yellow Urine Odor Normal Normal Stool Size Large Moderate Stool Color Brown Brown Stool Consistency Soft Formed # of times incontinent of 1 Bowels Exam: General: Alert, Awake, No acute Distress Eyes/N/T: EOMI, Head/Neck: neck supple, CV: RRR, No murmurs, Pulm: Clear b/l, no wheezing/rhonchi/rales Abd: soft, nontender, +BS x4, PD catheter Ext: no clubbing/cyanosis/edema, foot in dressings Neuro: Alert, no focal deficits, moves all extremities, Skin: warm/dry OBJ DATA Labs 04/14/22 05:33 04/14/22 05:33 Labs: Abnormal Lab Results 04/14/22 04/14/22 04/13/22 05:33 05:33 05:35 RBC 2.96 L Hgb 9.4 L Hct 28.6 L POC Hct Immature Gran % (Auto) 0.6 H Lymph # (Auto) 1.41 L POC BUN BUN 67 H 70 H Creatinine 6.4 H* 6.7 H* POC Creatinine Glucose 141 H 146 H POC Glucose Calcium 8.3 L 8.1 L POC WB Ioniz Calcium Phosphorus 5.9 H* 6.0 H* Lactate Dehydrogenase 237 H Total Protein 5.7 L Albumin 2.5 L 2.4 L Albumin/Globulin Ratio 0.7 L 0.7 L Triglycerides 161 H 04/13/22 04/12/22 04/12/22 05:35 15:28 15:22 RBC 2.58 L Hgb 8.1 L Hct 25.4 L POC Hct 27.0 L Immature Gran % (Auto) 0.9 H Lymph # (Auto) 1.07 L POC BUN 77 H BUN Creatinine POC Creatinine 8.7 H* Glucose POC Glucose 130 H Calcium POC WB Ioniz Calcium 1.12 L Phosphorus Lactate Dehydrogenase Total Protein Albumin 2.9 L Albumin/Globulin Ratio Triglycerides 04/12/22 15:22 RBC 2.89 L Hgb 9.1 L Hct 28.4 L POC Hct Immature Gran % (Auto) Lymph # (Auto) 1.47 L POC BUN BUN Creatinine POC Creatinine Glucose POC Glucose Calcium POC WB Ioniz Calcium Phosphorus Lactate Dehydrogenase Total Protein Albumin Albumin/Globulin Ratio Triglycerides Meds: Medications Acetaminophen (Acetaminophen 325 Mg Tablet) 650 mg PO Q6HP PRN; Protocol PRN Reason: Per Pain Protocol/Fever > 101 Last Admin: 04/14/22 07:54 Dose: 650 mg Hydrocodone Bitart/Acetaminophen (Hydrocodone/Apap 5/325mg Tablet) 1 tab PO Q4HP PRN PRN Reason: PAIN LEVEL 3-6 Last Admin: 04/14/22 05:47 Dose: 1 tab Albuterol/Ipratropium (Ipratropium/Albuterol 3 Ml Ampul.Neb) 3 ml NEB Q4HP PRN PRN Reason: Shortness Of Breath Aspirin (Aspirin 81 Mg Tab.Chew) 81 mg PO DAILY [facility] Clopidogrel Bisulfate (Clopidogrel 75 Mg Tablet) 75 mg PO QDAY [facility] Collagenase (Collagenase Top Oint Tube 30gm) 1 dose TOPICAL DAILY [facility] Last Admin: 04/13/22 12:00 Dose: 1 dose Dextrose (Dextrose 50% 50 Ml Vial) 0 ml IV UD PRN PRN Reason: Per Sliding Scale Diagnostic Test (Pha) (Accu-Chek 1 Each Strip) 1 each FS ACHS [facility] Last Admin: 04/14/22 07:33 Dose: 1 each Docusate Sodium (Docusate Sodium 100 Mg Capsule) 100 mg PO BID [facility] Last Admin: 04/13/22 22:01 Dose: 100 mg Finasteride (Finasteride 5 Mg Tablet) 5 mg PO QDAY [facility] Gentamicin Sulfate (Gentamicin Crm 0.1% Tube 15gm) 1 dose TOPICAL TID [facility] Last Admin: 04/14/22 05:52 Dose: Not Given Glucose (Dextrose 31 Gm Oral.Susp) 15 gm PO PRN PRN PRN Reason: Hypoglycemia Heparin Sodium (Porcine) (Heparin 5,000 Unit/Ml Vial) 5,000 unit SQ Q12 [facility] Last Admin: 04/13/22 22:00 Dose: 5,000 unit Ceftriaxone Sodium 2 gm/ (Dextrose) 50 mls @ 100 mls/hr IV Q24H [facility]; Protocol Last Infusion: 04/13/22 09:56 Dose: Infused Potassium Chloride 40 meq/ (Dextrose) 520 mls @ 130 mls/hr IV UD PRN PRN Reason: Potassium < 3 Magnesium Sulfate (Magnesium Sulfate) 2 gm in 50 mls @ 50 mls/hr IV UD PRN PRN Reason: Magnesium </= 1.6 Insulin Glargine (Insulin Glargine, Human 1 Unit/0.01 Ml) 10 unit SQ [facility] Last Admin: 04/13/22 22:00 Dose: 10 units Insulin Human Lispro (Insulin Lispro 1 Unit/0.01 Ml Unit) 0 unit SQ [facility]; Protocol Last Admin: 04/14/22 07:54 Dose: 2 units Levothyroxine Sodium (Levothyroxine 150 Mcg Tablet) 150 mcg PO QAMAC [facility] Last Admin: 04/14/22 07:33 Dose: 150 mcg Losartan Potassium (Losartan 25 Mg Tablet) 12.5 mg PO HSP PRN PRN Reason: Hypertension Nitroglycerin (Nitroglycerin 0.4 Mg Tab.Subl) 0.4 mg SL Q5M PRN PRN Reason: chest pain Omeprazole (Omeprazole 20 Mg Capsule) 40 mg PO ACB [facility] Last Admin: 04/14/22 07:33 Dose: 40 mg Ondansetron HCl (Ondansetron 4 Mg/2 Ml Vial) 4 mg IV Q4HP PRN PRN Reason: Nausea And Vomiting Polyethylene Glycol (Polyethylene Glycol 3350 17 Gm Packet) 17 gm PO DAILYP PRN PRN Reason: Constipation Last Admin: 04/13/22 09:55 Dose: 17 gm Potassium Chloride (Potassium Chloride 20 Meq Tablet) 40 meq PO UD PRN PRN Reason: Potssium is 3-3.5 Potassium Chloride (Potassium Chloride 20 Meq Tablet) 40 meq PO UD PRN PRN Reason: Potassium < 3 Senna (Sennosides 1 Tablet) 2 tab PO DAILYP PRN PRN Reason: Constipation Senna/Docusate Sodium (Sennosides/Docusate Sodium 1 Tab Tablet) 1 tab PO HS [facility] Last Admin: 04/13/22 22:01 Dose: 1 tab Sevelamer Carbonate (Sevelamer 800 Mg Tablet) 800 mg PO TIDCC [facility] Last Admin: 04/14/22 07:54 Dose: 800 mg Sevelamer Carbonate (Sevelamer 800 Mg Tablet) 800 mg PO BIDCC [facility] Last Admin: 04/14/22 08:24 Dose: Not Given Sodium Chloride (0.9 % Sodium Chloride 10 Ml Syringe) 10 ml IV Q8 [facility] Last Admin: 04/14/22 05:47 Dose: 10 ml Tamsulosin HCl (Tamsulosin 0.4 Mg Capsule) 0.4 mg PO QDAY [facility] Vitamin D (Vitamin D3 25 Mcg Tablet) 50 mcg PO DAILY [facility] A/P Narrative A/P Narrative: A: *Right foot/toe cellulitis/eschar and osteomyelitis: *ESRD on PD: *Anemia, chronic: *DM2: *HTN: *h/o CVA's w/residual left hemiparesis and cognitive impairment: on asa/plavix *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 Denny following -ID Consult -basal and SSI -monitor ESR/CRP -Continue home antiplatelet, cont home ARB -PT/OT -CM for placement needs -ppx: Heparin/PPI DNR Plan of Treatment: Plan: Local wound care, IV antibiotics / Offloading. Time Spent With Patient Time: Total time spent is greater than 50% in coordination of care (as documented) at patient's floor/unit and/or counseling patient: Subsequent: Total time with patient: 35 - 49 minutes
[2022-04-14] MEDS: cefTRIAXone 2 GM in DEXTROSE 5% IN WATER 50 ML IV SCH (08:44)
[2022-04-14] MEDS: CLOPIDOGREL 75 MG TABLET PO SCH (08:44)
[2022-04-14] MEDS: DOCUSATE SODIUM 100 MG CAPSULE PO SCH ×2 (08:44→21:00)
[2022-04-14] MEDS: TAMSULOSIN 0.4 MG CAPSULE PO SCH (08:44)
[2022-04-14] MEDS: FINASTERIDE 5 MG TABLET PO SCH (08:44)
[2022-04-14] MEDS: VITAMIN D3 25 MCG TABLET PO SCH (08:44)
[2022-04-14] MEDS: ASPIRIN 81 MG TAB.CHEW PO SCH (08:44)
[2022-04-14] MEDS: HEPARIN 5,000 UNIT/ML VIAL SQ SCH ×2 (08:45→21:01)
[2022-04-14] MEDS: COLLAGENASE TOP OINT TUBE 30GM TOPICAL SCH (10:41)
[2022-04-14] MEDS ORDERED: hydrALAZINE 20 MG/ML VIAL IV PRN (10:57)
--- NOTE | 2022-04-14 11:04 | General Surgery Progress Note ---
SUBJECTIVE Subjective Patient information: Note initiated : 04/14/22 at 11:00 am Service Date, if different from initiated Date: [] Patient: Murray Beyer 86 y/o M admitted on 04/12/22 for Right foot pain. Chief Complaint: [] Additional PMFSH (Level 3 Only): Patient seen with nursing staff. Doing well. Responding to local wound care and IV antibiotics. Constitutional Vitals: Vital Signs Temp Pulse Resp BP Pulse Ox O2 Del Method 98.7 F 81 18 155/91 95 Room Air 04/14/22 07:37 04/14/22 07:37 04/14/22 07:37 04/14/22 07:37 04/14/22 07:37 04/14/22 07:37 Period Temp Pulse Resp BP Sys/Suarez Pulse Ox O2 Del Method O2 Flow Rate Last 24 Hr 97.6 F-98.7 F 77-84 16-18 128-166/75-94 94-96 Room Air-Room Air Intake and Output 04/13/22 04/14/22 04/14/22 19:59 03:59 11:59 Intake Total 1180 450 Output Total 4 1 Balance 1176 449 Weight 185 lb 3.2 oz Intake & Output: Intake & Output 04/13/22 04/14/22 04/14/22 19:59 03:59 11:59 Intake Total 1180 450 Output Total 4 1 Balance 1176 449 Weight 185 lb 3.2 oz Intake: IV 50 Rocephin 2 gm In Dextrose 5% in 50 Water 50 ml @ 100 mls/hr IV Q24H [facility] Rx#:[id number] Oral 1180 400 Output: # of times incontinent of urine 4 1 Other: Meal Dinner Percent of Meal Consumed 100% Feeding Ability Assist with Tray Set Up Urine Appearance Clear Clear Urine Color Yellow Yellow Urine Odor Normal Normal Stool Size Large Moderate Stool Color Brown Brown Stool Consistency Soft Formed # of times incontinent of 1 Bowels Exam: AVSS. No changes AURELIANO. L/E: resolving cellulitis Right medial great toe MPJ A/P Narrative A/P Narrative: Assessment: Progressing well. Plan of Treatment: Plan: Local wound care, IV antibiotics / Offloading. Time Spent With Patient Time: Total time spent is greater than 50% in coordination of care (as documented) at patient's floor/unit and/or counseling patient: Subsequent: Total time with patient: Less than 25 minutes
[2022-04-14] MEDS: SENNOSIDES/DOCUSATE SODIUM 1 TAB TABLET PO SCH (21:01)
[2022-04-14] MEDS: INSULIN GLARGINE, HUMAN 1 UNIT/0.01 ML SQ SCH (21:01)
[2022-04-15] MEDS: 0.9 % SODIUM CHLORIDE 10 ML SYRINGE IV SCH ×3 (04:56→20:47)
[2022-04-15] MEDS: HYDROcodone/APAP 5/325MG TABLET PO PRN (04:56)
[2022-04-15] MEDS: LEVOTHYROXINE 150 MCG TABLET PO SCH (08:11)
[2022-04-15] MEDS: FINASTERIDE 5 MG TABLET PO SCH (08:11)
[2022-04-15] MEDS: VITAMIN D3 25 MCG TABLET PO SCH (08:11)
[2022-04-15] MEDS: OMEPRAZOLE 20 MG CAPSULE PO SCH (08:12)
[2022-04-15] MEDS: TAMSULOSIN 0.4 MG CAPSULE PO SCH (08:12)
[2022-04-15] MEDS: CLOPIDOGREL 75 MG TABLET PO SCH (08:12)
[2022-04-15] MEDS: SEVELAMER 800 MG TABLET PO SCH ×4 (08:12→16:47)
[2022-04-15] MEDS: ASPIRIN 81 MG TAB.CHEW PO SCH (08:12)
[2022-04-15] MEDS: HEPARIN 5,000 UNIT/ML VIAL SQ SCH ×2 (08:12→20:46)
[2022-04-15] MEDS: DOCUSATE SODIUM 100 MG CAPSULE PO SCH ×2 (08:12→20:45)
[2022-04-15] MEDS: cefTRIAXone 2 GM in DEXTROSE 5% IN WATER 50 ML IV SCH (08:13)
[2022-04-15] MEDS: INSULIN LISPRO 1 UNIT/0.01 ML UNIT SQ SCH ×4 (08:14→20:46)
--- NOTE | 2022-04-15 08:38 | Internal Med Progress Note ---
SUBJECTIVE Subjective Patient information: Note initiated : 04/15/22 at 8:36 am Service Date, if different from initiated Date: [] Patient: Murray Beyer 86 y/o M admitted on 04/12/22 for Right foot pain. Chief Complaint: [] Interval history: History of present illness: Mr. Beyer is a 86 year old M Presents to ED from Dr. 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 Patient has been on antibiotics over the past several weeks without improvement. Patient also refers seen early March by wound care. Per the its been enlarging and turning black in the center. Patient denies fever chills chest pain shortness of breath. CT in the ER showed osteo of the distal first metatarsal and proximal phalanx. Patient started on IV antibiotics in the ED. Blood cultures obtained. Patient is a peritoneal dialysis patient and case was discussed with Dr. Dhillon as well. 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 Also history of CAD with stents. History of diabetes. 04/13 Hemoglobin dropped to 8.1 today. No gross bleeding. Monitor closely. Pending chemistry. Peritoneal dialysis per nephrology. 04/14 Currently working with physical therapy. Patient sitting up in chair. No overnight event or new complaints. Hemoglobin improved from yesterday. Continue IV antibiotics wound care per Dr. Denny. ID consult pending. 04/15 Pleasant and sitting in chair this morning. No overnight event or new complaints. Continue IV biotic. ID consult. Wound care per Dr. Villalta Review of Systems: denies headache/fever/chills/nausea/vomiting/chest or abdominal pain/cough/dyspnea/diarrhea. Otherwise see above. Constitutional Vitals: Vital Signs Temp Pulse Resp BP Pulse Ox O2 Del Method 98.6 F 85 17 138/79 93 Room Air 04/15/22 06:13 04/15/22 06:13 04/15/22 06:13 04/15/22 06:13 04/15/22 06:13 04/15/22 06:13 Period Temp Pulse Resp BP Sys/Suarez Pulse Ox O2 Del Method O2 Flow Rate Last 24 Hr 97.4 F-98.6 F 75-93 16-18 127-157/76-95 93-98 Room Air-Room Air Intake and Output 04/14/22 04/15/22 04/15/22 19:59 03:59 11:59 Intake Total 720 300 Output Total 2 2 Balance 718 298 Weight 86.727 kg Intake & Output: Intake & Output 04/14/22 04/15/22 04/15/22 19:59 03:59 11:59 Intake Total 720 300 Output Total 2 2 Balance 718 298 Weight 86.727 kg Intake: Oral 720 300 Output: # of times incontinent of urine 2 2 Other: Meal Dinner Percent of Meal Consumed 100% Feeding Ability Assist with Tray Set Up Urine Appearance Clear Clear Urine Odor Normal Exam: General: Alert, Awake, No acute Distress Eyes/N/T: EOMI, Head/Neck: neck supple, CV: RRR, No murmurs, Pulm: Clear b/l, no wheezing/rhonchi/rales Abd: soft, nontender, +BS x4, PD catheter Ext: no clubbing/cyanosis/edema, foot in dressings Neuro: Alert, no focal deficits, moves all extremities, Skin: warm/dry OBJ DATA Labs 04/14/22 05:33 04/14/22 05:33 Labs: Abnormal Lab Results 04/14/22 04/14/22 04/14/22 09:51 05:33 05:33 RBC 2.96 L Hgb 9.4 L Hct 28.6 L POC Hct Immature Gran % (Auto) 0.6 H Lymph # (Auto) 1.41 L ESR 90 H POC BUN BUN 67 H Creatinine 6.4 H* POC Creatinine Glucose 141 H POC Glucose Calcium 8.3 L POC WB Ioniz Calcium Phosphorus 5.9 H* Lactate Dehydrogenase 237 H C-Reactive Protein Total Protein Albumin 2.5 L Albumin/Globulin Ratio 0.7 L Triglycerides 161 H 04/14/22 04/13/22 04/13/22 05:30 05:35 05:35 RBC 2.58 L Hgb 8.1 L Hct 25.4 L POC Hct Immature Gran % (Auto) 0.9 H Lymph # (Auto) 1.07 L ESR POC BUN BUN 70 H Creatinine 6.7 H* POC Creatinine Glucose 146 H POC Glucose Calcium 8.1 L POC WB Ioniz Calcium Phosphorus 6.0 H* Lactate Dehydrogenase C-Reactive Protein 9.70 H Total Protein 5.7 L Albumin 2.4 L Albumin/Globulin Ratio 0.7 L Triglycerides 04/12/22 04/12/22 04/12/22 15:28 15:22 15:22 RBC 2.89 L Hgb 9.1 L Hct 28.4 L POC Hct 27.0 L Immature Gran % (Auto) Lymph # (Auto) 1.47 L ESR POC BUN 77 H BUN Creatinine POC Creatinine 8.7 H* Glucose POC Glucose 130 H Calcium POC WB Ioniz Calcium 1.12 L Phosphorus Lactate Dehydrogenase C-Reactive Protein Total Protein Albumin 2.9 L Albumin/Globulin Ratio Triglycerides Meds: Medications Acetaminophen (Acetaminophen 325 Mg Tablet) 650 mg PO Q6HP PRN; Protocol PRN Reason: Per Pain Protocol/Fever > 101 Last Admin: 04/14/22 07:54 Dose: 650 mg Hydrocodone Bitart/Acetaminophen (Hydrocodone/Apap 5/325mg Tablet) 1 tab PO Q4HP PRN PRN Reason: PAIN LEVEL 3-6 Last Admin: 04/15/22 04:56 Dose: 1 tab Albuterol/Ipratropium (Ipratropium/Albuterol 3 Ml Ampul.Neb) 3 ml NEB Q4HP PRN PRN Reason: Shortness Of Breath Aspirin (Aspirin 81 Mg Tab.Chew) 81 mg PO DAILY [facility] Last Admin: 04/15/22 08:12 Dose: 81 mg Clopidogrel Bisulfate (Clopidogrel 75 Mg Tablet) 75 mg PO QDAY [facility] Last Admin: 04/15/22 08:12 Dose: 75 mg Collagenase (Collagenase Top Oint Tube 30gm) 1 dose TOPICAL DAILY [facility] Last Admin: 04/14/22 10:41 Dose: 1 dose Dextrose (Dextrose 50% 50 Ml Vial) 0 ml IV UD PRN PRN Reason: Per Sliding Scale Diagnostic Test (Pha) (Accu-Chek 1 Each Strip) 1 each FS ACHS [facility] Last Admin: 04/15/22 08:14 Dose: 1 each Docusate Sodium (Docusate Sodium 100 Mg Capsule) 100 mg PO BID [facility] Last Admin: 04/15/22 08:12 Dose: 100 mg Finasteride (Finasteride 5 Mg Tablet) 5 mg PO QDAY [facility] Last Admin: 04/15/22 08:11 Dose: 5 mg Gentamicin Sulfate (Gentamicin Crm 0.1% Tube 15gm) 1 dose TOPICAL TID [facility] Last Admin: 04/14/22 20:05 Dose: 1 appful Glucose (Dextrose 31 Gm Oral.Susp) 15 gm PO PRN PRN PRN Reason: Hypoglycemia Heparin Sodium (Porcine) (Heparin 5,000 Unit/Ml Vial) 5,000 unit SQ Q12 [facility] Last Admin: 04/15/22 08:12 Dose: 5,000 unit Hydralazine HCl (Hydralazine 20 Mg/Ml Vial) 0 mg IV Q2HP PRN PRN Reason: Hypertension Ceftriaxone Sodium 2 gm/ (Dextrose) 50 mls @ 100 mls/hr IV Q24H [facility]; Protocol Last Admin: 04/15/22 08:13 Dose: 100 mls/hr Potassium Chloride 40 meq/ (Dextrose) 520 mls @ 130 mls/hr IV UD PRN PRN Reason: Potassium < 3 Magnesium Sulfate (Magnesium Sulfate) 2 gm in 50 mls @ 50 mls/hr IV UD PRN PRN Reason: Magnesium </= 1.6 Insulin Glargine (Insulin Glargine, Human 1 Unit/0.01 Ml) 10 unit SQ HS [facility] Last Admin: 04/14/22 21:01 Dose: 10 units Insulin Human Lispro (Insulin Lispro 1 Unit/0.01 Ml Unit) 0 unit SQ ACHS [facility]; Protocol Last Admin: 04/15/22 08:14 Dose: Not Given Levothyroxine Sodium (Levothyroxine 150 Mcg Tablet) 150 mcg PO QAMAC [facility] Last Admin: 04/15/22 08:11 Dose: 150 mcg Losartan Potassium (Losartan 25 Mg Tablet) 12.5 mg PO HSP PRN PRN Reason: Hypertension Last Admin: 04/14/22 21:02 Dose: 12.5 mg Nitroglycerin (Nitroglycerin 0.4 Mg Tab.Subl) 0.4 mg SL Q5M PRN PRN Reason: chest pain Omeprazole (Omeprazole 20 Mg Capsule) 40 mg PO ACB [facility] Last Admin: 04/15/22 08:12 Dose: 40 mg Ondansetron HCl (Ondansetron 4 Mg/2 Ml Vial) 4 mg IV Q4HP PRN PRN Reason: Nausea And Vomiting Polyethylene Glycol (Polyethylene Glycol 3350 17 Gm Packet) 17 gm PO DAILYP PRN PRN Reason: Constipation Last Admin: 04/13/22 09:55 Dose: 17 gm Potassium Chloride (Potassium Chloride 20 Meq Tablet) 40 meq PO UD PRN PRN Reason: Potssium is 3-3.5 Potassium Chloride (Potassium Chloride 20 Meq Tablet) 40 meq PO UD PRN PRN Reason: Potassium < 3 Senna (Sennosides 1 Tablet) 2 tab PO DAILYP PRN PRN Reason: Constipation Senna/Docusate Sodium (Sennosides/Docusate Sodium 1 Tab Tablet) 1 tab PO HS [facility] Last Admin: 04/14/22 21:01 Dose: 1 tab Sevelamer Carbonate (Sevelamer 800 Mg Tablet) 800 mg PO TIDCC [facility] Last Admin: 04/15/22 08:12 Dose: 800 mg Sevelamer Carbonate (Sevelamer 800 Mg Tablet) 800 mg PO BIDCC [facility] Last Admin: 04/15/22 08:12 Dose: Not Given Sodium Chloride (0.9 % Sodium Chloride 10 Ml Syringe) 10 ml IV Q8 [facility] Last Admin: 04/15/22 04:56 Dose: 10 ml Tamsulosin HCl (Tamsulosin 0.4 Mg Capsule) 0.4 mg PO QDAY [facility] Last Admin: 04/15/22 08:12 Dose: 0.4 mg Vitamin D (Vitamin D3 25 Mcg Tablet) 50 mcg PO DAILY [facility] Last Admin: 04/15/22 08:11 Dose: 50 mcg A/P Narrative A/P Narrative: A: *Right foot/toe cellulitis/eschar and osteomyelitis: *ESRD on PD: *Anemia, chronic: *DM2: *HTN: *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 Denny following -ID Consult -basal and SSI -monitor ESR/CRP -Continue home antiplatelet, cont home ARB -PT/OT -CM for placement needs -ppx: Heparin/PPI DNR Plan of Treatment: Plan: Local wound care, IV antibiotics / Offloading. Time Spent With Patient Time: Total time spent is greater than 50% in coordination of care (as documented) at patient's floor/unit and/or counseling patient:
[2022-04-15] MEDS: GENTAMICIN CRM 0.1% TUBE 15GM TOPICAL SCH ×3 (09:36→22:26)
[2022-04-15] MEDS: COLLAGENASE TOP OINT TUBE 30GM TOPICAL SCH (09:36)
--- NOTE | 2022-04-15 11:20 | Discharge Summary ---
Discharge Provider Provider IMPORTANT FOLLOW-UP INFORMATION FOR PCP: Patient information: Note initiated : 04/15/22 at 11:19 am Service Date, if different from initiated Date: [] Patient: Murray Beyer 86 y/o M admitted on 04/12/22 for Right foot pain. Chief Complaint: [] Date of admission: 04/12/22 20:10 Primary care physician: Sarmad Quintana MD Consults: 04/12/22 Consult to Physician [CONS] Stat Comment: Consulting Provider: Reynold Bhakta Reason For Exam: Physician to Consult Consult to Physician [CONS] Stat Comment: Consulting Provider: Kylah Dhillon Reason For Exam: Physician to Consult 04/12/22 20:15 Consult to Physician [CONS] Routine Comment: Consulting Provider: Michael Denny Reason For Exam: Physician to Consult Consult to Physician [CONS] Routine Comment: osteomyelitis of foot right Consulting Provider: Ryne Delgado - ID Reason For Exam: Physician to Consult COURSE Hospital Course Hospital course: History of present illness: Mr. Beyer is a 86 year old M Presents to ED from Dr. 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 Patient has been on antibiotics over the past several weeks without improvement. Patient also refers seen early March by wound care. Per the its been enlarging and turning black in the center. Patient denies fever chills chest pain shortness of breath. CT in the ER showed osteo of the distal first metatarsal and proximal phalanx. Patient started on IV antibiotics in the ED. Blood cultures obtained. Patient is a peritoneal dialysis patient and case was discussed with Dr. Dhillon as well. 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 Also history of CAD with stents. History of diabetes. 2/3 Hemoglobin dropped to 8.1 today. No gross bleeding. Monitor closely. Pending chemistry. Peritoneal dialysis per nephrology. 04/14 Currently working with physical therapy. Patient sitting up in chair. No overnight event or new complaints. Hemoglobin improved from yesterday. Continue IV antibiotics wound care per Dr. Denny. ID consult pending. 2/5 Pleasant and sitting in chair this morning. No overnight event or new complaints. Continue IV biotic. ID consult. Wound care per Dr. Villalta A: *Right foot/toe cellulitis/eschar and osteomyelitis: *ESRD on PD: *Anemia, chronic: *DM2: *HTN: *h/o CVA's w/residual left hemiparesis and cognitive impairment: on asa/plavix *Likely vascular Dementia from above: *CAD w/stents: *GERD: *Hypothyroidism: P: -IV Abx per ID -Dr. Denny / wound care DNR Discharge diagnosis: Osteomyelitis of the right foot Secondary discharge diagnosis: End-stage renal disease chronic anemia diabetes hypertension history of strokes likely vascular dementia CAD GERD Time Spent with Patient Time attestation: Total time spent providing and/or coordinating discharge services: Time spent: Greater than 30 minutes EXAM Constitutional Vitals: Temp Pulse Resp BP Pulse Ox O2 Del Method 98.8 F 84 18 135/82 94 Room Air 04/15/22 08:00 04/15/22 08:00 04/15/22 08:00 04/15/22 08:00 04/15/22 08:00 04/15/22 08:00 Discharge Plan Patient/Caregiver Discharge Instructions Activity: increase activity as tolerated Diet: Consistent Carbohydrate Instructions: Osteomyelitis (ED), Diabetic Foot Ulcers (ED) Activity Restrictions/Additional Instructions: Follow-up with ID specialist for long-term antibiotics outpatient. Prescriptions: Continued (DME) blood-glucose meter Kit See Rx Instructions .ROUTE .MEDSUPPLY Qty: 1 0RF Rx Instructions: check glucose AC and HS (DME) OneTouch Ultra Blue Test Strip Strip See Rx Instructions .Route Qty: 300 5RF Rx Instructions: Use to test BG after meals and at bedtime as needed (DME) lancets [OneTouch Delica Lancets] 30 gauge misc See Rx Instructions .Route Qty: 300 5RF Rx Instructions: Use to test BG after meals and at bedtime as needed nitroglycerin 0.4 mg tablet, sublingual 0.4 mg sublingual Q5M PRN (Reason: chest pain) Qty: 100 3RF Rx Instructions: do not exceed 3 doses per episode gentamicin 0.1 % ointment 1 applic topical TID Qty: 30 11RF levothyroxine 150 mcg tablet 150 mcg PO QDAY Qty: 90 1RF Levemir FlexTouch U-100 Insuln 100 unit/mL (3 mL) insulin pen 10 unit subcut QHS Qty: 15 1RF finasteride 5 mg tablet 5 mg PO QDAY Qty: 90 1RF clopidogrel [Plavix] 75 mg tablet 75 mg PO QDAY Qty: 90 1RF omeprazole 40 mg capsule,delayed release(DR/EC) 40 mg PO QDAY Qty: 90 3RF sevelamer carbonate 800 mg tablet 800 mg PO BID Qty: 180 11RF (DME) pen needle, diabetic [Comfort EZ Pen [place]] 32 gauge x 5/32" needle See Rx Instructions .Route Qty: 100 3RF Rx Instructions: Use once daily with Levemir injections aspirin 81 mg tablet,delayed release (DR/EC) 81 mg PO QDAY losartan 25 mg tablet 12.5 mg PO QHS PRN (Reason: Hypertension) Rx Instructions: Hold if systolic BP is <150. PRN give only if systolic BP is >150 Flonase Sensimist 27.5 mcg/actuation spray,suspension 1 spray INTRANASAL QDAY PRN (Reason: Allergies) Rx Instructions: into each nostril Bedside Commode See Rx Instructions .ROUTE .COMPLEX Qty: 1 0RF Rx Instructions: ESRD on PD Deconditioning protein and calorie malnutrition; fall risk; sennosides-docusate sodium [Stimulant Laxative Plus] 8.6-50 mg Tablet 1 tab PO HS Qty: 30 0RF tamsulosin [Flomax] 0.4 mg capsule 0.4 mg PO QDAY coQ10 (ubiquinol) 100 mg Capsule 100 mg PO QAM multivit with min-folic acid 0.4 mg Tablet 2 tab PO DAILY Rx Instructions: cardio plus, take with food cholecalciferol (vitamin D3) [Vitamin D3] 50 mcg (2,000 unit) Tablet 50 mcg PO DAILY ascorbic acid (vitamin C) 1,000 mg Tablet 1,000 mg PO DAILY Follow Up Plan Follow up with: Sarmad Quintana MD [Primary Care Provider] - Plan of Treatment: As laid out above Overall status at discharge: patient is progressing back to baseline
--- NOTE | 2022-04-15 11:41 | Nephrology Progress Note ---
SUBJECTIVE Subjective Patient information: Note initiated : 04/15/22 at 11:40 am Service Date, if different from initiated Date: [] Patient: Murray Beyer 86 y/o M admitted on 04/12/22 for Right foot pain. Chief Complaint: [foot infection] Principal diagnosis: right foot metatarsal osteomylitis Interval history: Awaiting ID "consult" No blood or bone cultures CT evidence of bone erosion Pertinent ROS: No fever or chills Up in chair yesterday Weakness Additional PMFSH (Level 3 Only): N/A Constitutional Vitals: Vital Signs Temp Pulse Resp BP Pulse Ox O2 Del Method 37.1 C 84 18 135/82 94 Room Air 04/15/22 08:00 04/15/22 08:00 04/15/22 08:00 04/15/22 08:00 04/15/22 08:00 04/15/22 08:00 Period Temp Pulse Resp BP Sys/Suarez Pulse Ox O2 Del Method O2 Flow Rate Last 24 Hr 36.3 C-37.1 C 83-93 16-18 133-157/79-95 93-96 Room Air-Room Air Intake and Output 04/14/22 04/15/22 04/15/22 19:59 03:59 11:59 Intake Total 720 350 Output Total 2 2 Balance 718 348 Weight 86.727 kg Intake & Output: Intake & Output 04/14/22 04/15/22 04/15/22 19:59 03:59 11:59 Intake Total 720 350 Output Total 2 2 Balance 718 348 Weight 86.727 kg Intake: IV 50 Rocephin 2 gm In Dextrose 5% in 50 Water 50 ml @ 100 mls/hr IV Q24H JACKELYN Rx#:[id number] Oral 720 300 Output: # of times incontinent of urine 2 2 Other: Meal Dinner Percent of Meal Consumed 100% Feeding Ability Assist with Tray Set Up Urine Appearance Clear Clear Urine Odor Normal General appearance: average body habitus and mild distress Head Head exam: Present normal inspection and normocephalic Eye Eye exam: Present EOMI and PERRL; Absent scleral icterus ENT ENT exam: Present mucous membranes moist Neck Neck exam: Present normal inspection Respiratory Respiratory exam: Present rhonchi and wheezes (Expiratory); Absent rales Cardiovascular Cardiovascular exam: Present normal rate and rhythm, +S1 and +S2 GI/Abdominal GI/Abdominal exam: Present soft and diminished bowel sounds Additional comments: PD catheter in place Extremities Exam Extremities exam: Present pedal edema; Absent calf tenderness or tenderness Neurological Exam Neurological exam: Present abnormal gait (Up in chair, prehospital walked SLOWLY with walker...now 2 person assist) and CN II-XII intact Psychiatric Psychiatric exam: Present flat affect Skin Skin exam: Present dry A/P Assessment and plan (1) Encounter for peritoneal dialysis for ESRD: Status: Chronic Comment: CCPD (2) 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 PD dialysis for now. 2. Since this is not a dialysis related infection, medicare rules makes it impossible to be given ABx via peritoneum. 3. This means he will need a picc line 4. As he will need to go to [facility] where HE CAN NO LONGER UNDERGO PERITONEAL DIALYSIS, he will have to have a cuffed HD catheter placed by Dr DICKENS at [facility]. If this cannot be done now, he will have to be discharged to [facility] THEN transferred to [facility] after recovery from the outpatient procedure. 5. Will need transfer to/fro HD unit 3x/week for dialysis 6. Someone will have to manage Vancomycin dosing, monitoring drug levels and ESR, complement and CRP trends. 7. Does this patient need surgical debridement? 8. End of ambulatory state => accelerated decline of overall health => suspect life expectancy will be less than a year Plan of Treatment: As laid out above Time Spent With Patient Time: Total time spent is greater than 50% in coordination of care (as documented) at patient's floor/unit and/or counseling patient: Subsequent: Total time with patient: 50 - 65 Minutes
--- NOTE | 2022-04-15 14:55 | Infectious Disease Consult ---
Telemedicine Intake Consent for assessment and treatment to occur via virtual technology obtained from: Other () Location of Provider: Home Patient location: Med/Surg Unit HPI Date of Consult Consult Date: 04/15/22 Requesting physician: Reynold Bhakta Primary Care Provider: Sarmad Quintana MD Consult Narrative Patient Information: Note initiated : 04/15/22 at 2:54 pm Service Date, if different from initiated Date: [] Patient: Murray Beyer 86 y/o M admitted on 04/12/22 for Right foot pain. Chief Complaint: [] Patient with a history of diabetes, ESRD on PD, CVA sent to the emergency room for concern for osteomyelitis, cellulitis. Patient developed a blister on the medial aspect of his right foot at the metatarsal head. He has been seen in wound care center since the beginning of March and has not improved. 2 days prior to admission patient was suggested to have a CT to rule out osteomyelitis. He was prescribed oral antibiotic as well. The CT showed osteomyelitis and patient was admitted and started on vancomycin and ceftriaxone. However vancomycin was stopped due to concern for renal function. Cellulitis has improved and ID is consulted for antibiotic management. At this time there has not been a biopsy or culture done. Chief complaint: cellulitis Reason for consult: Recommendations osteomyelitis cc:: CC: Reynold Bhakta Constitutional Constitutional: Present fever(s) (No fever) PFSH PFSH All Active Problems (Updated 04/15/22 @ 14:48 by Toro Bautista MD) Benign prostatic hypertrophy with lower urinary tract symptoms (LUTS) (Acute 08/31/13) CVA (cerebral vascular accident) (Acute) Cerebrovascular disease (Acute) Depression (Acute) Elevated prostate specific antigen (PSA) (Acute) Erectile dysfunction (Acute) Hyperlipidemia (Acute) Hypertension, essential (Chronic) Hypertensive renal disease (Chronic) Incomplete bladder emptying (Acute 08/31/13) Mitral and aortic valve regurgitation (Acute) Nocturia (Acute) Renal osteodystrophy (Chronic) Sleep apnea (Acute) Testicular hypofunction (Acute) Testosterone deficiency (Acute) Personal history of transient ischemic attack (TIA) and cerebral infarction without residual deficit (Acute) Hypertrophy of nasal turbinates (Acute) Urinary retention (Acute) Urinary tract infection (Acute 10/08/13) Vitamin D deficiency (Acute) History of appendectomy (Acute) History of hernia surgery (Acute) History of inguinal hernia repair, bilateral (Acute) History of tonsillectomy (Acute) Abrasion (Acute) Cellulitis and abscess (Acute) Ankle sprain (Acute) Bronchitis (Acute) Prediabetes (Acute) Chest pain (Acute) Pseudobulbar affect (Acute) 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 stage 5 chronic kidney disease (Chronic) Chronic systolic congestive heart failure due to valvular disease (Chronic) COVID-19 virus IgG antibody test result unknown (Acute) 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 (Acute) Inflammatory arthritis (Acute) Rheumatoid arthritis (Acute) Hospital discharge follow-up (Acute) Encounter for peritoneal dialysis for ESRD (Acute) Medicare annual wellness visit, initial (Acute) Annual physical exam (Acute) ESRD on peritoneal dialysis (Chronic) Special needs due to difficulty walking unassisted (Acute) Right shoulder pain (Acute) DMII (diabetes mellitus, type 2) (Acute) Status post insertion of hemodialysis catheter (Acute) GERD (gastroesophageal reflux disease) (Acute) Annual physical exam (Acute) Hypothyroidism (Acute) Ulcer of right foot (Acute) Diabetic foot ulcer (Acute) Wheezing on exhalation (Acute) Osteomyelitis of ankle or foot, right, acute (Acute) Medical History Abrasion Ankle sprain Annual physical exam Annual physical exam 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 PD catheter placed on 12/24/2019. Training has begun. Benign prostatic hypertrophy with lower urinary tract symptoms (LUTS) (08/31/13) Bronchitis Cellulitis and abscess Cerebrovascular disease Chronic systolic congestive heart failure due to valvular disease Add isordil and hydralazine to to carvedilol, all at low doses Next visit check labs CVA (cerebral vascular accident) 207, three, left sided weakness Depression Nervousness and depression DMII (diabetes mellitus, type 2) Elevated prostate specific antigen (PSA) Erectile dysfunction ESRD on peritoneal dialysis Hospital discharge follow-up Hyperlipidemia Hypertension, essential Controlled on amlodipine 10 mg a day, carvedilol 6.25 mg twice a day Hypertensive renal disease Blood pressure acceptably well controlled on carvedilol. Hypertrophy of nasal turbinates 02/23/2014-Dr Gutierrez Incomplete bladder emptying (08/31/13) Medicare annual wellness visit, initial Mitral and aortic valve regurgitation Nocturia 2-3 times a night Personal history of transient ischemic attack (TIA) and cerebral infarction without residual deficit Right sided numbness Prediabetes Pseudobulbar affect Results of prior CVA Renal osteodystrophy Monitor calcium phosphorus PTH and alkaline phosphatase Right shoulder pain Sleep apnea uses an oral device Special needs due to difficulty walking unassisted Testicular hypofunction Testosterone deficiency Type 2 diabetes mellitus borderline. No drug therapy Urinary retention Urinary tract infection (10/08/13) Vitamin D deficiency Surgical History History of appendectomy History of hernia surgery History of inguinal hernia repair, bilateral History of tonsillectomy Family History Mother Asthma Cardiac disease Enlarged heart Family history of malignant neoplasm of breast in first degree relative Father Essential hypertension Social History marital status: smoking status: Never smoker alcohol intake frequency: holiday/special occasion only substance use type: does not use MEDS/ALLERGIES Home Medications and Allergies Home Medications Medication Instructions Recorded Confirmed Type aspirin 81 mg tablet,delayed 81 mg PO QDAY 06/05/18 04/13/22 History release fluticasone furoate 27.5 1 spray intranasal QDAY PRN 10/13/19 04/13/22 History mcg/actuation nasal Allergies spray,suspension (Flonase Sensimist) Bedside Commode See Rx Instructions .Route 02/12/20 04/13/22 Rx .COMPLEX ESRD on PD Deconditioning ;protein malnutrition #1 device sennosides 8.6 mg-docusate sodium 1 tab PO HS #30 tabs 06/24/20 04/13/22 Rx 50 mg tablet (Stimulant Laxative Plus) blood-glucose meter #1 ea 07/26/20 04/13/22 Rx blood sugar diagnostic (Vertical Performance PartnersTouch #300 ea 07/27/20 04/13/22 Rx Ultra Blue Test Strip) lancets 30 gauge (OneTouch Delica #300 ea 09/07/20 04/13/22 Rx Lancets) nitroglycerin 0.4 mg sublingual 0.4 mg sublingual Q5M PRN chest 12/05/20 04/13/22 Rx tablet pain #100 tabs gentamicin 0.1 % topical ointment 1 applic topical TID PD catheter 03/20/21 04/13/22 Rx exit site #30 grams levothyroxine 150 mcg tablet 150 mcg PO QDAY #90 tabs 11/09/21 04/13/22 Rx insulin detemir U-100 100 unit/mL 10 unit (0.1 mL) subcut QHS #15 mL 11/15/21 04/13/22 Rx (3 mL) subcutaneous pen (Levemir FlexTouch U-100 Insulin) finasteride 5 mg tablet 5 mg PO QDAY #90 tabs 12/05/21 04/13/22 Rx losartan 25 mg tablet 12.5 mg PO QHS PRN Hypertension 12/14/21 04/13/22 History clopidogrel 75 mg tablet (Plavix) 75 mg PO QDAY #90 tabs 12/19/21 04/13/22 Rx omeprazole 40 mg capsule,delayed 40 mg PO QDAY GERD #90 caps 01/08/22 04/13/22 Rx release sevelamer carbonate 800 mg tablet 800 mg PO BID #180 tabs 02/05/22 04/13/22 Rx pen needle, diabetic 32 gauge x #100 ea 03/14/22 04/13/22 Rx 5/32" (Comfort EZ Pen [place]) ascorbic acid (vitamin C) 1,000 mg 1,000 mg PO DAILY 04/13/22 04/13/22 History tablet cholecalciferol (vitamin D3) 50 50 mcg PO DAILY 04/13/22 04/13/22 History mcg (2,000 unit) tablet (Vitamin D3) coQ10 (ubiquinol) 100 mg capsule 100 mg PO QAM 04/13/22 04/13/22 History multivitamin with minerals-folic 2 tab PO DAILY 04/13/22 04/13/22 History acid 0.4 mg tablet tamsulosin 0.4 mg capsule (Flomax) 0.4 mg PO QDAY 04/13/22 04/13/22 History Allergies Allergy/AdvReac Type Severity Reaction Status Date / Time Fish Containing Products Allergy Severe Swelling Verified 04/12/22 14:00 of Lip/Tongue/Throat yellow dye Allergy Mild rash Verified 04/12/22 14:00 rosuvastatin [From Crestor] Allergy Unknown Unknown Verified 04/12/22 14:00 atorvastatin AdvReac Intermediate Muscle Pain Verified 04/12/22 14:00 pravastatin AdvReac Intermediate Cramping Verified 04/12/22 14:00 of the Muscles Penicillins AdvReac Mild Sensitive Verified 04/12/22 14:00 Physical Examination Vital Signs Vital signs: Temp Pulse Resp BP Pulse Ox O2 Del Method 97.4 F 74 18 148/82 94 Room Air 04/15/22 12:00 04/15/22 12:00 04/15/22 12:00 04/15/22 12:00 04/15/22 12:00 04/15/22 12:00 Constitutional General appearance: no acute distress Musculoskeletal Musculoskeletal: other (There is residual erythema and edema of the right foot. On the medial aspect of the first metatarsal there is an eschar without any fluctuance) Results Laboratory Findings 04/14/22 05:33 04/14/22 05:33 Abnormal lab findings: Abnormal Labs 04/12/22 04/12/22 04/12/22 15:22 15:22 15:28 RBC 2.89 L Hgb 9.1 L Hct 28.4 L POC Hct 27.0 L Immature Gran % (Auto) Lymph # (Auto) 1.47 L ESR POC BUN 77 H BUN Creatinine POC Creatinine 8.7 H* Glucose POC Glucose 130 H Calcium POC WB Ioniz Calcium 1.12 L Phosphorus Lactate Dehydrogenase C-Reactive Protein Total Protein Albumin 2.9 L Albumin/Globulin Ratio Triglycerides 04/13/22 04/13/22 04/14/22 05:35 05:35 05:30 RBC 2.58 L Hgb 8.1 L Hct 25.4 L POC Hct Immature Gran % (Auto) 0.9 H Lymph # (Auto) 1.07 L ESR POC BUN BUN 70 H Creatinine 6.7 H* POC Creatinine Glucose 146 H POC Glucose Calcium 8.1 L POC WB Ioniz Calcium Phosphorus 6.0 H* Lactate Dehydrogenase C-Reactive Protein 9.70 H Total Protein 5.7 L Albumin 2.4 L Albumin/Globulin Ratio 0.7 L Triglycerides 04/14/22 04/14/22 04/14/22 05:33 05:33 09:51 RBC 2.96 L Hgb 9.4 L Hct 28.6 L POC Hct Immature Gran % (Auto) 0.6 H Lymph # (Auto) 1.41 L ESR 90 H POC BUN BUN 67 H Creatinine 6.4 H* POC Creatinine Glucose 141 H POC Glucose Calcium 8.3 L POC WB Ioniz Calcium Phosphorus 5.9 H* Lactate Dehydrogenase 237 H C-Reactive Protein Total Protein Albumin 2.5 L Albumin/Globulin Ratio 0.7 L Triglycerides 161 H Microbiology: Microbiology 04/13/22 01:20 Nose - Both Right and Left MRSA (PCR) - Final A/P Sepsis Sepsis Identified: No Narrative A/P Narrative: Patient with multiple medical problems now with a eschar on the medial aspect of the right foot along with cellulitis, osteomyelitis seen on CT. Patient responded to ceftriaxone though he did receive 1 dose of vancomycin. Patient should have a biopsy for culture and pathology. This would help guide therapy. However, if no culture to be done, can discharge on IV ceftriaxone and follow the ESR, CRP. If he does not improve then a biopsy should be done. He should have JULIO as he has no palpable pulse Plan of Treatment: Plan: Local wound care, IV antibiotics / Offloading. Time Spent With Patient Time: Total time spent is greater than 50% in coordination of care (as documented) at patient's floor/unit and/or counseling patient: Initial: Total time with patient: Less than 40 minutes Critical Care Time: No
[2022-04-15] MEDS: SENNOSIDES/DOCUSATE SODIUM 1 TAB TABLET PO SCH (20:45)
[2022-04-15] MEDS: INSULIN GLARGINE, HUMAN 1 UNIT/0.01 ML SQ SCH (20:46)
[2022-04-16] MEDS: 0.9 % SODIUM CHLORIDE 10 ML SYRINGE IV SCH ×5 (06:01→21:22)
--- NOTE | 2022-04-16 07:57 | Internal Med Progress Note ---
SUBJECTIVE Subjective Patient information: Note initiated : 04/16/22 at 7:55 am Service Date, if different from initiated Date: [] Patient: Murray Beyer 86 y/o M admitted on 04/12/22 for Right foot pain. Chief Complaint: [] Principal diagnosis: right foot metatarsal osteomylitis Interval history: History of present illness: Mr. Beyer is a 86 year old M Presents to ED from Dr. 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 Patient has been on antibiotics over the past several weeks without improvement. Patient also refers seen early March by wound care. Per the its been enlarging and turning black in the center. Patient denies fever chills chest pain shortness of breath. CT in the ER showed osteo of the distal first metatarsal and proximal phalanx. Patient started on IV antibiotics in the ED. Blood cultures obtained. Patient is a peritoneal dialysis patient and case was discussed with Dr. Dhillon as well. 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 Also history of CAD with stents. History of diabetes. 04/13 Hemoglobin dropped to 8.1 today. No gross bleeding. Monitor closely. Pending chemistry. Peritoneal dialysis per nephrology. 04/14 Currently working with physical therapy. Patient sitting up in chair. No overnight event or new complaints. Hemoglobin improved from yesterday. Continue IV antibiotics wound care per Dr. Denny. ID consult pending. 04/15 Pleasant and sitting in chair this morning. No overnight event or new complaints. Continue IV biotic. ID consult. Wound care per Dr. Villalta 04/16 Obtaining ankle brachial index. Sorting out placement issues. Patient little wheezy this morning give nebulizer treatment. PT assessment eval. PICC line will need to be placed. Final wound care recs. Review of Systems: denies headache/fever/chills/nausea/vomiting/chest or abdominal pain/cough/dyspnea/diarrhea. Otherwise see above. Constitutional Vitals: Vital Signs Temp Pulse Resp BP Pulse Ox O2 Del Method 99.5 F H 85 17 133/77 93 Room Air 04/16/22 04:35 04/16/22 04:35 04/16/22 04:35 04/16/22 04:35 04/16/22 04:35 04/16/22 04:35 Period Temp Pulse Resp BP Sys/Suarez Pulse Ox O2 Del Method O2 Flow Rate Last 24 Hr 97.2 F-99.5 F 74-91 17-22 133-152/77-87 92-95 Room Air-Room Air Intake and Output 04/15/22 04/16/22 04/16/22 19:59 03:59 11:59 Intake Total 200 Output Total 1 1 Balance -1 199 Weight 87.407 kg Intake & Output: Intake & Output 04/15/22 04/16/22 04/16/22 19:59 03:59 11:59 Intake Total 200 Output Total 1 1 Balance -1 199 Weight 87.407 kg Intake: Oral 200 Output: # of times incontinent of urine 1 1 Other: Urine Color Yellow Urine Odor Normal Stool Size Large Stool Color Brown Stool Consistency Formed # of times incontinent of 1 Bowels Exam: General: Alert, Awake, No acute Distress Eyes/N/T: EOMI, Head/Neck: neck supple, CV: RRR, No murmurs, Pulm: mild wheezing b/l, no rhonchi Abd: soft, nontender, +BS x4, PD catheter Ext: no clubbing/cyanosis/edema, foot in dressings Neuro: Alert, no focal deficits, moves all extremities, Skin: warm/dry OBJ DATA Labs 04/14/22 05:33 04/14/22 05:33 Labs: Abnormal Lab Results 04/14/22 04/14/22 04/14/22 09:51 05:33 05:33 RBC 2.96 L Hgb 9.4 L Hct 28.6 L Immature Gran % (Auto) 0.6 H Lymph # (Auto) 1.41 L ESR 90 H BUN 67 H Creatinine 6.4 H* Glucose 141 H Calcium 8.3 L Phosphorus 5.9 H* Lactate Dehydrogenase 237 H C-Reactive Protein Total Protein Albumin 2.5 L Albumin/Globulin Ratio 0.7 L Triglycerides 161 H 04/14/22 04/13/22 04/13/22 05:30 05:35 05:35 RBC 2.58 L Hgb 8.1 L Hct 25.4 L Immature Gran % (Auto) 0.9 H Lymph # (Auto) 1.07 L ESR BUN 70 H Creatinine 6.7 H* Glucose 146 H Calcium 8.1 L Phosphorus 6.0 H* Lactate Dehydrogenase C-Reactive Protein 9.70 H Total Protein 5.7 L Albumin 2.4 L Albumin/Globulin Ratio 0.7 L Triglycerides Meds: Medications Acetaminophen (Acetaminophen 325 Mg Tablet) 650 mg PO Q6HP PRN; Protocol PRN Reason: Per Pain Protocol/Fever > 101 Last Admin: 04/14/22 07:54 Dose: 650 mg Hydrocodone Bitart/Acetaminophen (Hydrocodone/Apap 5/325mg Tablet) 1 tab PO Q4HP PRN PRN Reason: PAIN LEVEL 3-6 Last Admin: 04/15/22 04:56 Dose: 1 tab Albuterol/Ipratropium (Ipratropium/Albuterol 3 Ml Ampul.Neb) 3 ml NEB Q4HP PRN PRN Reason: Shortness Of Breath Aspirin (Aspirin 81 Mg Tab.Chew) 81 mg PO DAILY [facility] Last Admin: 04/15/22 08:12 Dose: 81 mg Clopidogrel Bisulfate (Clopidogrel 75 Mg Tablet) 75 mg PO QDAY [facility] Last Admin: 04/15/22 08:12 Dose: 75 mg Collagenase (Collagenase Top Oint Tube 30gm) 1 dose TOPICAL DAILY [facility] Last Admin: 04/15/22 09:36 Dose: 1 dose Dextrose (Dextrose 50% 50 Ml Vial) 0 ml IV UD PRN PRN Reason: Per Sliding Scale Diagnostic Test (Pha) (Accu-Chek 1 Each Strip) 1 each FS ACHS [facility] Last Admin: 04/15/22 20:45 Dose: 1 each Docusate Sodium (Docusate Sodium 100 Mg Capsule) 100 mg PO BID [facility] Last Admin: 04/15/22 20:45 Dose: 100 mg Finasteride (Finasteride 5 Mg Tablet) 5 mg PO QDAY [facility] Last Admin: 04/15/22 08:11 Dose: 5 mg Gentamicin Sulfate (Gentamicin Crm 0.1% Tube 15gm) 1 dose TOPICAL HS [facility]; Protocol Last Admin: 04/15/22 22:26 Dose: 1 dose Glucose (Dextrose 31 Gm Oral.Susp) 15 gm PO PRN PRN PRN Reason: Hypoglycemia Heparin Sodium (Porcine) (Heparin 5,000 Unit/Ml Vial) 5,000 unit SQ Q12 [facility] Last Admin: 04/15/22 20:46 Dose: 5,000 unit Hydralazine HCl (Hydralazine 20 Mg/Ml Vial) 0 mg IV Q2HP PRN PRN Reason: Hypertension Ceftriaxone Sodium 2 gm/ (Dextrose) 50 mls @ 100 mls/hr IV Q24H [facility]; Protocol Last Infusion: 04/15/22 09:20 Dose: Infused Potassium Chloride 40 meq/ (Dextrose) 520 mls @ 130 mls/hr IV UD PRN PRN Reason: Potassium < 3 Magnesium Sulfate (Magnesium Sulfate) 2 gm in 50 mls @ 50 mls/hr IV UD PRN PRN Reason: Magnesium </= 1.6 Insulin Glargine (Insulin Glargine, Human 1 Unit/0.01 Ml) 10 unit SQ HS [facility] Last Admin: 04/15/22 20:46 Dose: 10 units Insulin Human Lispro (Insulin Lispro 1 Unit/0.01 Ml Unit) 0 unit SQ ACHS JACKELYN; P rotocol Last Admin: 04/15/22 20:46 Dose: 2 units Levothyroxine Sodium (Levothyroxine 150 Mcg Tablet) 150 mcg PO QAMAC [facility] Last Admin: 04/15/22 08:11 Dose: 150 mcg Losartan Potassium (Losartan 25 Mg Tablet) 12.5 mg PO HSP PRN PRN Reason: Hypertension Last Admin: 04/14/22 21:02 Dose: 12.5 mg Nitroglycerin (Nitroglycerin 0.4 Mg Tab.Subl) 0.4 mg SL Q5M PRN PRN Reason: chest pain Omeprazole (Omeprazole 20 Mg Capsule) 40 mg PO ACB [facility] Last Admin: 04/15/22 08:12 Dose: 40 mg Ondansetron HCl (Ondansetron 4 Mg/2 Ml Vial) 4 mg IV Q4HP PRN PRN Reason: Nausea And Vomiting Polyethylene Glycol (Polyethylene Glycol 3350 17 Gm Packet) 17 gm PO DAILYP PRN PRN Reason: Constipation Last Admin: 04/13/22 09:55 Dose: 17 gm Potassium Chloride (Potassium Chloride 20 Meq Tablet) 40 meq PO UD PRN PRN Reason: Potssium is 3-3.5 Potassium Chloride (Potassium Chloride 20 Meq Tablet) 40 meq PO UD PRN PRN Reason: Potassium < 3 Senna (Sennosides 1 Tablet) 2 tab PO DAILYP PRN PRN Reason: Constipation Senna/Docusate Sodium (Sennosides/Docusate Sodium 1 Tab Tablet) 1 tab PO HS [facility] Last Admin: 04/15/22 20:45 Dose: 1 tab Sevelamer Carbonate (Sevelamer 800 Mg Tablet) 800 mg PO TIDCC [facility] Last Admin: 04/15/22 16:47 Dose: 800 mg Sodium Chloride (0.9 % Sodium Chloride 10 Ml Syringe) 10 ml IV Q8 [facility] Last Admin: 04/16/22 06:01 Dose: 10 ml Tamsulosin HCl (Tamsulosin 0.4 Mg Capsule) 0.4 mg PO QDAY [facility] Last Admin: 04/15/22 08:12 Dose: 0.4 mg Vitamin D (Vitamin D3 25 Mcg Tablet) 50 mcg PO DAILY [facility] Last Admin: 04/15/22 08:11 Dose: 50 mcg A/P Narrative A/P Narrative: A: *Right foot/toe cellulitis/eschar and osteomyelitis: *ESRD on PD: *Anemia, chronic: *DM2: *HTN: *h/o CVA's w/residual left hemiparesis and cognitive impairment: on asa/plavix *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 will treat for 6-wks, f/u ESR/CRP/CMP/CBC weekly outpt -tito ordered per ID -Dr. Denny following -ID Consult -basal and SSI -monitor ESR/CRP -Continue home antiplatelet, cont home ARB -PT/OT -CM for placement needs -ppx: Heparin/PPI DNR Plan of Treatment: As laid out above Time Spent With Patient Time: Total time spent is greater than 50% in coordination of care (as documented) at patient's floor/unit and/or counseling patient: Subsequent: Total time with patient: 35 - 49 minutes
--- NOTE | 2022-04-16 08:15 | Nephrology Progress Note ---
SUBJECTIVE Subjective Patient information: Note initiated : 04/16/22 at 8:14 am Service Date, if different from initiated Date: [] Patient: Murray Beyer 86 y/o M admitted on 04/12/22 for Right foot pain. Chief Complaint: [] Principal diagnosis: right foot metatarsal osteomylitis Interval history: Pre-dialysis assessment Seen and examined on AM rounds. Data reviewed Labs pending as of 816 hr ID Recs: Patient with multiple medical problems now with a eschar on the medial aspect of the right foot along with cellulitis, osteomyelitis seen on CT. Patient responded to ceftriaxone though he did receive 1 dose of vancomycin. Patient should have a biopsy for culture and pathology. This would help guide therapy. However, if no culture to be done, can discharge on IV ceftriaxone and follow the ESR, CRP. If he does not improve then a biopsy should be done. He should have JULIO as he has no palpable pulse Vital Signs Temp Pulse Resp BP BP Pulse Ox O2 Del Method 04/16/22 04:35 37.5 C H 85 17 133/77 93 Room Air 04/16/22 02:17 86 19 146/85 04/16/22 00:53 37.2 C 90 22 152/87 94 Room Air 04/15/22 20:10 37.4 C H 145/84 04/15/22 20:14 Room Air 04/15/22 20:02 36.7 C 91 H 17 145/84 95 Room Air 04/15/22 16:00 36.2 C 75 18 136/84 92 Room Air 04/15/22 12:00 36.3 C 74 18 148/82 94 Room Air Intake and Output 04/15/22 04/16/22 04/16/22 19:59 03:59 11:59 Intake Total 200 Output Total 1 1 Balance -1 199 Intake: Oral 200 Output: # of times incontinent of urine 1 1 Other: Urine Color Yellow Urine Odor Normal Stool Size Large Stool Color Brown Stool Consistency Formed # of times incontinent of 1 Bowels Weight 87.407 kg Pertinent ROS: No fever or chills Additional PMFSH (Level 3 Only): N/A Constitutional Vitals: Vital Signs Temp Pulse Resp BP Pulse Ox O2 Del Method 37.5 C H 85 17 133/77 93 Room Air 04/16/22 04:35 04/16/22 04:35 04/16/22 04:35 04/16/22 04:35 04/16/22 04:35 04/16/22 04:35 Period Temp Pulse Resp BP Sys/Suarez Pulse Ox O2 Del Method O2 Flow Rate Last 24 Hr 36.2 C-37.5 C 74-91 17-22 133-152/77-87 92-95 Room Air-Room Air Intake and Output 04/15/22 04/16/22 04/16/22 19:59 03:59 11:59 Intake Total 200 Output Total 1 1 Balance -1 199 Weight 87.407 kg Intake & Output: Intake & Output 04/15/22 04/16/22 04/16/22 19:59 03:59 11:59 Intake Total 200 Output Total 1 1 Balance -1 199 Weight 87.407 kg Intake: Oral 200 Output: # of times incontinent of urine 1 1 Other: Urine Color Yellow Urine Odor Normal Stool Size Large Stool Color Brown Stool Consistency Formed # of times incontinent of 1 Bowels General appearance: average body habitus and mild distress Head Head exam: Present normal inspection Eye Eye exam: Present PERRL; Absent scleral icterus ENT ENT exam: Present mucous membranes moist Neck Neck exam: Absent meningismus Respiratory Respiratory exam: Present rhonchi and wheezes; Absent rales Cardiovascular Cardiovascular exam: Present normal rate and rhythm, +S1 and +S2; Absent gallop or JVD GI/Abdominal GI/Abdominal exam: Present normal bowel sounds and soft Additional comments: PD catheter in place Extremities Exam Extremities exam: Absent calf tenderness, pedal edema or Foot pink and warm Neurological Exam Neurological exam: Present CN II-XII intact Additional comments: Pseudobulbar signs Psychiatric Psychiatric exam: Present flat affect Skin Skin exam: Present dry A/P Assessment and plan (1) Encounter for peritoneal dialysis for ESRD: Assessment and plan: Is not clear to me why the patient could not do home peritoneal dialysis while in the skilled unit We will check with and case management Otherwise it will be a logistics nightmares to discharge him have been taken to [facility] interventional radiology have a cuffed dialysis catheter placed and then brought Bactrim for 3 days a week to the [facility] outpatient hemodialysis unit. Additionally since he will be on IV antibiotics those cannot be administered through the dialysis unit for the fact that this is not a dialysis related infection. Status: Chronic Comment: CCPD... May need to convert to CAPD with the providing exchanges or a cuffed dialysis catheter and then conversion to outpatient hemodialysis with 3 times a week transportation. (2) Osteomyelitis of ankle or foot, right, acute: Assessment and plan: ID recommendations reviewed Status: Acute Comment: After prolonged bedridden status and off loading of foot, he will be bedridden and a resultant downward spiral as he will be unlikely to return to home where his has keep him "going" beyond anything achievable in an institutional setting. This patient in active is schwartz to his survival (3) Hypertension, essential: Status: Chronic Comment: Controlled on amlodipine 10 mg a day, carvedilol 6.25 mg twice a day (4) Renal osteodystrophy: Assessment and plan: Phosphorus elevated increase phosphate binder Status: Chronic Comment: Monitor calcium phosphorus PTH and alkaline phosphatase (5) Secondary hyperparathyroidism of renal origin: Assessment and plan: As above Status: Chronic Comment: Currently not on a vitamin D3 or 1, 25 hydroxy vitamin D2 analog (6) 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: Assessment and plan: Increase Aranesp due to blood loss at the lab Status: Chronic Comment: Increased blood loss to lab when hospitalized Plan 1. Aranesp 2. Increase phosphate binder 3. See if CAPD can be performed by the at the facility 4. If not, then a logistical nightmare arranging a cuffed hemodialysis catheter, PICC line, 3 times a week transportation for hemodialysis to and from his snf facility and dialysis unit Narrative Plan of Treatment: As laid out above Time Spent With Patient Time: Total time spent is greater than 50% in coordination of care (as documented) at patient's floor/unit and/or counseling patient: Subsequent: Total time with patient: 50 - 65 Minutes
[2022-04-16] MEDS: INSULIN LISPRO 1 UNIT/0.01 ML UNIT SQ SCH ×4 (08:21→21:20)
[2022-04-16] MEDS: OMEPRAZOLE 20 MG CAPSULE PO SCH (08:22)
[2022-04-16] MEDS: LEVOTHYROXINE 150 MCG TABLET PO SCH (08:23)
[2022-04-16] MEDS: SEVELAMER 800 MG TABLET PO SCH ×3 (08:26→17:13)
[2022-04-16] MEDS: VITAMIN D3 25 MCG TABLET PO SCH (08:40)
[2022-04-16] MEDS: CLOPIDOGREL 75 MG TABLET PO SCH (08:40)
[2022-04-16] MEDS: TAMSULOSIN 0.4 MG CAPSULE PO SCH (08:40)
[2022-04-16] MEDS: DOCUSATE SODIUM 100 MG CAPSULE PO SCH ×2 (08:40→21:08)
[2022-04-16] MEDS: ASPIRIN 81 MG TAB.CHEW PO SCH (08:40)
[2022-04-16] MEDS: FINASTERIDE 5 MG TABLET PO SCH (08:40)
[2022-04-16] MEDS: HEPARIN 5,000 UNIT/ML VIAL SQ SCH ×2 (08:41→21:09)
[2022-04-16] MEDS: cefTRIAXone 2 GM in DEXTROSE 5% IN WATER 50 ML IV SCH (08:56)
[2022-04-16 09:03] LABS: ALT/SGPT 12 U/L (<40); AST/SGOT 18 U/L (<40); Albumin 2.3 gm/dL (3.2-5.2); Albumin/Globulin Ratio 0.6 (1.0-2.3); Alkaline Phosphatase 70 U/L (39-117); Bilirubin,Direct < 0.2 mg/dL (0-0.3); Bilirubin,Total < 0.2 mg/dL (0.1-1.0); Blood Urea Nitrogen 70 mg/dL (8-23); Calcium 8.4 mg/dL (8.6-10.4); Carbon Dioxide 24 mmol/L (22-30); Chloride 102 mmol/L (96-108); Globulin 3.6 gm/dL (2.2-3.7); Glomerular Filtration Rate 8; Glucose 158 mg/dL (70-105); Lactate Dehydrogenase 204 U/L (135-225); Phosphorous 6.1 mg/dL (2.5-4.5); Triglycerides 168 mg/dL (<150); Uric Acid 5.3 mg/dL (2.5-8.0)
[2022-04-16 09:38] LABS: Complement C3 142.3 mg/dL (90.0-180.0)
[2022-04-16] MEDS ORDERED: IPRATROPIUM/ALBUTEROL 3 ML AMPUL.NEB NEB ONE (10:12)
[2022-04-16] MEDS: COLLAGENASE TOP OINT TUBE 30GM TOPICAL SCH (13:39)
--- NOTE | 2022-04-16 14:44 | General Surgery Progress Note ---
SUBJECTIVE Subjective Patient information: Note initiated : 04/16/22 at 2:43 pm Service Date, if different from initiated Date: [] Patient: Murray Beyer 86 y/o M admitted on 04/12/22 for Right foot pain. Chief Complaint: [] Principal diagnosis: right foot metatarsal osteomylitis Additional PMFSH (Level 3 Only): Patient seen with Shakila Batres RN. In patient wound care nurse. Constitutional Vitals: Vital Signs Temp Pulse Resp BP Pulse Ox O2 Del Method 98.8 F 90 18 146/86 94 Room Air 04/16/22 12:00 04/16/22 12:00 04/16/22 12:00 04/16/22 12:00 04/16/22 08:00 04/16/22 12:00 Period Temp Pulse Resp BP Sys/Suarez Pulse Ox O2 Del Method O2 Flow Rate Last 24 Hr 97.2 F-99.5 F 75-92 17-22 133-155/77-94 92-95 Room Air-Room Air Intake and Output 04/16/22 04/16/22 04/16/22 03:59 11:59 19:59 Intake Total 560 530 Output Total 1 1 1 Balance -1 559 529 Weight 192 lb 11.2 oz Intake & Output: Intake & Output 04/16/22 04/16/22 04/16/22 03:59 11:59 19:59 Intake Total 560 530 Output Total 1 1 1 Balance -1 559 529 Weight 192 lb 11.2 oz Intake: IV 50 Rocephin 2 gm In Dextrose 5% in 50 Water 50 ml @ 100 mls/hr IV Q24H [facility] Rx#:[id number] Oral 560 480 Output: # of times incontinent of urine 1 1 1 Other: Meal Breakfast Lunch Percent of Meal Consumed 100% 100% Feeding Ability Independent Independent Urine Appearance Clear Urine Color Yellow Urine Odor Normal Stool Size Large Stool Color Brown Stool Consistency Formed # of times incontinent of 1 Bowels Exam: AVSS: No changes AURELIANO. L/E: RIGHT foot cellulitis around great toe MPJ NPU. Osteomyelitis on imaging studies. Satisfactory response to MIST / IV Ceftriaxone. DRY necrotic demarcating black eschar site improving NO tenderness and NO warmth. NO drainage. Resolving CSSSI. PD at hospital by patient's A/P Narrative A/P Narrative: Assessment: CSSSI and osteomyelitis of RIGHT great toe MPJ Responding well to IV Ceftriaxone and local care. Will HOLD OFF on bone biopsy or c/s at this time. Appreciate ID input. Risk of open bone biopsy outweighs benefit. Agree with POC by Nephrology Dr. Bautista. Plan of Treatment: Plan: Continue ongoing management. ?? PICC line for IV antibiotics. Following patient with Hospitalist. Time Spent With Patient Time: Total time spent is greater than 50% in coordination of care (as documented) at patient's floor/unit and/or counseling patient: Initial: Total time with patient: Less than 40 minutes
[2022-04-16] MEDS: HYDROcodone/APAP 5/325MG TABLET PO PRN (14:46)
[2022-04-16] MEDS: GENTAMICIN CRM 0.1% TUBE 15GM TOPICAL SCH (21:08)
[2022-04-16] MEDS: SENNOSIDES/DOCUSATE SODIUM 1 TAB TABLET PO SCH (21:08)
[2022-04-16] MEDS: INSULIN GLARGINE, HUMAN 1 UNIT/0.01 ML SQ SCH (21:21)
[2022-04-17] MEDS: 0.9 % SODIUM CHLORIDE 10 ML SYRINGE IV SCH ×6 (05:59→23:21)
[2022-04-17] MEDS: INSULIN LISPRO 1 UNIT/0.01 ML UNIT SQ SCH ×4 (07:38→21:03)
[2022-04-17] MEDS: LEVOTHYROXINE 150 MCG TABLET PO SCH (07:39)
[2022-04-17] MEDS: OMEPRAZOLE 20 MG CAPSULE PO SCH (07:39)
--- NOTE | 2022-04-17 08:06 | Nephrology Progress Note ---
SUBJECTIVE Subjective Patient information: Note initiated : 04/17/22 at 7:53 am Service Date, if different from initiated Date: [] Patient: Murray Beyer 86 y/o M admitted on 04/12/22 for Right foot pain. Chief Complaint: [Failed outpatient management of foot ulcer, CT evidence of osteomeyelitis] Principal diagnosis: right foot metatarsal osteomylitis Interval history: ID consult and recommendations noted. This patient carries a high burden of morbidity and I think this is the beginning of the end as he will lose mobility, not receive the same attention in a facility that he did by his at home in keeping a stroke-affected, frail, ESRD patient with high risk of aspiration and high risk of sacral decubitus ulcers as he is cared for 6 weeks in a SNF. His rehab potential is poor and now he must be transferred to the most grueling of dialysis modalities, hemodialysis. I suggest [facility] at home with transition to hospice, oral ABx, and continued home PD. Alternatively, a private healthcare business analyst to come to the home and help with transfer, bed bath etc. Will speak to the about this alternative plan. The plan for now is for [facility] to conduct a virtual visit, then D/C to SNF and then have OP IR place both cuffed HD catheter and tunneled CVC for vasular access the 2 days per [address] HD with [facility] Dialsysis unit andwill receiving daily IV ceftriaxone and weekly inflammatory biomarkers. An alternative pathway would be keep the patient at home with son and to help with mobility, continue PD and use po Zyvox +/- augmentin for gm neg and anerobic coverage. Home health or private care could also be employed. The goals in my opinion are limited as stated above and home care would be my choice to avoid the stress of HD and the personalized care at home. Pertinent ROS: Eating ok No fever chills or sweats Constitutional Vitals: Vital Signs Temp Pulse Resp BP Pulse Ox O2 Del Method 37.5 C H 91 H 24 H 140/80 91 Room Air 04/17/22 03:30 04/17/22 03:30 04/17/22 03:30 04/17/22 03:30 04/17/22 03:30 04/17/22 03:30 Period Temp Pulse Resp BP Sys/Suarez Pulse Ox O2 Del Method O2 Flow Rate Last 24 Hr 37.1 C-37.7 C 86-92 18-26 140-175/80-94 91-95 Room Air-Room Air Intake and Output 04/16/22 04/17/22 04/17/22 19:59 03:59 11:59 Intake Total 1170 0 Output Total 1 2 1 Balance 1169 -2 -1 Weight 87.906 kg Intake & Output: Intake & Output 04/16/22 04/17/22 04/17/22 19:59 03:59 11:59 Intake Total 1170 0 Output Total 1 2 1 Balance 1169 -2 -1 Weight 87.906 kg Intake: IV 50 Rocephin 2 gm In Dextrose 5% in 50 Water 50 ml @ 100 mls/hr IV Q24H [facility] Rx#:[id number] Oral 1120 0 Output: Void Amount 0 # of times incontinent of urine 1 2 1 Other: Meal Dinner Percent of Meal Consumed 75% Feeding Ability Independent Stool Size Smear # Voids 0 1 General appearance: mild distress and thin (frail) Head Head exam: Present normocephalic Eye Eye exam: Present EOMI and PERRL; Absent scleral icterus ENT ENT exam: Present mucous membranes dry Neck Neck exam: Absent meningismus Respiratory Respiratory exam: Present rhonchi and wheezes Cardiovascular Cardiovascular exam: Present normal rate and rhythm, +S1 and +S2 GI/Abdominal GI/Abdominal exam: Present soft Additional comments: PD catheter in place Extremities Exam Extremities exam: Absent pedal edema or tenderness Additional comments: Right medial 1st toe with less cellulitis and quarter sized eschar / wound Neurological Exam Neurological exam: Present CN II-XII intact; Absent abnormal gait (2 person assist to chair and no longer ambulatory) Additional comments: Bulbar muscle weakness Psychiatric Psychiatric exam: Present flat affect Skin Skin exam: Present abrasion and dry A/P Assessment and plan (1) Osteomyelitis of ankle or foot, right, acute: Status: Acute Comment: After prolonged bedridden status and off loading of foot, he will be bedridden and a resultant downward spiral as he will be unlikely to return to home where his has keep him "going" beyond anything achievable in an institutional setting. This patient in active is schwartz to his survival (2) Hypertension, essential: Status: Chronic Comment: Controlled on amlodipine 10 mg a day, carvedilol 6.25 mg twice a day (3) Pseudobulbar affect: Status: Acute Comment: Results of prior CVA High aspiration risk (4) Secondary hyperparathyroidism of renal origin: Status: Chronic Comment: Currently not on a vitamin D3 or 1, 25 hydroxy vitamin D2 analog (5) CVA (cerebral vascular accident): Status: Acute Comment: Resultant left sided weakness and pseudobulbar affect Qualifiers: CVA mechanism: unspecified Qualified Code(s): I63.9 - Cerebral infarction, unspecified Narrative Plan of Treatment: Plan: Continue ongoing management. Logistics have yet to be ironed out I favor limited home care but not sure where the is in all this. I hold fast yto my prediction of downward spiral, faster on hemoHD with SNF care than Home care with continued PD and oral ABx Following patient with Hospitalist. Time Spent With Patient Time: Total time spent is greater than 50% in coordination of care (as documented) at patient's floor/unit and/or counseling patient: Subsequent: Total time with patient: 50 - 65 Minutes
--- NOTE | 2022-04-17 08:29 | Internal Med Progress Note ---
SUBJECTIVE Subjective Patient information: Note initiated : 04/17/22 at 8:27 am Service Date, if different from initiated Date: [] Patient: Murray Beyer 86 y/o M admitted on 04/12/22 for Right foot pain. Chief Complaint: [] Principal diagnosis: right foot metatarsal osteomylitis Interval history: History of present illness: Mr. Beyer is a 86 year old M Presents to ED from Dr. 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 Patient has been on antibiotics over the past several weeks without improvement. Patient also refers seen early March by wound care. Per the its been enlarging and turning black in the center. Patient denies fever chills chest pain shortness of breath. CT in the ER showed osteo of the distal first metatarsal and proximal phalanx. Patient started on IV antibiotics in the ED. Blood cultures obtained. Patient is a peritoneal dialysis patient and case was discussed with Dr. Dhillon as well. 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 Also history of CAD with stents. History of diabetes. 2/3 Hemoglobin dropped to 8.1 today. No gross bleeding. Monitor closely. Pending chemistry. Peritoneal dialysis per nephrology. 04/14 Currently working with physical therapy. Patient sitting up in chair. No overnight event or new complaints. Hemoglobin improved from yesterday. Continue IV antibiotics wound care per Dr. Denny. ID consult pending. 04/15 Pleasant and sitting in chair this morning. No overnight event or new complaints. Continue IV biotic. ID consult. Wound care per Dr. Villalta 04/16 Obtaining ankle brachial index. Sorting out placement issues. Patient little wheezy this morning give nebulizer treatment. PT assessment eval. PICC line will need to be placed. Final wound care recs. 04/17 Malfunction yesterday with PD catheter. Nephrology suggested so take out the a ppropriate level of fluid as it had not been taken out enough. Patient less wheezy today. Review of Systems: denies headache/fever/chills/nausea/vomiting/chest or abdominal pain/cough/dyspnea/diarrhea. Otherwise see above. Constitutional Vitals: Vital Signs Temp Pulse Resp BP Pulse Ox O2 Del Method 99.4 F H 94 H 20 150/90 92 Room Air 04/17/22 08:00 04/17/22 08:00 04/17/22 08:00 04/17/22 08:00 04/17/22 08:00 04/17/22 08:00 Period Temp Pulse Resp BP Sys/Suarez Pulse Ox O2 Del Method O2 Flow Rate Last 24 Hr 98.8 F-99.8 F 86-94 18-26 140-175/80-93 91-95 Room Air-Room Air Intake and Output 04/16/22 04/17/22 04/17/22 19:59 03:59 11:59 Intake Total 1170 0 Output Total 1 2 1 Balance 1169 -2 -1 Weight 87.906 kg Intake & Output: Intake & Output 04/16/22 04/17/22 04/17/22 19:59 03:59 11:59 Intake Total 1170 0 Output Total 1 2 1 Balance 1169 -2 -1 Weight 87.906 kg Intake: IV 50 Rocephin 2 gm In Dextrose 5% in 50 Water 50 ml @ 100 mls/hr IV Q24H [facility] Rx#:[id number] Oral 1120 0 Output: Void Amount 0 # of times incontinent of urine 1 2 1 Other: Meal Dinner Percent of Meal Consumed 75% Feeding Ability Independent Stool Size Smear # Voids 0 1 Exam: General: Alert, Awake, No acute Distress Eyes/N/T: EOMI, Head/Neck: neck supple, CV: RRR, No murmurs, Pulm: improved wheezing b/l today, no rhonchi Abd: soft, nontender, +BS x4, PD catheter Ext: no clubbing/cyanosis/edema, foot in dressings Neuro: Alert, no focal deficits, moves all extremities, Skin: warm/dry OBJ DATA Labs 04/14/22 05:33 04/16/22 05:26 Labs: Abnormal Lab Results 04/16/22 04/16/22 04/16/22 05:26 05:26 05:26 ESR 86 H BUN 70 H Creatinine 5.6 H* Glucose 158 H Calcium 8.4 L Phosphorus 6.1 H* C-Reactive Protein 8.40 H Albumin 2.3 L Albumin/Globulin Ratio 0.6 L Triglycerides 168 H 04/14/22 04/14/22 09:51 05:30 ESR 90 H BUN Creatinine Glucose Calcium Phosphorus C-Reactive Protein 9.70 H Albumin Albumin/Globulin Ratio Triglycerides Meds: Medications Acetaminophen (Acetaminophen 325 Mg Tablet) 650 mg PO Q6HP PRN; Protocol PRN Reason: Per Pain Protocol/Fever > 101 Last Admin: 04/14/22 07:54 Dose: 650 mg Hydrocodone Bitart/Acetaminophen (Hydrocodone/Apap 5/325mg Tablet) 1 tab PO Q4HP PRN PRN Reason: PAIN LEVEL 3-6 Last Admin: 04/16/22 14:46 Dose: 1 tab Albuterol/Ipratropium (Ipratropium/Albuterol 3 Ml Ampul.Neb) 3 ml NEB Q4HP PRN PRN Reason: Shortness Of Breath Aspirin (Aspirin 81 Mg Tab.Chew) 81 mg PO DAILY [facility] Last Admin: 04/16/22 08:40 Dose: 81 mg Clopidogrel Bisulfate (Clopidogrel 75 Mg Tablet) 75 mg PO QDAY [facility] Last Admin: 04/16/22 08:40 Dose: 75 mg Collagenase (Collagenase Top Oint Tube 30gm) 1 dose TOPICAL DAILY [facility] Last Admin: 04/16/22 13:39 Dose: 1 dose Dextrose (Dextrose 50% 50 Ml Vial) 0 ml IV UD PRN PRN Reason: Per Sliding Scale Diagnostic Test (Pha) (Accu-Chek 1 Each Strip) 1 each FS ACHS [facility] Last Admin: 04/17/22 07:38 Dose: 1 each Docusate Sodium (Docusate Sodium 100 Mg Capsule) 100 mg PO BID [facility] Last Admin: 04/16/22 21:08 Dose: 100 mg Finasteride (Finasteride 5 Mg Tablet) 5 mg PO QDAY [facility] Last Admin: 04/16/22 08:40 Dose: 5 mg Gentamicin Sulfate (Gentamicin Crm 0.1% Tube 15gm) 1 dose TOPICAL HS JACKELYN; Protocol Last Admin: 04/16/22 21:08 Dose: 1 dose Glucose (Dextrose 31 Gm Oral.Susp) 15 gm PO PRN PRN PRN Reason: Hypoglycemia Heparin Sodium (Porcine) (Heparin 5,000 Unit/Ml Vial) 5,000 unit SQ Q12 [facility] Last Admin: 04/16/22 21:09 Dose: 5,000 unit Heparin Sodium (Porcine) (Heparin Flush 10 Units/Ml 5 Ml Syringe) 2 ml IV Q12 [facility] Last Admin: 04/16/22 23:12 Dose: Not Given Hydralazine HCl (Hydralazine 20 Mg/Ml Vial) 0 mg IV Q2HP PRN PRN Reason: Hypertension Ceftriaxone Sodium 2 gm/ (Dextrose) 50 mls @ 100 mls/hr IV Q24H [facility]; Protocol Last Infusion: 04/16/22 12:46 Dose: Infused Potassium Chloride 40 meq/ (Dextrose) 520 mls @ 130 mls/hr IV UD PRN PRN Reason: Potassium < 3 Magnesium Sulfate (Magnesium Sulfate) 2 gm in 50 mls @ 50 mls/hr IV UD PRN PRN Reason: Magnesium </= 1.6 Insulin Glargine (Insulin Glargine, Human 1 Unit/0.01 Ml) 10 unit SQ [facility] Last Admin: 04/16/22 21:21 Dose: 10 units Insulin Human Lispro (Insulin Lispro 1 Unit/0.01 Ml Unit) 0 unit SQ [facility]; Protocol Last Admin: 04/17/22 07:38 Dose: 6 units Levothyroxine Sodium (Levothyroxine 150 Mcg Tablet) [facility] Last Admin: 04/17/22 07:39 Dose: 150 mcg Losartan Potassium (Losartan 25 Mg Tablet) 12.5 mg PO HSP PRN PRN Reason: Hypertension Last Admin: 04/14/22 21:02 Dose: 12.5 mg Nitroglycerin (Nitroglycerin 0.4 Mg Tab.Subl) 0.4 mg SL Q5M PRN PRN Reason: chest pain Omeprazole (Omeprazole 20 Mg Capsule) 40 mg PO ACB [facility] Last Admin: 04/17/22 07:39 Dose: 40 mg Ondansetron HCl (Ondansetron 4 Mg/2 Ml Vial) 4 mg IV Q4HP PRN PRN Reason: Nausea And Vomiting Polyethylene Glycol (Polyethylene Glycol 3350 17 Gm Packet) 17 gm PO DAILYP PRN PRN Reason: Constipation Last Admin: 04/13/22 09:55 Dose: 17 gm Potassium Chloride (Potassium Chloride 20 Meq Tablet) 40 meq PO UD PRN PRN Reason: Potssium is 3-3.5 Potassium Chloride (Potassium Chloride 20 Meq Tablet) 40 meq PO UD PRN PRN Reason: Potassium < 3 Senna (Sennosides 1 Tablet) 2 tab PO DAILYP PRN PRN Reason: Constipation Senna/Docusate Sodium (Sennosides/Docusate Sodium 1 Tab Tablet) 1 tab PO HS [facility] Last Admin: 04/16/22 21:08 Dose: 1 tab Sevelamer Carbonate (Sevelamer 800 Mg Tablet) 1,600 mg PO TIDCC [facility] Last Admin: 04/16/22 17:13 Dose: 1,600 mg Sodium Chloride (0.9 % Sodium Chloride 10 Ml Syringe) 10 ml IV Q8 [facility] Last Admin: 04/17/22 05:59 Dose: 10 ml Sodium Chloride (0.9 % Sodium Chloride 10 Ml Syringe) 10 ml IV Q12 [facility] Last Admin: 04/16/22 21:22 Dose: Not Given Tamsulosin HCl (Tamsulosin 0.4 Mg Capsule) 0.4 mg PO QDAY [facility] Last Admin: 04/16/22 08:40 Dose: 0.4 mg Vitamin D (Vitamin D3 25 Mcg Tablet) 50 mcg PO DAILY [facility] Last Admin: 04/16/22 08:40 Dose: 50 mcg A/P Narrative A/P Narrative: A: *Right foot/toe cellulitis/eschar and osteomyelitis: *ESRD on PD: *Anemia, chronic: *DM2: *HTN: *h/o CVA's w/residual left hemiparesis and cognitive impairment: on asa/plavix *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 will treat for 6-wks, recommend to f/u esr/crp/cmb/cbc while on IV abx -tito ordered per ID -Dr. Denny/Lily following > likely HD cath/PICC by dr Moon -ID Consult -basal and SSI -monitor ESR/CRP -Continue home antiplatelet, cont home ARB -PT/OT -CM for placement needs -ppx: Heparin/PPI DNR Plan of Treatment: Plan: Continue ongoing management. ?? PICC line for IV antibiotics. Following patient with Hospitalist. Time Spent With Patient Time: Total time spent is greater than 50% in coordination of care (as documented) at patient's floor/unit and/or counseling patient:
[2022-04-17] MEDS: cefTRIAXone 2 GM in DEXTROSE 5% IN WATER 50 ML IV SCH (08:31)
[2022-04-17] MEDS: SEVELAMER 800 MG TABLET PO SCH ×3 (08:32→16:44)
[2022-04-17] MEDS: CLOPIDOGREL 75 MG TABLET PO SCH (08:32)
[2022-04-17] MEDS: ASPIRIN 81 MG TAB.CHEW PO SCH (08:32)
[2022-04-17] MEDS: VITAMIN D3 25 MCG TABLET PO SCH (08:32)
[2022-04-17] MEDS: TAMSULOSIN 0.4 MG CAPSULE PO SCH (08:32)
[2022-04-17] MEDS: DOCUSATE SODIUM 100 MG CAPSULE PO SCH ×2 (08:32→20:40)
[2022-04-17] MEDS: FINASTERIDE 5 MG TABLET PO SCH (08:32)
[2022-04-17] MEDS: HEPARIN 5,000 UNIT/ML VIAL SQ SCH ×2 (08:32→20:51)
[2022-04-17] MEDS ORDERED: CO Q PO SCH (09:00)
[2022-04-17] MEDS ORDERED: VITAMIN D3 25 MCG TABLET PO SCH (09:00)
[2022-04-17] MEDS: COLLAGENASE TOP OINT TUBE 30GM TOPICAL SCH (13:11)
--- NOTE | 2022-04-17 13:11 | Internal Med Progress Note ---
SUBJECTIVE Subjective Patient information: Note initiated : 04/17/22 at 1:10 pm Service Date, if different from initiated Date: [] Patient: Murray Beyer 86 y/o M admitted on 04/12/22 for Right foot pain. Chief Complaint: [] Principal diagnosis: right foot metatarsal osteomylitis Interval history: History of present illness: Mr. Beyer is a 86 year old M Presents to ED from Dr. 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 Patient has been on antibiotics over the past several weeks without improvement. Patient also refers seen early March by wound care. Per the its been enlarging and turning black in the center. Patient denies fever chills chest pain shortness of breath. CT in the ER showed osteo of the distal first metatarsal and proximal phalanx. Patient started on IV antibiotics in the ED. Blood cultures obtained. Patient is a peritoneal dialysis patient and case was discussed with Dr. Dhillon as well. 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 Also history of CAD with stents. History of diabetes. 2 Hemoglobin dropped to 8.1 today. No gross bleeding. Monitor closely. Pending chemistry. Peritoneal dialysis per nephrology. 04/14 Currently working with physical therapy. Patient sitting up in chair. No overnight event or new complaints. Hemoglobin improved from yesterday. Continue IV antibiotics wound care per Dr. Denny. ID consult pending. 04/15 Pleasant and sitting in chair this morning. No overnight event or new complaints. Continue IV biotic. ID consult. Wound care per Dr. Villalta 04/16 Obtaining ankle brachial index. Sorting out placement issues. Patient little wheezy this morning give nebulizer treatment. PT assessment eval. PICC line will need to be placed. Final wound care recs. 04/17 Malfunction yesterday with PD catheter. Nephrology suggested so take out the a ppropriate level of fluid as it had not been taken out enough. Patient less wheezy today. 04/18 The patient had fevers yesterday, high-grade temperatures today. The patient's is leaning towards taking the patient going home on oral antibiotics and considering hospice. Physical exam Head: Atraumatic, normal inspection. Eyes: normal appearance, no scleral icterus. Neck: full ROM Respiratory: no respiratory distress. Cardiovascular: normal rate and rhythm, S1, S2. GI/Abdominal: soft, nontender, no guarding. Extremities: full range of motion, nontender. Neurological: CN II-XII intact, intact motor, intact sensation. Psychiatric: Impaired cognition. Skin: warm, normal color Constitutional Vitals: Vital Signs Temp Pulse Resp BP Pulse Ox O2 Del Method 99.4 F H 94 H 20 150/90 92 Room Air 04/17/22 08:00 04/17/22 08:00 04/17/22 08:00 04/17/22 08:00 04/17/22 08:00 04/17/22 08:00 Period Temp Pulse Resp BP Sys/Suarez Pulse Ox O2 Del Method O2 Flow Rate Last 24 Hr 98.9 F-99.8 F 86-94 20-26 140-175/80-93 91-95 Room Air-Room Air Intake and Output 04/17/22 04/17/22 04/17/22 03:59 11:59 19:59 Intake Total 0 50 Output Total 2 1 Balance -2 49 Intake & Output: Intake & Output 04/17/22 04/17/22 04/17/22 03:59 11:59 19:59 Intake Total 0 50 Output Total 2 1 Balance -2 49 Intake: IV 50 Rocephin 2 gm In Dextrose 5% in 50 Water 50 ml @ 100 mls/hr IV Q24H [facility] Rx#:[id number] Oral 0 Output: Void Amount 0 # of times incontinent of urine 2 1 Other: Stool Size Smear # Voids 0 1 OBJ DATA Labs 04/14/22 05:33 04/16/22 05:26 Labs: Abnormal Lab Results 04/16/22 04/16/22 04/16/22 05:26 05:26 05:26 ESR 86 H BUN 70 H Creatinine 5.6 H* Glucose 158 H Calcium 8.4 L Phosphorus 6.1 H* C-Reactive Protein 8.40 H Albumin 2.3 L Albumin/Globulin Ratio 0.6 L Triglycerides 168 H Meds: Medications Acetaminophen (Acetaminophen 325 Mg Tablet) 650 mg PO Q6HP PRN; Protocol PRN Reason: Per Pain Protocol/Fever > 101 Last Admin: 04/14/22 07:54 Dose: 650 mg Hydrocodone Bitart/Acetaminophen (Hydrocodone/Apap 5/325mg Tablet) 1 tab PO Q4HP PRN PRN Reason: PAIN LEVEL 3-6 Last Admin: 04/16/22 14:46 Dose: 1 tab Albuterol/Ipratropium (Ipratropium/Albuterol 3 Ml Ampul.Neb) 3 ml NEB Q4HP PRN PRN Reason: Shortness Of Breath Aspirin (Aspirin 81 Mg Tab.Chew) 81 mg PO DAILY [facility] Last Admin: 04/17/22 08:32 Dose: 81 mg Clopidogrel Bisulfate (Clopidogrel 75 Mg Tablet) 75 mg PO QDAY [facility] Last Admin: 04/17/22 08:32 Dose: 75 mg Collagenase (Collagenase Top Oint Tube 30gm) 1 dose TOPICAL DAILY [facility] Last Admin: 04/16/22 13:39 Dose: 1 dose Dextrose (Dextrose 50% 50 Ml Vial) 0 ml IV UD PRN PRN Reason: Per Sliding Scale Diagnostic Test (Pha) (Accu-Chek 1 Each Strip) 1 each FS ACHS [facility] Last Admin: 04/17/22 11:23 Dose: 1 each Docusate Sodium (Docusate Sodium 100 Mg Capsule) 100 mg PO BID [facility] Last Admin: 04/17/22 08:32 Dose: 100 mg Finasteride (Finasteride 5 Mg Tablet) 5 mg PO QDAY [facility] Last Admin: 04/17/22 08:32 Dose: 5 mg Gentamicin Sulfate (Gentamicin Crm 0.1% Tube 15gm) 1 dose TOPICAL HS [facility]; Protocol Last Admin: 04/16/22 21:08 Dose: 1 dose Glucose (Dextrose 31 Gm Oral.Susp) 15 gm PO PRN PRN PRN Reason: Hypoglycemia Heparin Sodium (Porcine) (Heparin 5,000 Unit/Ml Vial) 5,000 unit SQ Q12 [facility] Last Admin: 04/17/22 08:32 Dose: 5,000 unit Heparin Sodium (Porcine) (Heparin Flush 10 Units/Ml 5 Ml Syringe) 2 ml IV Q12 [facility] Last Admin: 04/17/22 08:32 Dose: Not Given Hydralazine HCl (Hydralazine 20 Mg/Ml Vial) 0 mg IV Q2HP PRN PRN Reason: Hypertension Ceftriaxone Sodium 2 gm/ (Dextrose) 50 mls @ 100 mls/hr IV Q24H [facility]; Protocol Last Infusion: 04/17/22 09:05 Dose: Infused Potassium Chloride 40 meq/ (Dextrose) 520 mls @ 130 mls/hr IV UD PRN PRN Reason: Potassium < 3 Magnesium Sulfate (Magnesium Sulfate) 2 gm in 50 mls @ 50 mls/hr IV UD PRN PRN Reason: Magnesium </= 1.6 Insulin Glargine (Insulin Glargine, Human 1 Unit/0.01 Ml) 10 unit SQ [facility] Last Admin: 04/16/22 21:21 Dose: 10 units Insulin Human Lispro (Insulin Lispro 1 Unit/0.01 Ml Unit) 0 unit SQ [facility]; Protocol Last Admin: 04/17/22 11:24 Dose: Not Given Levothyroxine Sodium (Levothyroxine 150 Mcg Tablet) 150 mcg PO QAMAC [facility] Last Admin: 04/17/22 07:39 Dose: 150 mcg Losartan Potassium (Losartan 25 Mg Tablet) 12.5 mg PO HSP PRN PRN Reason: Hypertension Last Admin: 04/14/22 21:02 Dose: 12.5 mg Nitroglycerin (Nitroglycerin 0.4 Mg Tab.Subl) 0.4 mg SL Q5M PRN PRN Reason: chest pain Omeprazole (Omeprazole 20 Mg Capsule) 40 mg PO ACB [facility] Last Admin: 04/17/22 07:39 Dose: 40 mg Ondansetron HCl (Ondansetron 4 Mg/2 Ml Vial) 4 mg IV Q4HP PRN PRN Reason: Nausea And Vomiting Polyethylene Glycol (Polyethylene Glycol 3350 17 Gm Packet) 17 gm PO DAILYP PRN PRN Reason: Constipation Last Admin: 04/13/22 09:55 Dose: 17 gm Potassium Chloride (Potassium Chloride 20 Meq Tablet) 40 meq PO UD PRN PRN Reason: Potssium is 3-3.5 Potassium Chloride (Potassium Chloride 20 Meq Tablet) 40 meq PO UD PRN PRN Reason: Potassium < 3 Senna (Sennosides 1 Tablet) 2 tab PO DAILYP PRN PRN Reason: Constipation Senna/Docusate Sodium (Sennosides/Docusate Sodium 1 Tab Tablet) 1 tab PO HS [facility] Last Admin: 04/16/22 21:08 Dose: 1 tab Sevelamer Carbonate (Sevelamer 800 Mg Tablet) 1,600 mg PO TIDCC [facility] Last Admin: 04/17/22 12:04 Dose: 1,600 mg Sodium Chloride (0.9 % Sodium Chloride 10 Ml Syringe) 10 ml IV Q8 [facility] Last Admin: 04/17/22 05:59 Dose: 10 ml Sodium Chloride (0.9 % Sodium Chloride 10 Ml Syringe) 10 ml IV Q12 [facility] Last Admin: 04/17/22 08:37 Dose: Not Given Tamsulosin HCl (Tamsulosin 0.4 Mg Capsule) 0.4 mg PO QDAY [facility] Last Admin: 04/17/22 08:32 Dose: 0.4 mg Vitamin D (Vitamin D3 25 Mcg Tablet) 50 mcg PO DAILY [facility] Last Admin: 04/17/22 08:32 Dose: 50 mcg A/P Narrative A/P Narrative: A: *Right foot/toe cellulitis/eschar and osteomyelitis: *ESRD on PD: *Anemia, chronic: *DM2: *HTN: *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 ID recommended treating for 6- wks, and f/u esr/crp/cmb/cbc while on IV abx. -Patient's is leaning towards taking the patient home on oral antibiotics. -Dr. Denny/Lily following > likely HD cath/PICC by dr Moon -ID Consulted -basal and SSI -monitor ESR/CRP -Continue home antiplatelet, cont home ARB -PT/OT -CM for placement needs -ppx: Heparin/PPI -CODE STATUS: DNR/DNI -Disposition: Probably home on oral antibiotics for osteomyelitis and possibly home hospice. The patient's says that her son will arrive on 04/21/2022 to help care for the patient at home. Plan of Treatment: Plan: Continue ongoing management. Logistics have yet to be ironed out I favor limited home care but not sure where the is in all this. I hold fast yto my prediction of downward spiral, faster on hemoHD with SNF care than Home care with continued PD and oral ABx Following patient with Hospitalist. Time Spent With Patient Time: Total time spent is greater than 50% in coordination of care (as documented) at patient's floor/unit and/or counseling patient:
[2022-04-17] MEDS: ACETAMINOPHEN 325 MG TABLET PO PRN ×2 (16:41→23:20)
[2022-04-17] MEDS: SENNOSIDES/DOCUSATE SODIUM 1 TAB TABLET PO SCH (20:40)
[2022-04-17] MEDS: GENTAMICIN CRM 0.1% TUBE 15GM TOPICAL SCH (20:41)
[2022-04-17] MEDS: INSULIN GLARGINE, HUMAN 1 UNIT/0.01 ML SQ SCH (21:03)
[2022-04-18] MEDS: 0.9 % SODIUM CHLORIDE 10 ML SYRINGE IV SCH ×5 (05:28→22:12)
--- NOTE | 2022-04-18 07:20 | Nephrology Progress Note ---
SUBJECTIVE Subjective Patient information: Note initiated : 04/18/22 at 7:09 am Service Date, if different from initiated Date: [] Patient: Murray Beyer 86 y/o M admitted on 04/12/22 for Right foot pain. Chief Complaint: [Foot infection] Principal diagnosis: right foot metatarsal osteomylitis Interval history: Too many moving parts (or too many cooks in the kitchen) to formulate a discharge plan ID recommendations noted but there is disagreement amongst team and the final rec ABx is Rocephin for 6 weeks No matter what, if he goes to a facility he will need a cuffed 2 lumen HD catheter and a tunneled CVC for ABx. Dr Moon has been consulted and would do a virtual visit here and then discharge to correction where he will then be transported to [facility] for 2 catheters to be placed then back to the correction and HD q T/ as outpatient here at [facility] HD unit. ID requests weekly labs which can be drawn BUT NOT ORDERED by HD staff/MD. This will require outpatient EMR requests to be sent to ID MD. If they choose home with palliative care the son could help out for ~1 month, home health and a private pay aid would be needed but he could be at home, continue home PD and take zyvox + augmentin or flagyl for anerobic coverage. This would be the least disrupting and since goals too my eye are limited as outlined in the 04/17/2022 note, a preferable path. The tells me the son is arriving in [place] on Saturday. They are tentatively agreeable to going home on Saturday, continuing home peritoneal dialysis, they will need a hospital bed, and either home health or palliative care to provide safety and supervision of the wound itself. Wound care will need to teach the how to do the dressing changes and all the DME must be ordered ahead of time. Antibiotics will be given IP (vanco q3 days) or orally Zyvox po plus rifampin. as there is no hardware in place. Continue wound care with Dr Denny. Pertinent ROS: non toxic and eating 100% of meals Additional PMFSH (Level 3 Only): N/A Constitutional Vitals: Vital Signs Temp Pulse Resp BP Pulse Ox O2 Del Method 37.1 C 85 22 123/73 92 Room Air 04/18/22 03:33 04/18/22 03:33 04/18/22 03:33 04/18/22 03:33 04/18/22 03:33 04/18/22 03:33 Period Temp Pulse Resp BP Sys/Suarez Pulse Ox O2 Del Method O2 Flow Rate Last 24 Hr 36.9 C-38.8 C 85-100 12-24 123-150/71-90 92-96 Room Air-Room A ir Intake and Output 04/17/22 04/18/22 04/18/22 19:59 03:59 11:59 Intake Total 150 300 Output Total 4 1 Balance 150 296 -1 Weight 87.906 kg Intake & Output: Intake & Output 04/17/22 04/18/22 04/18/22 19:59 03:59 11:59 Intake Total 150 300 Output Total 4 1 Balance 150 296 -1 Weight 87.906 kg Intake: Oral 150 300 Output: # of times incontinent of urine 4 1 Other: Stool Size Large Smear Stool Color Brown Brown Stool Consistency Soft # Voids 1 1 General appearance: mild distress and thin (frail) Head Head exam: Present normocephalic Eye Eye exam: Present EOMI and PERRL; Absent scleral icterus ENT ENT exam: Present mucous membranes dry Neck Neck exam: Absent meningismus Respiratory Respiratory exam: Present rhonchi and wheezes Cardiovascular Cardiovascular exam: Present normal rate and rhythm, +S1 and +S2 GI/Abdominal GI/Abdominal exam: Present soft Additional comments: PD catheter in place Extremities Exam Extremities exam: Absent pedal edema or tenderness Additional comments: Right medial 1st toe with less cellulitis and quarter sized eschar / wound Neurological Exam Neurological exam: Present CN II-XII intact; Absent abnormal gait (2 person assist to chair and no longer ambulatory) Additional comments: Bulbar muscle weakness Psychiatric Psychiatric exam: Present flat affect Skin Skin exam: Present abrasion and dry A/P Assessment and plan (1) Osteomyelitis of ankle or foot, right, acute: Plan: Home with DME, 6 weeks of ABx (Vancomycin 1 gm IV q72 hrs with weekly labs by outpatient infusion service), home health for wound care, home peritoneal dialysis, outpatient visits with Dr Denny. Once we are sure home IV Rx infusion can be done place picc line. Looking to D/C home Saturday once son arrives. Status: Acute Comment: After prolonged bedridden status and off loading of foot, he will be bedridden and a resultant downward spiral as he will be unlikely to return to home where his has keep him "going" beyond anything achievable in an institutional setting. This patient in active is schwartz to his survival (2) Secondary hyperparathyroidism of renal origin: Assessment and plan: Increased Renvela to 1600 mg po TID c Meals Status: Chronic Comment: Currently not on a vitamin D3 or 1, 25 hydroxy vitamin D2 analog Trend Ca, PO4 and PTHi (3) ESRD on peritoneal dialysis: Assessment and plan: Apr 18, 2022: Increased to 2 liter x 6 exchanges is working well with U/F. Now edema free Status: Chronic Narrative Plan of Treatment: Plan: Continue ongoing management. Logistics have yet to be ironed out I favor limited home care but not sure where the is in all this. I hold fast yto my prediction of downward spiral, faster on hemoHD with SNF care than Home care with continued PD and oral ABx Following patient with Hospitalist. Time Spent With Patient Time: Total time spent is greater than 50% in coordination of care (as documented) at patient's floor/unit and/or counseling patient:
[2022-04-18] MEDS: INSULIN LISPRO 1 UNIT/0.01 ML UNIT SQ SCH ×4 (08:21→21:16)
[2022-04-18] MEDS ORDERED: cefTRIAXone 2 GM VIAL ONE (08:51)
[2022-04-18] MEDS: CLOPIDOGREL 75 MG TABLET PO SCH (08:56)
[2022-04-18] MEDS: VITAMIN D3 25 MCG TABLET PO SCH (08:56)
[2022-04-18] MEDS: ASPIRIN 81 MG TAB.CHEW PO SCH (08:56)
[2022-04-18] MEDS: OMEPRAZOLE 20 MG CAPSULE PO SCH (08:56)
[2022-04-18] MEDS: TAMSULOSIN 0.4 MG CAPSULE PO SCH (08:56)
[2022-04-18] MEDS: SEVELAMER 800 MG TABLET PO SCH ×4 (08:56→17:45)
[2022-04-18] MEDS: LEVOTHYROXINE 150 MCG TABLET PO SCH (08:56)
[2022-04-18] MEDS: DOCUSATE SODIUM 100 MG CAPSULE PO SCH ×2 (08:58→21:16)
[2022-04-18] MEDS: FINASTERIDE 5 MG TABLET PO SCH (08:58)
[2022-04-18] MEDS: HEPARIN 5,000 UNIT/ML VIAL SQ SCH ×2 (08:58→21:15)
[2022-04-18] MEDS: COLLAGENASE TOP OINT TUBE 30GM TOPICAL SCH (08:58)
[2022-04-18] MEDS: cefTRIAXone 2 GM in DEXTROSE 5% IN WATER 50 ML IV SCH (10:38)
[2022-04-18] MEDS: HYDROcodone/APAP 5/325MG TABLET PO PRN (12:14)
[2022-04-18] MEDS: GENTAMICIN CRM 0.1% TUBE 15GM TOPICAL SCH (21:00)
[2022-04-18] MEDS: INSULIN GLARGINE, HUMAN 1 UNIT/0.01 ML SQ SCH (21:15)
[2022-04-18] MEDS: SENNOSIDES/DOCUSATE SODIUM 1 TAB TABLET PO SCH (21:16)
[2022-04-19] MEDS: 0.9 % SODIUM CHLORIDE 10 ML SYRINGE IV SCH ×6 (07:42→21:12)
[2022-04-19] MEDS: LEVOTHYROXINE 150 MCG TABLET PO SCH (07:43)
[2022-04-19] MEDS: OMEPRAZOLE 20 MG CAPSULE PO SCH (07:43)
[2022-04-19] MEDS: INSULIN LISPRO 1 UNIT/0.01 ML UNIT SQ SCH ×3 (07:57→16:32)
[2022-04-19] MEDS ORDERED: cefTRIAXone 2 GM VIAL ONE (09:05)
[2022-04-19] MEDS: SEVELAMER 800 MG TABLET PO SCH ×4 (09:10→16:32)
[2022-04-19] MEDS: ASPIRIN 81 MG TAB.CHEW PO SCH (09:10)
[2022-04-19] MEDS: VITAMIN D3 25 MCG TABLET PO SCH (09:12)
[2022-04-19] MEDS: FINASTERIDE 5 MG TABLET PO SCH (09:13)
[2022-04-19] MEDS: CLOPIDOGREL 75 MG TABLET PO SCH (09:13)
[2022-04-19] MEDS: TAMSULOSIN 0.4 MG CAPSULE PO SCH (09:13)
[2022-04-19] MEDS: HEPARIN 5,000 UNIT/ML VIAL SQ SCH (09:13)
[2022-04-19] MEDS: DOCUSATE SODIUM 100 MG CAPSULE PO SCH (09:13)
[2022-04-19] MEDS: COLLAGENASE TOP OINT TUBE 30GM TOPICAL SCH (09:13)
[2022-04-19] MEDS: cefTRIAXone 2 GM in DEXTROSE 5% IN WATER 50 ML IV SCH (09:19)
--- NOTE | 2022-04-19 10:45 | Internal Med Progress Note ---
SUBJECTIVE Subjective Patient information: Note initiated : 04/19/22 at 10:39 am Service Date, if different from initiated Date: [] Patient: Murray Beyer 86 y/o M admitted on 04/12/22 for Right foot pain. Chief Complaint: [] Principal diagnosis: right foot metatarsal osteomylitis Interval history: History of present illness: Mr. Beyer is a 86 year old M Presents to ED from Dr. 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 Patient has been on antibiotics over the past several weeks without improvement. Patient also refers seen early March by wound care. Per the its been enlarging and turning black in the center. Patient denies fever chills chest pain shortness of breath. CT in the ER showed osteo of the distal first metatarsal and proximal phalanx. Patient started on IV antibiotics in the ED. Blood cultures obtained. Patient is a peritoneal dialysis patient and case was discussed with Dr. Dhillon as well. 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 Also history of CAD with stents. History of diabetes. 04/13 Hemoglobin dropped to 8.1 today. No gross bleeding. Monitor closely. Pending chemistry. Peritoneal dialysis per nephrology. 04/14 Currently working with physical therapy. Patient sitting up in chair. No overnight event or new complaints. Hemoglobin improved from yesterday. Continue IV antibiotics wound care per Dr. Denny. ID consult pending. 04/15 Pleasant and sitting in chair this morning. No overnight event or new complaints. Continue IV biotic. ID consult. Wound care per Dr. Villalta 04/16 Obtaining ankle brachial index. Sorting out placement issues. Patient little wheezy this morning give nebulizer treatment. PT assessment eval. PICC line will need to be placed. Final wound care recs. 04/17 Malfunction yesterday with PD catheter. Nephrology suggested so take out the appropriate level of fluid as it had not been taken out enough. Patient less wheezy today. 04/18 The patient had fevers yesterday, high-grade temperatures today. The patient's is leaning towards taking the patient going home on oral antibiotics and considering hospice in the near future. 04/19 Patient is afebrile overnight, planning to have a goals of care conference today with the patient and to decide on antibiotic treatment course. Options include home IV antibiotic via PICC line or oral antibiotic treatment for osteomyelitis. The patient does not want to go to a nursing home facility. Physical exam Head: Atraumatic, normal inspection. Eyes: normal appearance, no scleral icterus. Neck: full ROM Respiratory: no respiratory distress. Cardiovascular: normal rate and rhythm, S1, S2. GI/Abdominal: soft, nontender, no guarding. Extremities: Dry, tender wound over right MTP joint, improving cellulitis of right foot. Neurological: CN II-XII intact, intact motor, intact sensation. Psychiatric: Impaired cognition. Skin: warm, normal color Constitutional Vitals: Vital Signs Temp Pulse Resp BP Pulse Ox O2 Del Method 99 F 84 19 164/84 95 Room Air 04/19/22 10:25 04/19/22 10:25 04/19/22 10:25 04/19/22 10:25 04/19/22 10:25 04/19/22 10:25 Period Temp Pulse Resp BP Sys/Suarez Pulse Ox O2 Del Method O2 Flow Rate Last 24 Hr 97.7 F-99.5 F 82-90 18-20 122-164/73-86 94-97 Room Air-Room Air Intake and Output 04/18/22 04/19/22 04/19/22 19:59 03:59 11:59 Intake Total 480 250 50 Output Total 3 1 Balance 477 250 49 Weight 88.088 kg Intake & Output: Intake & Output 04/18/22 04/19/22 04/19/22 19:59 03:59 11:59 Intake Total 480 250 50 Output Total 3 1 Balance 477 250 49 Weight 88.088 kg Intake: IV 50 Rocephin 2 gm In Dextrose 5% in 50 Water 50 ml @ 100 mls/hr IV Q24H [facility] Rx#:[id number] Oral 480 250 Output: # of times incontinent of urine 3 1 Other: Meal Dinner Percent of Meal Consumed 100% Feeding Ability Assist with Tray Set Up Stool Size Moderate Stool Color Brown Stool Consistency Soft Formed # of times incontinent of 1 Bowels OBJ DATA Labs 04/14/22 05:33 04/16/22 05:26 Meds: Medications Acetaminophen (Acetaminophen 325 Mg Tablet) 650 mg PO Q6HP PRN; Protocol PRN Reason: Per Pain Protocol/Fever > 101 Last Admin: 04/17/22 23:20 Dose: 650 mg Hydrocodone Bitart/Acetaminophen (Hydrocodone/Apap 5/325mg Tablet) 1 tab PO Q4HP PRN PRN Reason: PAIN LEVEL 3-6 Last Admin: 04/18/22 12:14 Dose: 1 tab Albuterol/Ipratropium (Ipratropium/Albuterol 3 Ml Ampul.Neb) 3 ml NEB Q4HP PRN PRN Reason: Shortness Of Breath Aspirin (Aspirin 81 Mg Tab.Chew) 81 mg PO DAILY [facility] Last Admin: 04/19/22 09:10 Dose: 81 mg Clopidogrel Bisulfate (Clopidogrel 75 Mg Tablet) 75 mg PO QDAY [facility] Last Admin: 04/19/22 09:13 Dose: 75 mg Collagenase (Collagenase Top Oint Tube 30gm) 1 dose TOPICAL DAILY [facility] Last Admin: 04/19/22 09:13 Dose: 1 dose Dextrose (Dextrose 50% 50 Ml Vial) 0 ml IV UD PRN PRN Reason: Per Sliding Scale Diagnostic Test (Pha) (Accu-Chek 1 Each Strip) 1 each FS ACHS [facility] Last Admin: 04/19/22 07:48 Dose: 1 each Docusate Sodium (Docusate Sodium 100 Mg Capsule) 100 mg PO BID [facility] Last Admin: 04/19/22 09:13 Dose: 100 mg Finasteride (Finasteride 5 Mg Tablet) 5 mg PO QDAY [facility] Last Admin: 04/19/22 09:13 Dose: 5 mg Gentamicin Sulfate (Gentamicin Crm 0.1% Tube 15gm) 1 dose TOPICAL HS [facility]; Protocol Last Admin: 04/18/22 21:00 Dose: 1 dose Glucose (Dextrose 31 Gm Oral.Susp) 15 gm PO PRN PRN PRN Reason: Hypoglycemia Heparin Sodium (Porcine) (Heparin 5,000 Unit/Ml Vial) 5,000 unit SQ Q12 [facility] Last Admin: 04/19/22 09:13 Dose: 5,000 unit Heparin Sodium (Porcine) (Heparin Flush 10 Units/Ml 5 Ml Syringe) 2 ml IV Q12 [facility] Last Admin: 04/19/22 10:15 Dose: Not Given Hydralazine HCl (Hydralazine 20 Mg/Ml Vial) 0 mg IV Q2HP PRN PRN Reason: Hypertension Ceftriaxone Sodium 2 gm/ (Dextrose) 50 mls @ 100 mls/hr IV Q24H [facility]; Protocol Last Infusion: 04/19/22 09:50 Dose: Infused Potassium Chloride 40 meq/ (Dextrose) 520 mls @ 130 mls/hr IV UD PRN PRN Reason: Potassium < 3 Magnesium Sulfate (Magnesium Sulfate) 2 gm in 50 mls @ 50 mls/hr IV UD PRN PRN Reason: Magnesium </= 1.6 Insulin Glargine (Insulin Glargine, Human 1 Unit/0.01 Ml) 10 unit SQ HS [facility] Last Admin: 04/18/22 21:15 Dose: 10 units Insulin Human Lispro (Insulin Lispro 1 Unit/0.01 Ml Unit) 0 unit SQ ACHS [facility]; Protocol Last Admin: 04/19/22 07:57 Dose: 4 units Levothyroxine Sodium (Levothyroxine 150 Mcg Tablet) 150 mcg PO QAMAC [facility] Last Admin: 04/19/22 07:43 Dose: 150 mcg Losartan Potassium (Losartan 25 Mg Tablet) 12.5 mg PO HSP PRN PRN Reason: Hypertension Last Admin: 04/14/22 21:02 Dose: 12.5 mg Nitroglycerin (Nitroglycerin 0.4 Mg Tab.Subl) 0.4 mg SL Q5M PRN PRN Reason: chest pain Omeprazole (Omeprazole 20 Mg Capsule) 40 mg PO ACB [facility] Last Admin: 04/19/22 07:43 Dose: 40 mg Ondansetron HCl (Ondansetron 4 Mg/2 Ml Vial) 4 mg IV Q4HP PRN PRN Reason: Nausea And Vomiting Polyethylene Glycol (Polyethylene Glycol 3350 17 Gm Packet) 17 gm PO DAILYP PRN PRN Reason: Constipation Last Admin: 04/13/22 09:55 Dose: 17 gm Potassium Chloride (Potassium Chloride 20 Meq Tablet) 40 meq PO UD PRN PRN Reason: Potssium is 3-3.5 Potassium Chloride (Potassium Chloride 20 Meq Tablet) 40 meq PO UD PRN PRN Reason: Potassium < 3 Senna (Sennosides 1 Tablet) 2 tab PO DAILYP PRN PRN Reason: Constipation Senna/Docusate Sodium (Sennosides/Docusate Sodium 1 Tab Tablet) 1 tab PO HS [facility] Last Admin: 04/18/22 21:16 Dose: 1 tab Sevelamer Carbonate (Sevelamer 800 Mg Tablet) 1,600 mg PO TIDCC [facility] Last Admin: 04/19/22 09:10 Dose: 1,600 mg Sodium Chloride (0.9 % Sodium Chloride 10 Ml Syringe) 10 ml IV Q8 [facility] Last Admin: 04/19/22 07:42 Dose: 10 ml Sodium Chloride (0.9 % Sodium Chloride 10 Ml Syringe) 10 ml IV Q12 [facility] Last Admin: 04/19/22 09:13 Dose: 10 ml Tamsulosin HCl (Tamsulosin 0.4 Mg Capsule) 0.4 mg PO QDAY [facility] Last Admin: 04/19/22 09:13 Dose: 0.4 mg Vitamin D (Vitamin D3 25 Mcg Tablet) 50 mcg PO DAILY [facility] Last Admin: 04/19/22 09:12 Dose: 50 mcg A/P Narrative A/P Narrative: A: *Right foot/toe cellulitis/eschar and osteomyelitis: *ESRD on PD: *Anemia, chronic: *DM2: *HTN: *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 ID recommended treating for 6- wks, and f/u esr/crp/cmb/cbc while on IV abx. -IV antibiotic treatment recommended however due to the logistical difficulties if home IV antibiotics the patient's is considering oral antibiotics. -Dr. Denny/Lily following > likely HD cath/PICC by dr Moon -ID consulted, recommended IV ceftriaxone for 6 weeks. -basal and SSI -monitor ESR/CRP -Continue home antiplatelet, cont home ARB -PT/OT -CM for placement needs -ppx: Heparin/PPI -CODE STATUS: DNR/DNI -Disposition: Home on oral antibiotics versus IV antibiotic via PICC line. The patient's says that her son will arrive on 04/21/2022 to help care for the patient at home. Plan of Treatment: Plan: Continue ongoing management. Logistics have yet to be ironed out I favor limited home care but not sure where the is in all this. I hold fast yto my prediction of downward spiral, faster on hemoHD with SNF care than Home care with continued PD and oral ABx Following patient with Hospitalist. Time Spent With Patient Time: Total time spent is greater than 50% in coordination of care (as documented) at patient's floor/unit and/or counseling patient:
[2022-04-19] MEDS ORDERED: 0.9 % SODIUM CHLORIDE 10 ML SYRINGE IV PRN (12:05)
--- NOTE | 2022-04-19 18:27 | Nephrology Progress Note ---
SUBJECTIVE Subjective Patient information: Note initiated : 04/19/22 at 6:24 pm Service Date, if different from initiated Date: [] Patient: Murray Beyer 86 y/o M admitted on 04/12/22 for Right foot pain. Chief Complaint: [foot osteo] Principal diagnosis: right foot metatarsal osteomylitis Interval history: As far as I am concerned this gentleman can be discharged on Saturday once the following criteria have been met: 1. His DME has arrived at his house (hospital bed) 2. A PICC line has been placed 3. He services has been confirmed to give this patient vancomycin 1 g every 72 hours beginning Monday, April 25, 2022 4. Home health for the IV infusion service will have to draw blood work every 6 days prior to the start of the infusion of vancomycin. 5. He will continue on his home peritoneal dialysis program 6. Either the or home health will be responsible for wound care and dressing changes and follow-up with Dr. Denny 7. Since he is my dialysis patient, I will supervise and monitor the IV vancomycin and other lab work ordered 8. Continue third-generation cephalosporin until discharge. 9. He will receive vancomycin on Saturday the day of discharge with the next dose being 25 April 2022. PreHospital wound care note: Date of Admission 04/12/2022 Day #8 of IV Ceftriaxone No cultures obtained No fever or WBC CT with bone cortical erosion in vicinity of ulceration. Local cellulitis/redness with clinical improvement. Pertinent ROS: no fever Additional PMFSH (Level 3 Only): n/a Constitutional Vitals: Vital Signs Temp Pulse Resp BP Pulse Ox O2 Del Method 37.2 C 84 16 147/84 95 Room Air 04/19/22 15:23 04/19/22 15:23 04/19/22 15:23 04/19/22 15:23 04/19/22 15:23 04/19/22 15:23 Period Temp Pulse Resp BP Sys/Suarez Pulse Ox O2 Del Method O2 Flow Rate Last 24 Hr 36.5 C-37.2 C 82-90 16-19 128-164/73-86 94-99 Room Air-Room Air Intake and Output 04/19/22 04/19/22 04/19/22 03:59 11:59 19:59 Intake Total 250 50 Output Total 1 Balance 250 49 Intake & Output: Intake & Output 04/19/22 04/19/22 04/19/22 03:59 11:59 19:59 Intake Total 250 50 Output Total 1 Balance 250 49 Intake: IV 50 Rocephin 2 gm In Dextrose 5% in 50 Water 50 ml @ 100 mls/hr IV Q24H [facility] Rx#:[id number] Oral 250 Output: # of times incontinent of urine 1 Other: Meal Dinner Percent of Meal Consumed 75% Feeding Ability Assist with Tray Set Up Stool Size Moderate Stool Color Brown Stool Consistency Soft Formed # of times incontinent of 1 Bowels General appearance: mild distress and thin (frail) Head Head exam: Present normocephalic Eye Eye exam: Present EOMI and PERRL; Absent scleral icterus ENT ENT exam: Present mucous membranes dry Neck Neck exam: Absent meningismus Respiratory Respiratory exam: Present rhonchi and wheezes Cardiovascular Cardiovascular exam: Present normal rate and rhythm, +S1 and +S2 GI/Abdominal GI/Abdominal exam: Present soft Additional comments: PD catheter in place Extremities Exam Extremities exam: Absent pedal edema or tenderness Additional comments: Right medial 1st toe with less cellulitis and quarter sized eschar / wound Neurological Exam Neurological exam: Present CN II-XII intact; Absent abnormal gait (2 person assist to chair and no longer ambulatory) Additional comments: Bulbar muscle weakness Psychiatric Psychiatric exam: Present flat affect Skin Skin exam: Present abrasion and dry A/P Assessment and plan (1) ESRD on peritoneal dialysis: Plan: See the HPI for a painfully detailed list of plans. Spoke with nursing, case management, family, Dr Moon's office (no longer needed). [place] that things are arranged tomorrow. Status: Chronic (2) Osteomyelitis of ankle or foot, right, acute: Assessment and plan: 6 weeks of IV vanco Wound care F/U with Dr Denisha Escalera by home infusion and monitoring by Dr Bautista Home PD Guarded expectations of strengthening and return to self ambulation. Plan: See HPI boldfaced entry Status: Acute Comment: After prolonged bedridden status and off loading of foot, he will be bedridden and a resultant downward spiral as he will be unlikely to return to home where his has keep him "going" beyond anything achievable in an institutional setting. This patient in active is schwartz to his survival Narrative Plan of Treatment: Plan: Continue ongoing management. Logistics have yet to be ironed out I favor limited home care but not sure where the is in all this. I hold fast to my prediction of downward spiral, faster on hemoHD with SNF care than Home care with continued PD and IV and/or Oral ABx Time Spent With Patient Time: Total time spent is greater than 50% in coordination of care (as documented) at patient's floor/unit and/or counseling patient:
[2022-04-19] MEDS: GENTAMICIN CRM 0.1% TUBE 15GM TOPICAL SCH (21:10)
[2022-04-20] MEDS: INSULIN LISPRO 1 UNIT/0.01 ML UNIT SQ SCH ×3 (00:17→12:50)
[2022-04-20] MEDS: DOCUSATE SODIUM 100 MG CAPSULE PO SCH ×2 (00:17→08:52)
[2022-04-20] MEDS: HEPARIN 5,000 UNIT/ML VIAL SQ SCH ×2 (00:17→10:47)
[2022-04-20] MEDS: INSULIN GLARGINE, HUMAN 1 UNIT/0.01 ML SQ SCH (00:18)
[2022-04-20] MEDS: SENNOSIDES/DOCUSATE SODIUM 1 TAB TABLET PO SCH (00:18)
[2022-04-20] MEDS: 0.9 % SODIUM CHLORIDE 10 ML SYRINGE IV SCH ×4 (08:02→12:54)
[2022-04-20] MEDS: CLOPIDOGREL 75 MG TABLET PO SCH (08:51)
[2022-04-20] MEDS: LEVOTHYROXINE 150 MCG TABLET PO SCH (08:52)
[2022-04-20] MEDS: OMEPRAZOLE 20 MG CAPSULE PO SCH (08:52)
[2022-04-20] MEDS: ASPIRIN 81 MG TAB.CHEW PO SCH (08:52)
[2022-04-20] MEDS: TAMSULOSIN 0.4 MG CAPSULE PO SCH (08:52)
[2022-04-20] MEDS: VITAMIN D3 25 MCG TABLET PO SCH (08:53)
[2022-04-20] MEDS: FINASTERIDE 5 MG TABLET PO SCH (08:53)
[2022-04-20] MEDS: SEVELAMER 800 MG TABLET PO SCH ×2 (08:53→12:53)
[2022-04-20] MEDS: cefTRIAXone 2 GM in DEXTROSE 5% IN WATER 50 ML IV SCH (09:50)
[2022-04-20] MEDS: COLLAGENASE TOP OINT TUBE 30GM TOPICAL SCH (10:24)
--- NOTE | 2022-04-20 13:07 | Discharge Summary ---
Discharge Provider Provider IMPORTANT FOLLOW-UP INFORMATION FOR PCP: Patient information: Note initiated : 04/20/22 at 1:05 pm Service Date, if different from initiated Date: [] Patient: Murray Beyer 86 y/o M admitted on 04/12/22 for Right foot pain. Chief Complaint: [] Date of admission: 04/12/22 20:10 Discharge date: 04/20/22 Primary care physician: Sarmad Quintana MD Consults: 04/12/22 Consult to Physician [CONS] Stat Comment: Consulting Provider: Reynold Bhakta Reason For Exam: Physician to Consult Consult to Physician [CONS] Stat Comment: Consulting Provider: Kylah Dhillon Reason For Exam: Physician to Consult 04/12/22 20:15 Consult to Physician [CONS] Routine Comment: Consulting Provider: Michael Denny Reason For Exam: Physician to Consult Consult to Physician [CONS] Routine Comment: osteomyelitis of foot right Consulting Provider: Ryne VERDUGO Reason For Exam: Physician to Consult 04/17/22 11:35 Consult to Physician [CONS] Routine Comment: Consulting Provider: [facility] Reason For Exam: Physician to Consult COURSE Hospital Course Hospital course: Mr. Beyer is a 86 year old M Presents to ED from Dr. 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 Patient has been on antibiotics over the past several weeks without improvement. Patient also refers seen early March by wound care. Per the its been enlarging and turning black in the center. Patient denies fever chills chest pain shortness of breath. CT in the ER showed osteo of the distal first metatarsal and proximal phalanx. Patient started on IV antibiotics in the ED. Blood cultures obtained. Patient is a peritoneal dialysis patient and case was discussed with Dr. Dhillon as well. 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 Also history of CAD with stents. History of diabetes. 2/3 Hemoglobin dropped to 8.1 today. No gross bleeding. Monitor closely. Pending chemistry. Peritoneal dialysis per nephrology. 2/4 Currently working with physical therapy. Patient sitting up in chair. No overnight event or new complaints. Hemoglobin improved from yesterday. Continue IV antibiotics wound care per Dr. Denny. ID consult pending. 2/5 Pleasant and sitting in chair this morning. No overnight event or new complaints. Continue IV biotic. ID consult. Wound care per Dr. Villalta 04/16 Obtaining ankle brachial index. Sorting out placement issues. Patient little wheezy this morning give nebulizer treatment. PT assessment eval. PICC line will need to be placed. Final wound care recs. 04/17 Malfunction yesterday with PD catheter. Nephrology suggested so take out the appropriate level of fluid as it had not been taken out enough. Patient less wheezy today. 04/18 The patient had fevers yesterday, high-grade temperatures today. The patient's is leaning towards taking the patient going home on oral antibiotics and c onsidering hospice in the near future. 04/19 Patient is afebrile overnight, planning to have a goals of care conference today with the patient and to decide on antibiotic treatment course. Options include home IV antibiotic via PICC line or oral antibiotic treatment for osteomyelitis. The patient does not want to go to a [facility] facility. 04/20 The patient's has decided to pursue home IV antibiotic treatment for osteomyelitis. PICC line placement will be attempted today. Discharge to swing bed status at Located within [facility]. Physical exam Head: Atraumatic, normal inspection. Eyes: normal appearance, no scleral icterus. Neck: full ROM Respiratory: no respiratory distress. Cardiovascular: normal rate and rhythm, S1, S2. GI/Abdominal: soft, nontender, no guarding. Extremities: Dry, tender wound over right MTP joint, improving cellulitis of right foot. Neurological: CN II-XII intact, intact motor, intact sensation. Psychiatric: Impaired cognition. Skin: warm, normal color Discharge diagnosis: Osteomyelitis of right toe Time Spent with Patient Time attestation: Total time spent providing and/or coordinating discharge services: Time spent: Greater than 30 minutes EXAM Constitutional Vitals: Temp Pulse Resp BP Pulse Ox O2 Del Method 98.2 F 87 16 160/55 95 Room Air 04/20/22 08:00 04/20/22 08:00 04/20/22 08:00 04/20/22 08:00 04/20/22 08:00 04/20/22 08:00 Discharge Plan Patient/Caregiver Discharge Instructions Activity: increase activity as tolerated Diet: Consistent Carbohydrate Instructions: Osteomyelitis (ED), Diabetic Foot Ulcers (ED) Activity Restrictions/Additional Instructions: Wound Care to right great toe diabetic ulcer: Cleanse with Vashe. Allow Vashe moistened gauze to contact wound for at least 5 minutes. Apply a nickel sized amount of Santyl to the wound bed and cover with foam or gauze dressing. Change daily. Follow-up with ID specialist for long-term antibiotics outpatient. Prescriptions: New vancomycin 1,000 mg recon soln 1 g IV Q72 Qty: 12 0RF Continued (DME) blood-glucose meter Kit See Rx Instructions .ROUTE .MEDSUPPLY Qty: 1 0RF Rx Instructions: check glucose AC and HS (DME) [facility] Test Strip Strip See Rx Instructions .Route Qty: 300 5RF Rx Instructions: Use to test BG after meals and at bedtime as needed (DME) lancets [OneTouch Delica Lancets] 30 gauge misc See Rx Instructions .Route Qty: 300 5RF Rx Instructions: Use to test BG after meals and at bedtime as needed nitroglycerin 0.4 mg tablet, sublingual 0.4 mg sublingual Q5M PRN (Reason: chest pain) Qty: 100 3RF Rx Instructions: do not exceed 3 doses per episode gentamicin 0.1 % ointment 1 applic topical TID Qty: 30 11RF levothyroxine 150 mcg tablet 150 mcg PO QDAY Qty: 90 1RF Levemir FlexTouch U-100 Insuln 100 unit/mL (3 mL) insulin pen 10 unit subcut QHS Qty: 15 1RF finasteride 5 mg tablet 5 mg PO QDAY Qty: 90 1RF clopidogrel [Plavix] 75 mg tablet 75 mg PO QDAY Qty: 90 1RF omeprazole 40 mg capsule,delayed release(DR/EC) 40 mg PO QDAY Qty: 90 3RF sevelamer carbonate 800 mg tablet 800 mg PO BID Qty: 180 11RF (DME) pen needle, diabetic [Comfort EZ Pen [place]] 32 gauge x 5/32" needle See Rx Instructions .Route Qty: 100 3RF Rx Instructions: Use once daily with Levemir injections aspirin 81 mg tablet,delayed release (DR/EC) 81 mg PO QDAY losartan 25 mg tablet 12.5 mg PO QHS PRN (Reason: Hypertension) Rx Instructions: Hold if systolic BP is <150. PRN give only if systolic BP is >150 Flonase Sensimist 27.5 mcg/actuation spray,suspension 1 spray INTRANASAL QDAY PRN (Reason: Allergies) Rx Instructions: into each nostril Bedside Commode See Rx Instructions .ROUTE .COMPLEX Qty: 1 0RF Rx Instructions: ESRD on PD Deconditioning protein and calorie malnutrition; fall risk; sennosides-docusate sodium [Stimulant Laxative Plus] 8.6-50 mg Tablet 1 tab PO HS Qty: 30 0RF tamsulosin [Flomax] 0.4 mg capsule 0.4 mg PO QDAY coQ10 (ubiquinol) 100 mg Capsule 100 mg PO QAM multivit with min-folic acid 0.4 mg Tablet 2 tab PO DAILY Rx Instructions: cardio plus, take with food cholecalciferol (vitamin D3) [Vitamin D3] 50 mcg (2,000 unit) Tablet 50 mcg PO DAILY ascorbic acid (vitamin C) 1,000 mg Tablet 1,000 mg PO DAILY Discontinued vancomycin in 0.9 % sodium chl 1 gram/200 mL piggyback 1 g IV .q 3 day Qty: 18 0RF Rx Instructions: To be given q 72 hrs by home infusion service No Action vancomycin in 0.9 % sodium chl 1 gram/200 mL piggyback 1 g IV .q 3 day Qty: 18 0RF Rx Instructions: To be given q 72 hrs by home infusion service Other Ambulatory Orders: Complete Blood Count (Q6D) Timeframe: 20220427 Facility: [facility] - Location: Laboratory Ordered By: Dilan Quintanilla Complete Blood Count (Q6D) Timeframe: 20220428 Facility: [facility] - Location: Laboratory Ordered By: Dilan Quintanilla Complete Blood Count (Q6D) Timeframe: 20220429 Facility: [facility] - Location: Laboratory Ordered By: Dilan Quintanilla Complete Blood Count (Q6D) Timeframe: 20220430 Facility: [facility] - Location: Laboratory Ordered By: Dilan Quintanilla Complete Blood Count (Q6D) Timeframe: [id number] Facility: [facility] - Location: Laboratory Ordered By: Dilan Quintanilla Comprehensive Metabolic Panel (Q6D) Timeframe: [id number] Facility: [facility] - Location: Laboratory Ordered By: Dilan Quintanilla Comprehensive Metabolic Panel (Q6D) Timeframe: [id number] Facility: [facility] - Location: Laboratory Ordered By: Dilan Ficek Comprehensive Metabolic Panel (Q6D) Timeframe: [id number] Facility: [facility] - Location: Laboratory Ordered By: Dilan Ficek Comprehensive Metabolic Panel (Q6D) Timeframe: 20220430 Facility: [facility] - Location: Laboratory Ordered By: Dilan Ficek Comprehensive Metabolic Panel (Q6D) Timeframe: [id number] Facility: [facility] - Location: Laboratory Ordered By: Dilan Ficek C-Reactive Protein (Q6D) Timeframe: [id number] Facility: [facility] - Location: Laboratory Ordered By: Dilan Ficek C-Reactive Protein (Q6D) Timeframe: [id number] Facility: [facility] - Location: Laboratory Ordered By: Dilan Ficek C-Reactive Protein (Q6D) Timeframe: [id number] Facility: [facility] - Location: Laboratory Ordered By: Dilan Ficek C-Reactive Protein (Q6D) Timeframe: [id number] Facility: [facility] - Location: Laboratory Ordered By: Dilan Ficek C-Reactive Protein (Q6D) Timeframe: [id number] Facility: [facility] - Location: Laboratory Ordered By: Dilan Ficek Vancomycin,Trough (Q6D) Timeframe: [id number] Facility: [facility] - Location: Laboratory Ordered By: Dilan Ficek Vancomycin,Trough (Q6D) Timeframe: [id number] Facility: [facility] - Location: Laboratory Ordered By: Dilan Ficek Vancomycin,Trough (Q6D) Timeframe: [id number] Facility: [facility] - Location: Laboratory Ordered By: Dilan Ficek Vancomycin,Trough (Q6D) Timeframe: [id number] Facility: [facility] - Location: Laboratory Ordered By: Dilan Ficek Vancomycin,Trough (Q6D) Timeframe: [id number] Facility: [facility] - Location: Laboratory Ordered By: Dilan Quintanilla Hospital Bed (ONCE) Location: None Selected Ordered By: Dilan Quintanilla Follow Up Plan Follow up with: Michael Denny MD [Physician] - (Follow up in [facility] for diabetic foot ulcer in 7-10 days after discharge.) Sarmad Quintana MD [Primary Care Provider] - Patient Disposition: Home Health Service Plan of Treatment: Plan: Continue ongoing management. Logistics have yet to be ironed out I favor limited home care but not sure where the is in all this. I hold fast to my prediction of downward spiral, faster on hemoHD with SNF care than Home care with continued PD and IV and/or Oral ABx Overall status at discharge: patient is progressing back to baseline
--- NOTE | 2022-04-20 13:26 | Nephrology Progress Note ---
SUBJECTIVE Subjective Patient information: Note initiated : 04/20/22 at 1:25 pm Service Date, if different from initiated Date: [] Patient: Murray Beyer 86 y/o M admitted on 04/12/22 for Right foot pain. Chief Complaint: [Right foot medial ulcer that failed outpatient antibiotics] Principal diagnosis: right foot metatarsal osteomylitis Interval history: Apparently going to a swing bed with plans to discharge on Saturday. As far as I am concerned this gentleman can be discharged on Saturday once the following criteria have been met: 1. His DME has arrived at his house (hospital bed) 2. A PICC line has been placed 3. He services has been confirmed to give this patient vancomycin 1 g every 72 hours beginning Monday, April 25, 2022 4. Home health for the IV infusion service will have to draw blood work every 6 days prior to the start of the infusion of vancomycin. 5. He will continue on his home peritoneal dialysis program 6. Either the or home health will be responsible for wound care and dressing changes and follow-up with Dr. Denny 7. Since he is my dialysis patient, I will supervise and monitor the IV vancomycin and other lab work ordered 8. Continue third-generation cephalosporin until discharge. 9. He will receive vancomycin on Saturday the day of discharge with the next dose being 25 April 2022. 30 minutes spent with patient, , case management, guest house manager I am told [facility] will be the provider for IV vancomycin every 72 hours. I have ordered labs every 6 days to be drawn immediately before every other dose of vancomycin to monitor the levels At home and the will do the patient's dialysis and some of the wound care DME and home health is being organized. Being for the son to arrive to help care for his father Saturday He should stay on Rocephin through Saturday He will receive his first dose of vancomycin 1 g IV on Friday, April 22, 2022 and then every 72 hours thereafter until 6 full weeks are completed. Dr. Manriquez will be in charge of wound care I will manage the dialysis, antibiotic therapy, and lab follow-up Pertinent ROS: Doing better with more aggressive diuresis and intensification of his peritoneal dialysis Increased his Renvela to 1600 mg 3 times a day with meals due to high serum phosphorus Additional PMFSH (Level 3 Only): Not appropriate Constitutional Vitals: Vital Signs Temp Pulse Resp BP Pulse Ox O2 Del Method 36.8 C 87 16 160/55 95 Room Air 04/20/22 08:00 04/20/22 08:00 04/20/22 08:00 04/20/22 08:00 04/20/22 08:00 04/20/22 08:00 Period Temp Pulse Resp BP Sys/Suarez Pulse Ox O2 Del Method O2 Flow Rate Last 24 Hr 36.8 C-37.2 C 84-87 16-16 144-160/55-84 95-100 Room Air-Room Air Intake and Output 04/20/22 04/20/22 04/20/22 03:59 11:59 19:59 Intake Total 410 Output Total 2 3 Balance -2 407 Weight 88.042 kg Intake & Output: Intake & Output 04/20/22 04/20/22 04/20/22 03:59 11:59 19:59 Intake Total 410 Output Total 2 3 Balance -2 407 Weight 88.042 kg Intake: IV 50 Rocephin 2 gm In Dextrose 5% in 50 Water 50 ml @ 100 mls/hr IV Q24H [facility] Rx#:[id number] Oral 360 Output: # of times incontinent of urine 2 3 Other: Meal Breakfast Percent of Meal Consumed 100% Feeding Ability Assist with Tray Set Up Urine Color Yellow Pale Urine Odor Normal Stool Size Moderate Large Stool Color Brown Brown Stool Consistency Soft Loose # Bowel Movements 1 # of times incontinent of 1 Bowels General appearance: mild distress and thin (frail) Head Head exam: Present normocephalic Eye Eye exam: Present EOMI and PERRL; Absent scleral icterus ENT ENT exam: Present mucous membranes dry Neck Neck exam: Absent meningismus Respiratory Respiratory exam: Present rhonchi and wheezes Cardiovascular Cardiovascular exam: Present normal rate and rhythm, +S1 and +S2 GI/Abdominal GI/Abdominal exam: Present soft Additional comments: PD catheter in place Extremities Exam Extremities exam: Absent pedal edema or tenderness Additional comments: Right medial 1st toe with less cellulitis and quarter sized eschar / wound Neurological Exam Neurological exam: Present CN II-XII intact; Absent abnormal gait (2 person assist to chair and no longer ambulatory) Additional comments: Bulbar muscle weakness Psychiatric Psychiatric exam: Present flat affect Skin Skin exam: Present abrasion and dry A/P Assessment and plan (1) ESRD on peritoneal dialysis: Status: Chronic Comment: To remain on peritoneal dialysis At home he will have 6 L of 1.5 and 6 L of 2.5% PD fluid, 6 to liter exchanges over 12 hours, had a 300 cc daytime well (2) Osteomyelitis of ankle or foot, right, acute: Status: Acute Comment: After prolonged bedridden status and off loading of foot, he will be bedridden and a resultant downward spiral as he will be unlikely to return to home where his has keep him "going" beyond anything achievable in an institutional setting. 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 His DME has arrived at his house (hospital bed) 2. A PICC line has been placed 3. He services has been confirmed to give this patient vancomycin 1 g every 72 hours beginning Monday, April 25, 2022 4. Home health for the IV infusion service will have to draw blood work every 6 days prior to the start of the infusion of vancomycin. 5. He will continue on his home peritoneal dialysis program 6. Either the or home health will be responsible for wound care and dressing changes and follow-up with Dr. Denny 7. Since he is my dialysis patient, I will supervise and monitor the IV vancomycin and other lab work ordered 8. Continue third-generation cephalosporin until discharge. 9. He will receive vancomycin on Saturday the day of discharge with the next dose being 25 April 2022. Narrative Plan of Treatment: Plan: Going to Swing bed As written above and the plan Time Spent With Patient Time: Total time spent is greater than 50% in coordination of care (as documented) at patient's floor/unit and/or counseling patient:
--- NOTE | 2022-04-20 16:24 | XRay Report ---
INDICATION: PICC PLACEMENT TECHNIQUE: AP portable supine chest x-ray COMPARISON: Previous chest x-ray dated 01/10/2021 FINDINGS: Right PIC line placement attempted. Images demonstrate guidewire tip and catheter tip in the right axilla at the junction of the subclavian vein and axillary vein. Placement was apparently unsuccessful and this was removed. IMPRESSION: Unsuccessful right PICC line placement Interpreted and Authenticated by: Humberto Javed 04/20/22
[2022-04-22] MEDS ORDERED: VANCOMYCIN 1,000 MG in 0.9 % SODIUM CHLORIDE 250 ML IV ONE (09:00)
== END 2022-04-20 16:00 | disposition home health service (06) | DRG 539 ==
LOC: ED 13:55 → MEDSUR 20:10
PROVIDERS: ADMIT Internal Medicine; ATTEND Internal Medicine